=== PATIENT | male | born 1980 | race Caucasian/White ===

== ENCOUNTER 2017-01-24 11:25 | Emergency (ER) | payer SELFPAY ==
[2017-01-24] MEDS ORDERED: CYCLOBENZAPRINE 10MG STARTER 3 TAB BTL PO STA (12:28)
[2017-01-24] MEDS ORDERED: KETOROLAC 60 MG/2 ML VIAL IM STA (12:28)
--- NOTE | 2017-01-24 12:32 | ED ---
General Adult HPI - General Chief complaint: Back Pain/Injury Stated complaint: LOWER BACK PAIN Time Seen by Provider: 01/24/17 12:00 Source: patient, RN notes reviewed Mode of arrival: ambulatory Limitations: no limitations - History of Present Illness Initial comments: Patient 36-year-old male who presents emergency room today with a chief complaint of increased left lower back pain over the last few days. He denies any specific injury or trauma. He does not that he feels pain radiate down into the left buttocks along with at times pain shooting down to the left foot. Patient does admit that it's worse with certain movements. She suggested time sleeping at night due to pain. He spent using ibuprofen along with Tylenol for the pain with little relief the symptoms. He denies any bowel or bladder incontinence retention. Denies any saddle anesthesia. Patient denies any recent fever, chills, shortness of breath, chest pain, abdominal pain, nausea or vomiting, dysuria or hematuria, constipation or diarrhea, headaches or visual changes, or any other complaints. - Related Data Previous Rx's Medication Instructions Recorded Cyclobenzaprine [Flexeril] 10 mg PO TID #20 tab 01/24/17 Dexamethasone 0.75 mg PO DIRECTED #12 tablet 01/24/17 Lidocaine [Lidoderm 5% Patch] 1 patch TRANSDERM DAILY #7 patch 01/24/17 Allergies Allergy/AdvReac Type Severity Reaction Status Date / Time No Known Allergies Allergy Verified 01/24/17 11:46 Review of Systems ROS Statement: Those systems with pertinent positive or pertinent negative responses have been documented in the HPI. ROS Other: All systems not noted in ROS Statement are negative. Past Medical History Past Medical History: No Reported History History of Any Multi-Drug Resistant Organisms: None Reported Past Surgical History: Appendectomy Past Psychological History: No Psychological Hx Reported Smoking Status: Never smoker Past Alcohol Use History: None Reported Past Drug Use History: None Reported General Exam - General Exam Comments Initial Comments: General: The patient is awake and alert, in no distress, and does not appear acutely ill. Eye: Pupils are equal, round and reactive to light, extra-ocular movements are intact. No nystagmus. There is normal conjunctiva bilaterally. No signs of icterus. Ears, nose, mouth and throat: There are moist mucous membranes and no oral lesions. Neck: The neck is supple, there is no tenderness or JVD. Cardiovascular: There is a regular rate and rhythm. No murmur, rub or gallop is appreciated. Respiratory: Lungs are clear to auscultation, respirations are non-labored, breath sounds are equal. No wheezes, stridor, rales, or rhonchi. Gastrointestinal: Soft, non-distended, non-tender abdomen without masses or organomegaly noted. There is no rebound or guarding present. No CVA tenderness. Bowel sounds are unremarkable. Musculoskeletal: Patient does have a normal appearance of the thoracic or lumbar spine with no step-offs forms appreciated. No tenderness over the spinous processes. Patient does have some paravertebral tenderness locally to the left side of the lumbar spine at L3-L4. Does have some tenderness over the SI joint. Strength 5/5. Sensation intact. Pulses equal bilaterally 2+. Neurological: A&O x 3. CN II-XII intact, There are no obvious motor or sensory deficits. Coordination appears grossly intact. Speech is normal. Skin: Skin is warm and dry and no rashes or lesions are noted. Psychiatric: Cooperative, appropriate mood & affect, normal judgment. Limitations: no limitations Course Vital Signs 01/24/17 11:43 Temperature 98.9 F Pulse Rate 69 Respiratory 18 Rate Blood Pressure 181/103 O2 Sat by Pulse 98 Oximetry Medical Decision Making - Medical Decision Making Patient given dose of Toradol here in the emergency room along with muscular large. Advised to use anti-inflammatories along with muscle relaxer, phan steroid aniline patch for symptoms. Advised follow-up with family doctor or orthopedic for further evaluation. Sinus symptoms of concern and reason for return were discussed with the patient. He states understanding and is in agreement. Disposition Clinical Impression: Acute low back pain Disposition: HOME SELF-CARE Condition: Good Instructions: Acute Low Back Pain (ED) Additional Instructions: Please use medication as discussed. Please follow-up with family doctor in the next 2 days of symptoms have not improved. Please return to emergency room if the symptoms increase or worsen or for any other concerns. Prescriptions: Cyclobenzaprine [Flexeril] 10 mg PO TID #20 tab Dexamethasone 0.75 mg PO DIRECTED #12 tablet Lidocaine [Lidoderm 5% Patch] 1 patch TRANSDERM DAILY #7 patch Referrals: None,Stated [Primary Care Provider] - 1-2 days Elissa Rashid MD [STAFF PHYSICIAN] - 1-2 days Heithoff,Mark, DO [Doctor of Osteopathic Medicine] - 1-2 days Time of Disposition: 12:31
[2017-01-24 12:35] VITALS: BP 139/94; PULSE 108; RESP 20
[2017-01-24 12:39] VITALS: TEMP 97.9
== END 2017-01-24 12:45 | disposition home or self-care (01) ==
LOC: EC 11:25
DX: M54.5 Low back pain (principal)
CPT/HCPCS: 99283 ×2; 96372 ×2; J1885

== ENCOUNTER 2017-04-14 19:41 | Emergency (ER) | payer OTHER ==
--- NOTE | 2017-04-14 20:46 | ED ---
General Adult HPI - General Chief complaint: Urogenital Stated complaint: Unable to urinate Time Seen by Provider: 04/14/17 20:15 Source: patient, family, RN notes reviewed, old records reviewed Mode of arrival: ambulatory Limitations: no limitations - History of Present Illness Initial comments: chief complaint and history of present illness a 36-year-old male here with his . The patient reports he's had some difficulty emptying his bladder. Currently is over 250 ML's of urine remained after having urinated. He reports never able to get much more than several tablespoons out. He reports that this started several months ago. He did not follow-up with either her back surgeon because of low back pain or urologist. He denies taking any antihistamines lately. He reports for the last several months been having this problem on again off again. Denies fever denies chills - Related Data Home Medications Medication Instructions Recorded Confirmed Ibuprofen [Motrin] 600 mg PO Q6HR PRN 01/25/17 04/14/17 Previous Rx's Medication Instructions Recorded Levofloxacin [Levaquin] 500 mg PO DAILY #6 tab 04/14/17 Allergies Allergy/AdvReac Type Severity Reaction Status Date / Time No Known Allergies Allergy Verified 04/14/17 20:01 Review of Systems ROS Statement: Those systems with pertinent positive or pertinent negative responses have been documented in the HPI. review of systems no other complaints other than occasional urinary retention. Past medical problems chronic back pain. The patient's surgeries include appendectomy. Family history noncontributory. Nonsmoker nondrinker. No known ALLERGIES ROS Other: All systems not noted in ROS Statement are negative. Past Medical History Past Medical History: No Reported History Additional Past Medical History / Comment(s): chronic back pain History of Any Multi-Drug Resistant Organisms: None Reported Past Surgical History: Appendectomy Past Anesthesia/Blood Transfusion Reactions: No Reported Reaction Past Psychological History: No Psychological Hx Reported Smoking Status: Never smoker Past Alcohol Use History: None Reported Past Drug Use History: None Reported - Past Family History Mother Family Medical History: No Reported History Father Family Medical History: No Reported History General Exam - General Exam Comments Initial Comments: pertinent physical examination Patient is here because of recurrent difficulty emptying his bladder. Today he reports she was only able to urinate a couple tablespoons at a time. Complains of mild suprapubic discomfort and fullness. Denies any numbness tingling or neurological deficits.Vital signs show temperature 98.1 pulse 77 respiratory rate 20 pulse ox 96% room air blood pressure 140/81 Examination of the abdomen is minimally tender with deep palpation of the suprapubic region. No masses found. Patient will provide a urine, a Castillo catheter will be placed. We did discuss urethral, prostate and bladder situations that need to be investigated by urology. The patient be given a urologist follow-up name. Limitations: no limitations Course Vital Signs 04/14/17 19:54 Temperature 98.1 F Pulse Rate 77 Respiratory 20 Rate Blood Pressure 140/81 O2 Sat by Pulse 96 Oximetry Medical Decision Making - Medical Decision Making medical decision-making. The patient is here because of acute urinary retention. Urinalysis to be performed. Patient will have an indwelling catheter placed and he'll be advised to follow-up with on-call urology Urinalysis shows nitrate negative. Leuk esterase positive. Greater than 180 whites and greater than 180 reds. Culture pending. Patient will have a Castillo catheter placed advised to return that the Castillo cath removed in 3 days if he is not able to get in to see his family doctor or urologist for them to remove it. He'll be placed on Levaquin 500 daily for 7 days. - Lab Data Lab Results 04/14/17 Range/Units 20:50 Urine Color Yellow Urine Appearance Turbid (Clear) Urine pH 6.0 (5.0-8.0) Ur Specific [place] 1.019 (1.001-1.035) Urine Protein 2+ H (Negative) Urine Glucose (UA) Negative (Negative) Urine Ketones Negative (Negative) Urine Blood Moderate H (Negative) Urine Nitrite Negative (Negative) Urine Bilirubin Negative (Negative) Urine Urobilinogen <2.0 (<2.0) mg/dL Ur Leukocyte Esterase Large H (Negative) Urine RBC >182 H (0-5) /hpf Urine WBC >182 H (0-5) /hpf Urine WBC Clumps Many H (None) /hpf Disposition Clinical Impression: Urinary retention, Urinary tract infection Disposition: HOME SELF-CARE Condition: Fair Instructions: Urinary Tract Infection in Men (ED), Urinary Retention in Men (ED ) Additional Instructions: Take Levaquin daily until complete 7 days. Follow-up family physician to have the Castillo catheter removed in 3 days or with the urologist for further examination and management. Prescriptions: Levofloxacin [Levaquin] 500 mg PO DAILY #6 tab Referrals: Kenya Maynard III, MD [Primary Care Provider] - 1-2 days Time of Disposition: 21:20
[2017-04-14 21:10] LABS: Appearance,Urine Turbid (Clear); Bilirubin,Urine Negative (Negative); Blood,Urine Moderate (Negative); Color,Urine Yellow; Glucose,Urine (UA) Negative (Negative); Ketones,Urine Negative (Negative); Leukocyte Esterase,Urine Large (Negative); Nitrite,Urine Negative (Negative); Protein,Urine 2+ (Negative); RBC,Urine >182 /hpf (0-5); Specific Gravity,Urine 1.019 (1.001-1.035); Urobilinogen,Urine <2.0 mg/dL (<2.0); WBC,Urine >182 /hpf (0-5)
[2017-04-14] MEDS ORDERED: LEVOFLOXACIN 500 MG TAB PO STA (21:18)
[2017-04-14 23:36] VITALS: BP 133/75; PULSE 78; RESP 18; TEMP 98
== END 2017-04-14 21:43 | disposition home or self-care (01) ==
LOC: EC 19:41
DX: N39.0 Urinary tract infection, site not specified (principal); R33.9 Retention of urine, unspecified
CPT/HCPCS: 51702; 81001; 87086; 99284

== ENCOUNTER 2017-04-16 08:50 | Emergency (ER) | payer OTHER ==
[2017-04-16 08:54] VITALS: BP 117/64; PULSE 67; RESP 15; TEMP 97.3
--- NOTE | 2017-04-16 09:09 | ED ---
General Adult HPI - General Chief complaint: Urogenital Stated complaint: male gu - needs cath removed Time Seen by Provider: 04/16/17 08:55 Source: patient, RN notes reviewed Mode of arrival: ambulatory Limitations: no limitations - History of Present Illness Initial comments: 36-year-old male presents to the emergency department with a chief complaint of wanting his catheter out. Patient was given a catheterization days ago after having urinary retention. He was also suspicious for UTI. 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 Patient called urology and they're unable to see him due to his insurance. He states that he does not want have a catheter in anymore. He states all his discomfort and issues have resolved. He states he's had issues with this on and off for a long time now he has not followed up with his doctor regarding the issues. He denies any blood or odor to the urine at this time. He states the catheter is been draining without issues. He states he'll follow-up with his doctor for this but he does not want a catheter in anymore.Patient denies any recent fever, chills, shortness of breath, chest pain, back pain, abdominal pain, nausea vomiting, numbness or tingling, dysuria or hematuria, constipation or diarrhea, headaches or visual changes, or any other current symptoms. - Related Data Home Medications Medication Instructions Recorded Confirmed Ibuprofen [Motrin] 600 mg PO Q6HR PRN 01/25/17 04/16/17 Previous Rx's Medication Instructions Recorded Levofloxacin [Levaquin] 500 mg PO DAILY #6 tab 04/14/17 Allergies Allergy/AdvReac Type Severity Reaction Status Date / Time No Known Allergies Allergy Verified 04/16/17 09:01 Review of Systems ROS Statement: Those systems with pertinent positive or pertinent negative responses have been documented in the HPI. ROS Other: All systems not noted in ROS Statement are negative. Past Medical History Past Medical History: No Reported History Additional Past Medical History / Comment(s): chronic back pain History of Any Multi-Drug Resistant Organisms: None Reported Past Surgical History: Appendectomy Past Anesthesia/Blood Transfusion Reactions: No Reported Reaction Past Psychological History: No Psychological Hx Reported Smoking Status: Never smoker Past Alcohol Use History: None Reported Past Drug Use History: None Reported - Past Family History Mother Family Medical History: No Reported History Father Family Medical History: No Reported History General Exam - General Exam Comments Initial Comments: General: The patient is awake and alert, in no distress, and does not appear acutely ill. Eye: Pupils are equal, round. Ears, nose, mouth and throat: There are moist mucous membranes. Neck: The neck is supple, there is no tenderness. Cardiovascular: There is a regular rate and rhythm. No murmur, rub or gallop is appreciated. Respiratory: Lungs are clear to auscultation, respirations are non-labored, breath sounds are equal. No wheezes, stridor, rales, or rhonchi. Gastrointestinal: Soft, non-distended, non-tender abdomen without masses or organomegaly noted. There is no rebound or guarding present. No CVA tenderness. Bowel sounds are unremarkable. Back: There is no tenderness to palpation in the midline. There is no obvious deformity. No rashes noted. Musculoskeletal: Normal ROM, no tenderness, There is no pedal edema. There is no calf tenderness or swelling. Sensation intact. Pulses equal bilaterally 2+. Neurological: CN II-XII intact, There are no obvious motor or sensory deficits. Coordination appears grossly intact. Speech is normal. Skin: Skin is warm and dry and no rashes or lesions are noted. Psychiatric: Cooperative, appropriate mood & affect, normal judgment. Limitations: no limitations Course Vital Signs 04/16/17 08:51 Temperature 97.3 F L Pulse Rate 67 Respiratory 15 Rate Blood Pressure 117/64 O2 Sat by Pulse 100 Oximetry Medical Decision Making - Medical Decision Making 36-year-old male presents for wanting his catheter removed. This was placed 2 days ago. He states he followed up with urology however they will not see him because of insurance issues. He states that he wants the catheter out. He states is uncomfortable due to hard time doing his job with this. He states all his symptoms have resolved. He has been taking the antibiotics. We did discuss this time I do not know the cause of his urinary retention. We did discuss possible etiologies for her. We discussed his culture was negative. We discussed that by taking the catheter out now there is a good chance that he will return to the emergency room this evening and has had the catheter replaced. We discussed the importance of following up and the possible etiologies with causing his urinary retention. We did discuss the importance of follow-up we did discuss everything in detail and the patient states he still wants the catheter out. At this time we will respect his wishes we discussed that we would like to keep the catheter in until he has follow-up. He states that he does not want this. This time the catheter was removed. We discussed follow-up with his family care doctor and all questions. Him and his family stated they understood. Disposition Clinical Impression: Urinary retention Disposition: HOME SELF-CARE Condition: Stable Instructions: Urinary Retention in Men (ED) Additional Instructions: Please use medication as discussed. Please follow up with family doctor if symptoms have not improved over the next two days. Please return to the emergency room if your symptoms increase or worsen or for any other concerns. Referrals: Kenya Maynard III, MD [Primary Care Provider] - 1-2 days Time of Disposition: 09:09
== END 2017-04-16 09:21 | disposition home or self-care (01) ==
LOC: EC 08:50
DX: R33.9 Retention of urine, unspecified (principal)
CPT/HCPCS: 99283

== ENCOUNTER → 2018-04-04 | Outpatient (CLI) | payer OTHER ==
--- NOTE | 2018-04-05 05:50 | MR ---
EXAMINATION TYPE: MR shoulder LT wo con DATE OF EXAM: 04/04/2018 COMPARISON: None HISTORY: Pain in left shoulder TECHNIQUE: Multiplanar, multisequence imaging of the left shoulder is performed without contrast. FINDINGS: There is shoulder joint effusion. The glenoid ranulfo appear intact. The subscapularis tendon appears i ntact. The biceps tendon is intact. There is some spurring at the AC joint and mild subacromial impingement. There is abnormal increased signal in the supraspinatus tendon at the greater tuberosity of the humerus with partial retraction. I see no fracture. There is no focal bone destruction. IMPRESSION: Large full-thickness rotator cuff tear with partial retraction of the supraspinatus tendon. Shoulder joint effusion. No fracture seen. Subacromial impingement.
== END ==
LOC: RADMRIMAIN 12:36
PROVIDERS: ATTEND Chiropractor
DX: M75.102 Unspecified rotator cuff tear or rupture of left shoulder, not specified as traumatic (principal)

== ENCOUNTER 2023-02-14 13:50 | Inpatient (IN) | payer BC, OTHER ==
--- NOTE | 2023-02-14 15:07 | ED ---
Abdominal Pain HPI - General Chief Complaint: Abdominal Pain Stated Complaint: abd pain Time Seen by Provider: 02/14/23 14:34 Source: patient, RN notes reviewed Mode of arrival: ambulatory Limitations: no limitations - History of Present Illness Initial Comments: 42 -year-old male presents emergency Department with chief complaint of abdominal pain. Patient states that he has low abdominal pain worsening. States it does wax and wane, but nothing today for better he had some difficulty urinating. He states that change in bowel habits. He states just doesn't feel usual self that he's been losing some weight. Patient denies any back pain denies any flank pain he reports fevers and chills. - Related Data Home Medications Medication Instructions Recorded Confirmed Ibuprofen [Motrin] 600 mg PO Q6HR PRN 01/25/17 04/16/17 Previous Rx's Medication Instructions Recorded Levofloxacin [Levaquin] 500 mg PO DAILY #6 tab 04/14/17 Allergies Allergy/AdvReac Type Severity Reaction Status Date / Time No Known Allergies Allergy Verified 02/14/23 13:55 Review of Systems ROS Statement: Those systems with pertinent positive or pertinent negative responses have been documented in the HPI. ROS Other: All systems not noted in ROS Statement are negative. Past Medical History Past Medical History: No Reported History Additional Past Medical History / Comment(s): chronic back pain History of Any Multi-Drug Resistant Organisms: None Reported Past Surgical History: Appendectomy Additional Past Surgical History / Comment(s): Kidney stone Past Anesthesia/Blood Transfusion Reactions: No Reported Reaction Past Psychological History: No Psychological Hx Reported Smoking Status: Never smoker Past Alcohol Use History: None Reported Past Drug Use History: None Reported - Past Family History Mother Family Medical History: No Reported History Father Family Medical History: No Reported History General Exam Limitations: no limitations General appearance: alert, in no apparent distress Head exam: Present: atraumatic, normocephalic, normal inspection Neck exam: Present: normal inspection. Absent: tenderness, meningismus, lymphadenopathy Respiratory exam: Present: normal lung sounds bilaterally. Absent: respiratory distress, wheezes, rales, rhonchi, stridor Cardiovascular Exam: Present: regular rate, normal rhythm, normal heart sounds. Absent: systolic murmur, diastolic murmur, rubs, gallop, clicks GI/Abdominal exam: Present: soft, tenderness, normal bowel sounds. Absent: distended, guarding, rebound, rigid Back exam: Absent: CVA tenderness (R), CVA tenderness (L) Neurological exam: Present: alert, oriented X3 Course Vital Signs 02/14/23 13:53 Temperature 98.4 F Pulse Rate 85 Respiratory 20 Rate Blood Pressure 137/80 O2 Sat by Pulse 99 Oximetry Medical Decision Making - Medical Decision Making Was pt. sent in by a medical professional or institution (, PA, ASSISTANT PROPERTY MANAGER, urgent care, hospital, or long-term...) When possible be specific @ -No Did you speak to anyone other than the patient for history (EMS, parent, family, police, friend...)? What history was obtained from this source @ -No Did you review nursing and triage notes (agree or disagree)? Why? @ -I reviewed and agree with nursing and triage notes Were old charts reviewed (outside hosp., previous admission, EMS record, old EKG, old radiological studies, urgent care reports/EKG's, long-term records)? Report findings @ -Review prior charting, labs or studies Differential Diagnosis (chest pain, altered mental status, abdominal pain women, abdominal pain men, vaginal bleeding, weakness, fever, dyspnea, syncope, headache, dizziness, GI bleed, back pain, seizure, CVA, palpatations, mental health, musculoskeletal)? @ -Differential Abdominal Pain Men: Appendicitis, cholecystitis, diverticulosis, ischemic bowel, pancreatitis, hepatitis, UTI, gastroenteritis, AAA, incarcerated hernia, bowel obstruction, constipation, inflammatory bowel, hepatitis, peptic ulcer disease, splenic infarction, perforated viscus, testicular torsion, this is not meant to be an all-inclusive listble EKG interpreted by me (3pts min.). @ -None X-rays interpreted by me (1pt min.). @ -None done CT interpreted by me (1pt min.). @ -CT abdomen and pelvis showing mid small bowel obstruction, distended bladder U/S interpreted by me (1pt. min.). @ -None done What testing was considered but not performed or refused? (CT, X-rays, U/S, labs)? Why? @ -None What meds were considered but not given or refused? Why? @ -None Did you discuss the management of the patient with other professionals (professionals i.e. , LAURE, ASSISTANT PROPERTY MANAGER, lab, RT, psych nurse, social director, service station helper, teacher, flight deck officer, protective services case worker)? Give summary @ -[Dr. Isaac and [facility] for admission secondary to small bowel obstruction Was smoking cessation discussed for >3mins.? @ -No Was critical care preformed (if so, how long)? @ -No Were there social determinants of health that impacted care today? How? (Homelessness, low income, unemployed, alcoholism, drug addiction, transportation, low edu. Level, literacy, decrease access to med. care, fdc, rehab)? @ -No Was there de-escalation of care discussed even if they declined (Discuss DNR or withdrawal of care, Hospice)? DNR status @ -No What co-morbidities impacted this encounter? (DM, HTN, Smoking, COPD, CAD, Cancer, CVA, ARF, Chemo, Hep., AIDS, mental health diagnosis, sleep apnea, morbid obesity)? @ -Prior urinary retention, appendectomy Was patient admitted / discharged? Hospital course, mention meds given and route, prescriptions, significant lab abnormalities, going to OR and other pertinent info. @ -Admitted patient's found to have small bowel obstruction patient will have NG tube placed for decompression, patient does have urinary retention Csatillo catheter was placed there is no clear cause for this but is has been a reoccurring issue over the last several years for patient. Undiagnosed new problem with uncertain prognosis? @ -No Drug Therapy requiring intensive monitoring for toxicity (Heparin, Nitro, Insulin, Cardizem)? @ -No Were any procedures done? @ -No Diagnosis @ -Small bowel obstruction, urinary retention Acute, or Chronic, or Acute on Chronic? @ -Acute Uncomplicated (without systemic symptoms) or Complicated (systemic symptoms)? @ -complicated Side effects of treatment? @ -No Exacerbation, Progression, or Severe Exacerbation? @ -No Poses a threat to life or bodily function? How? (Chest pain, USA, VT, pneumonia, PE, COPD, DKA, ARF, appy, cholecystitis, CVA, Diverticulitis, Homicidal, Suicidal, threat to staff... and all critical care pts) @ -No - Lab Data Result diagrams: 02/14/23 15:04 02/14/23 15:04 Lab Results 02/14/23 02/14/23 02/14/23 Range/Units 15:04 15:04 15:04 WBC 11.4 H (3.8-10.6) k/uL RBC 5.40 (4.30-5.90) m/uL Hgb 14.4 (13.0-17.5) gm/dL Hct 44.2 (39.0-53.0) % MCV 81.9 (80.0-100.0) fL MCH 26.7 (25.0-35.0) pg MCHC 32.6 (31.0-37.0) g/dL RDW 12.8 (11.5-15.5) % Plt Count 313 (150-450) k/uL MPV 6.7 Neutrophils % 87 % Lymphocytes % 6 % Monocytes % 5 % Eosinophils % 1 % Basophils % 0 % Neutrophils # 9.9 H (1.3-7.7) k/uL Lymphocytes # 0.7 L (1.0-4.8) k/uL Monocytes # 0.6 (0-1.0) k/uL Eosinophils # 0.1 (0-0.7) k/uL Basophils # 0.0 (0-0.2) k/uL Sodium 136 L (137-145) mmol/L Potassium 4.6 (3.5-5.1) mmol/L Chloride 97 L (98-107) mmol/L Carbon Dioxide 26 (22-30) mmol/L Anion Gap 13 mmol/L BUN 23 H (9-20) mg/dL Creatinine 0.97 (0.66-1.25) mg/dL Est GFR (CKD-EPI)AfAm >90 (>60 ml/min/1.73 sqM) Est GFR (CKD-EPI)NonAf >90 (>60 ml/min/1.73 sqM) Glucose 109 H (74-99) mg/dL Plasma Lactic Acid Arnoldo (0.7-2.0) mmol/L Calcium 9.9 (8.4-10.2) mg/dL Total Bilirubin 0.8 (0.2-1.3) mg/dL AST 21 (17-59) U/L ALT 19 (4-49) U/L Alkaline Phosphatase 98 (38-126) U/L Total Protein 7.5 (6.3-8.2) g/dL Albumin 4.1 (3.5-5.0) g/dL Lipase 25 (23-300) U/L Urine Color Yellow Urine Appearance Clear (Clear) Urine pH 5.5 (5.0-8.0) Ur Specific Frakes 1.029 (1.001-1.035) Urine Protein Trace H (Negative) Urine Glucose (UA) Negative (Negative) Urine Ketones Negative (Negative) Urine Blood Negative (Negative) Urine Nitrite Negative (Negative) Urine Bilirubin Negative (Negative) Urine Urobilinogen <2.0 (<2.0) mg/dL Ur Leukocyte Esterase Negative (Negative) 02/14/23 Range/Units 15:04 WBC (3.8-10.6) k/uL RBC (4.30-5.90) m/uL Hgb (13.0-17.5) gm/dL Hct (39.0-53.0) % MCV (80.0-100.0) fL MCH (25.0-35.0) pg MCHC (31.0-37.0) g/dL RDW (11.5-15.5) % Plt Count (150-450) k/uL MPV Neutrophils % % Lymphocytes % % Monocytes % % Eosinophils % % Basophils % % Neutrophils # (1.3-7.7) k/uL Lymphocytes # (1.0-4.8) k/uL Monocytes # (0-1.0) k/uL Eosinophils # (0-0.7) k/uL Basophils # (0-0.2) k/uL Sodium (137-145) mmol/L Potassium (3.5-5.1) mmol/L Chloride (98-107) mmol/L Carbon Dioxide (22-30) mmol/L Anion Gap mmol/L BUN (9-20) mg/dL Creatinine (0.66-1.25) mg/dL Est GFR (CKD-EPI)AfAm (>60 ml/min/1.73 sqM) Est GFR (CKD-EPI)NonAf (>60 ml/min/1.73 sqM) Glucose (74-99) mg/dL Plasma Lactic Acid Arnoldo 1.2 (0.7-2.0) mmol/L Calcium (8.4-10.2) mg/dL Total Bilirubin (0.2-1.3) mg/dL AST (17-59) U/L ALT (4-49) U/L Alkaline Phosphatase (38-126) U/L Total Protein (6.3-8.2) g/dL Albumin (3.5-5.0) g/dL Lipase (23-300) U/L Urine Color Urine Appearance (Clear) Urine pH (5.0-8.0) Ur Specific Frakes (1.001-1.035) Urine Protein (Negative) Urine Glucose (UA) (Negative) Urine Ketones (Negative) Urine Blood (Negative) Urine Nitrite (Negative) Urine Bilirubin (Negative) Urine Urobilinogen (<2.0) mg/dL Ur Leukocyte Esterase (Negative) Disposition Clinical Impression: SBO (small bowel obstruction), Urinary retention Disposition: ADMITTED IP TO THIS [facility] Condition: Fair Referrals: None,Stated [Primary Care Provider] - 1-2 days Time of Disposition: 16:32
[2023-02-14] MEDS: KETOROLAC 15 MG/ML 1 ML VIAL IVP STA (15:11)
[2023-02-14] MEDS: SODIUM CHLORIDE 0.9% 1,000 ML IV STA (15:15)
[2023-02-14 15:32] LABS: Basophils % (A) 0 %; Eosinophils # (A) 0.1 k/uL (0-0.7); Eosinophils % (A) 1 %; HCT 44.2 % (39.0-53.0); HGB 14.4 gm/dL (13.0-17.5); Lymphocytes # (A) 0.7 k/uL (1.0-4.8); Lymphocytes % (A) 6 %; MCH 26.7 pg (25.0-35.0); MCHC 32.6 g/dL (31.0-37.0); MCV 81.9 fL (80.0-100.0); Mean Platelet Volume 6.7; Monocytes # (A) 0.6 k/uL (0-1.0); Monocytes % (A) 5 %; Neutrophils # (A) 9.9 k/uL (1.3-7.7); Neutrophils % (A) 87 %; Platelet Count 313 k/uL (150-450); RDW 12.8 % (11.5-15.5); WBC 11.4 k/uL (3.8-10.6)
[2023-02-14 15:36] LABS: Appearance,Urine Clear (Clear); Bilirubin,Urine Negative (Negative); Blood,Urine Negative (Negative); Color,Urine Yellow; Glucose,Urine (UA) Negative (Negative); Ketones,Urine Negative (Negative); Leukocyte Esterase,Urine Negative (Negative); Nitrite,Urine Negative (Negative); PH, Urine 5.5 (5.0-8.0); Protein,Urine Trace (Negative); Specific Gravity,Urine 1.029 (1.001-1.035); Urobilinogen,Urine <2.0 mg/dL (<2.0)
[2023-02-14 16:17] LABS: ALT 19 U/L (4-49); AST 21 U/L (17-59); African American GFR (CKD) >90 (>60 ml/min/1.73 sqM); Albumin 4.1 g/dL (3.5-5.0); Alkaline Phosphatase 98 U/L (38-126); Anion Gap 13 mmol/L; Blood Urea Nitrogen 23 mg/dL (9-20); Calcium 9.9 mg/dL (8.4-10.2); Carbon Dioxide 26 mmol/L (22-30); Chloride 97 mmol/L (98-107); Glucose 109 mg/dL (74-99); Lipase 25 U/L (23-300); Non-African American GFR(CKD) >90 (>60 ml/min/1.73 sqM); Potassium 4.6 mmol/L (3.5-5.1); Sodium 136 mmol/L (137-145); Total Bilirubin 0.8 mg/dL (0.2-1.3); Total Protein 7.5 g/dL (6.3-8.2)
--- NOTE | 2023-02-14 16:17 | CT ---
EXAMINATION TYPE: CT abdomen pelvis w con DATE OF EXAM: 02/14/2023 COMPARISON: None HISTORY: lower abdominal pain and urination issues. CT DLP: 1145.30 mGycm Automated exposure control for dose reduction was used. TECHNIQUE: Helical acquisition of images was performed from the lung bases through the pelvis. CONTRAST: Performed without Oral Contrast and with IV Contrast, patient injected with 100 mL of Isovue 300. FINDINGS: The visualized lung bases are clear Gallbladder is normal. There are a few well-circumscribed hypodensities within the liver most likely representing cysts. The re is no focal mass or organomegaly involving the pancreas, spleen or adrenal glands. There is no solid renal mass or hydronephrosis. The caliber the abdominal aorta is normal. There are multiple markedly dilated air and fluid-filled loops of small bowel consistent with a mid t o distal small bowel obstruction. There is no free intraperitoneal air or fluid. The urinary bladder is markedly distended. There is no pelvic mass, free fluid, abscess or adenopathy . The osseous structures are intact. IMPRESSION: Findings consistent with the mid to distal small bowel obstruction.
[2023-02-14] MEDS ORDERED: HYDROmorphone 0.5 MG/0.5 ML SYRINGE IVP PRN (16:48)
[2023-02-14] MEDS ORDERED: NALOXONE 0.4 MG/ML 1 ML VIAL IV PRN (16:48)
--- NOTE | 2023-02-14 17:47 | XR ---
KUB HISTORY: Tube placement COMPARISON: None TECHNIQUE: Single upright portable view the abdomen was obtained FINDINGS: There is an NG tube within the stomach. There are dilated air-filled loops of small bowel consistent with a small bowel obstruction. The lung bases are clear. IMPRESSION: 1. NG tube within the stomach. 2. Bowel gas pattern consistent with small bowel obstruction. 3. Lung bases are clear.
[2023-02-14] MEDS: SODIUM CHLORIDE 0.9% 1,000 ML IV SCH (18:29)
[2023-02-15] MEDS: ONDANSETRON 4 MG/2 ML VIAL IVP PRN (00:06)
[2023-02-15 11:23] LABS: Basophils % (A) 0 %; Eosinophils % (A) 0 %; HCT 41.3 % (39.0-53.0); HGB 13.1 gm/dL (13.0-17.5); Lymphocytes # (A) 0.4 k/uL (1.0-4.8); Lymphocytes % (A) 5 %; MCH 26.3 pg (25.0-35.0); MCHC 31.9 g/dL (31.0-37.0); MCV 82.6 fL (80.0-100.0); Mean Platelet Volume 7.3; Monocytes # (A) 0.5 k/uL (0-1.0); Monocytes % (A) 5 %; Neutrophils # (A) 8.7 k/uL (1.3-7.7); Neutrophils % (A) 88 %; Platelet Count 282 k/uL (150-450); RBC 4.99 m/uL (4.30-5.90); RDW 12.7 % (11.5-15.5); WBC 9.8 k/uL (3.8-10.6)
[2023-02-15 11:31] LABS: African American GFR (CKD) >90 (>60 ml/min/1.73 sqM); Anion Gap 11 mmol/L; Blood Urea Nitrogen 26 mg/dL (9-20); Calcium 9.3 mg/dL (8.4-10.2); Carbon Dioxide 24 mmol/L (22-30); Chloride 101 mmol/L (98-107); Glucose 109 mg/dL (74-99); Non-African American GFR(CKD) >90 (>60 ml/min/1.73 sqM); Potassium 4.3 mmol/L (3.5-5.1); Sodium 136 mmol/L (137-145)
--- NOTE | 2023-02-15 11:44 | P.GSCN ---
History of Present Illness Consult date: 02/15/23 History of present illness: CHIEF COMPLAINT: Abdominal pain HISTORY OF PRESENT ILLNESS: This is a 42-year-old male who presented to the hospital with complaints of lower abdominal pain that started 4 days ago. Pain is mostly in the left lower abdomen. He reports feeling bloated. He did have episode of vomiting on Wednesday. He reports having bowel movements. Denies any flatus. Complains of abdominal cramping and feeling weak. No prior history of bowel obstruction. He initially rated his pain about 8 or 9 out of 10 and now pain is about a 7 out of 10 after NG tube has been placed patient had 700 mL bilious output through NG tube. Computed tomography scan had shown evidence of small bowel obstruction. Patient has past surgical history of appendectomy. Denies any cardiac history. PAST MEDICAL HISTORY: See below PAST SURGICAL HISTORY: See below MEDICATIONS: See below ALLERGIES: See below SOCIAL HISTORY: No illicit drug use. REVIEW OF SYSTEMS: CONSTITUTIONAL: Denies fever or chills. HEENT: Denies blurred vision, vision changes, or eye pain. Denies hemoptysis CARDIOVASCULAR: Denies chest pain or pressure. RESPIRATORY: No shortness of breath. GASTROINTESTINAL: See HPI for pertinent findings HEMATOLOGIC: Denies bleeding disorders. GENITOURINARY: Denies any blood in urine or increased urinary frequency. SKIN: Denies pruitis. Denies rash. PHYSICAL EXAM: VITAL SIGNS: Reviewed GENERAL: Well-developed in no acute distress. ABDOMEN: Soft. Mildly distended. Tenderness to palpation in the left lower abdomen NEUROLOGIC: Alert and oriented. Cranial nerves II through XII grossly intact. LABORATORY DATA: WBC 11.4 down to 9.8 Hgb 13.1 platelets 282 Sodium 136 potassium 4.3 creatinine 0.94 IMAGING: Computed tomography scan abdomen and pelvis reports findings consistent with mid to distal small bowel obstruction ASSESSMENT: 1. Small bowel obstruction 2. Abdominal pain 3. History of appendectomy 4. Leukocytosis resolved PLAN: -Continue NG tube for decompression -Patient nothing by mouth -CT enterography ordered -Continue IV fluids -Continue pain management and antiemetics Thank you for this consultation Physician Roll Weigher note has been reviewed by physician. Signing provider agrees with the documented findings, assessment, and plan of care. I have personally seen and examined the patient, reviewed the BONDACTOR MACHINE OPERATOR /PAs history, exam and MDM and agree with the assessment and plan as written. Based on total visit time, I have performed more than 50% of the visit. As above: Patient presents with crampy abdominal pain. Decreased bowel function prior to admission. 1 episode of vomiting at home and again here. CAT scan from yesterday and CT enterography reviewed in detail with radiology on more than one occasion today. At this time patient has evidence of enteritis involving what appears to represent a loop of the jejunum with an adjacent loop of sigmoid colon was also somewhat inflamed. Etiology unclear but inflammatory bowel disease remains high in the differential. Patient describes a 2 year history of intermittent abdominal pain and cramps. History of previous appendectomy. Patient is tender on exam in the left midabdomen. No peritoneal signs at present. No evidence of free air. Clinical scenario reviewed with patient in detail. Most likely etiology at this time is inflammatory bowel disease. GI not available this week for consults. Discussed to cases with GI earlier today including his. Will begin Solu-Medrol 20 mg IV every 8. Broad- spectrum antibiotics. Continue to monitor closely. Option of tertiary care referral for GI consultation and possible colorectal surgery evaluation also discussed as an option. We'll monitor the patient overnight and reassess tomorrow. Past Medical History Past Medical History: No Reported History Additional Past Medical History / Comment(s): chronic back pain History of Any Multi-Drug Resistant Organisms: None Reported Past Surgical History: Appendectomy Additional Past Surgical History / Comment(s): Kidney stone Past Anesthesia/Blood Transfusion Reactions: No Reported Reaction Past Psychological History: No Psychological Hx Reported Smoking Status: Never smoker Past Alcohol Use History: None Reported Past Drug Use History: None Reported - Past Family History Mother Family Medical History: No Reported History Father Family Medical History: No Reported History Medications and Allergies Home Medications Medication Instructions Recorded Confirmed Type No Known Home Medications 02/14/23 02/14/23 History Allergies Allergy/AdvReac Type Severity Reaction Status Date / Time No Known Allergies Allergy Verified 02/14/23 17:24 Surgical - Exam Vital Signs Temp Pulse Resp BP Pulse Ox 98.4 F 85 20 137/80 99 02/14/23 13:53 02/14/23 13:53 02/14/23 13:53 02/14/23 13:53 02/14/23 13:53 Results - Labs 02/15/23 10:42 02/15/23 10:42 Abnormal Lab Results - Last 24 Hours (Table) 02/14/23 02/14/23 02/14/23 Range/Units 15:04 15:04 15:04 WBC 11.4 H (3.8-10.6) k/uL Neutrophils # 9.9 H (1.3-7.7) k/uL Lymphocytes # 0.7 L (1.0-4.8) k/uL Sodium 136 L (137-145) mmol/L Chloride 97 L (98-107) mmol/L BUN 23 H (9-20) mg/dL Glucose 109 H (74-99) mg/dL Urine Protein Trace H (Negative) Diabetes panel 02/14/23 Range/Units 15:04 Sodium 136 L (137-145) mmol/L Potassium 4.6 (3.5-5.1) mmol/L Chloride 97 L (98-107) mmol/L Carbon Dioxide 26 (22-30) mmol/L BUN 23 H (9-20) mg/dL Creatinine 0.97 (0.66-1.25) mg/dL Glucose 109 H (74-99) mg/dL Calcium 9.9 (8.4-10.2) mg/dL AST 21 (17-59) U/L ALT 19 (4-49) U/L Alkaline Phosphatase 98 (38-126) U/L Total Protein 7.5 (6.3-8.2) g/dL Albumin 4.1 (3.5-5.0) g/dL Calcium panel 02/14/23 Range/Units 15:04 Calcium 9.9 (8.4-10.2) mg/dL Albumin 4.1 (3.5-5.0) g/dL Pituitary panel 02/14/23 Range/Units 15:04 Sodium 136 L (137-145) mmol/L Potassium 4.6 (3.5-5.1) mmol/L Chloride 97 L (98-107) mmol/L Carbon Dioxide 26 (22-30) mmol/L BUN 23 H (9-20) mg/dL Creatinine 0.97 (0.66-1.25) mg/dL Glucose 109 H (74-99) mg/dL Calcium 9.9 (8.4-10.2) mg/dL Adrenal panel 02/14/23 Range/Units 15:04 Sodium 136 L (137-145) mmol/L Potassium 4.6 (3.5-5.1) mmol/L Chloride 97 L (98-107) mmol/L Carbon Dioxide 26 (22-30) mmol/L BUN 23 H (9-20) mg/dL Creatinine 0.97 (0.66-1.25) mg/dL Glucose 109 H (74-99) mg/dL Calcium 9.9 (8.4-10.2) mg/dL Total Bilirubin 0.8 (0.2-1.3) mg/dL AST 21 (17-59) U/L ALT 19 (4-49) U/L Alkaline Phosphatase 98 (38-126) U/L Total Protein 7.5 (6.3-8.2) g/dL Albumin 4.1 (3.5-5.0) g/dL
[2023-02-15] MEDS: FAMOTIDINE 20 MG/2 ML VIAL IV SCH (11:56)
[2023-02-15] MEDS: KETOROLAC 15 MG/ML 1 ML VIAL IVP PRN (11:57)
[2023-02-15] MEDS: BARIUM SULFATE 0.1% PO PRN (12:09)
--- NOTE | 2023-02-15 12:28 | P.HPIM ---
History of Present Illness H&P Date: 02/15/23 This is a 42 year old male with no significant medical history. He reports not having a bowel movement for over a week. On Wednesday he began having abdominal pain, lower quadrant coming and going and reported difficulty urinating. He feels bloated. He does report losing some weight also. Vomited once on Wednesday. He has history of appendectomy, no prior bowel obstruction. He denies fever, denies chills. No shortness of breath, no nausea vomiting or diarrhea. He has not had any change in his eating habits, no bloody stools or dark stools. He initially rated his pain about 8 or 9 out of 10 and now pain is about a 7 out of 10 after NG tube has been placed patient had 700 mL bilious output through NG tube. Computed tomography scan had shown evidence of small bowel obstruction. He does have positive bowel sounds and did have small bowel movement. White count 11.4 on admission, Sodium 136. Urinalsis negative. Indwelling catheter was placed for the retention with 1L of urine removed. Patient is admitted to the hospital with general surgery consultation for the small bowel obstruction. REVIEW OF SYSTEMS: CONSTITUTIONAL: No fever, no malaise, no fatigue. HEENT: No recent visual problems or hearing problems. Denied any sore throat. CARDIOVASCULAR: No chest pain, orthopnea, PND, no palpitations, no syncope. PULMONARY: No shortness of breath, no cough, no hemoptysis. GASTROINTESTINAL: No diarrhea, no nausea, no vomiting, has abdominal pain crampy lower quadrant. NEUROLOGICAL: No headaches, no weakness, no numbness. HEMATOLOGICAL: Denies any bleeding or petechiae. GENITOURINARY: Denies any burning micturition, frequency, or urgency. MUSCULOSKELETAL/RHEUMATOLOGICAL: Denies any joint pain, swelling, or any muscle pain. ENDOCRINE: Denies any polyuria or polydipsia. The rest of the 14-point review of systems is negative. PHYSICAL EXAMINATION: GENERAL: The patient is alert and oriented x3, not in any acute distress. Well developed, well nourished. HEENT: Pupils are round and equally reacting to light. EOMI. No scleral icterus. No conjunctival pallor. Normocephalic, atraumatic. No pharyngeal erythema. No thyromegaly. NG tube in place. CARDIOVASCULAR: S1 and S2 present. No murmurs, rubs, or gallops. PULMONARY: Chest is clear to auscultation, no wheezing or crackles. ABDOMEN: Soft, nontender, nondistended, normoactive bowel sounds. No palpable organomegaly. MUSCULOSKELETAL: No joint swelling or deformity. EXTREMITIES: No cyanosis, clubbing, or pedal edema. NEUROLOGICAL: Gross neurological examination did not reveal any focal deficits. SKIN: No rashes. Assessment Small bowel obstruction Urinary retention secondary to above History of appendectomy Leukocytosis reactive GI prophylaxis Full Code Plan PT scheduled to undergo CT enterography Continue NG tube and bowel rest General surgery consultation Continue indwelling catheter for 1 more day and trial removal tomorrow The impression and plan of care has been dictated by Shannan Jones Nurse Practitioner as directed. Dr. Rosalino MD I have performed a history and physical examination and medical decision making of this patient, discussed the same with the dictator, and agree with the dictators assessment and plan as written, documented as a scribe. Based on total visit time, I have performed more than 50% of this visit. Past Medical History Past Medical History: No Reported History Additional Past Medical History / Comment(s): chronic back pain History of Any Multi-Drug Resistant Organisms: None Reported Past Surgical History: Appendectomy Additional Past Surgical History / Comment(s): Kidney stone Past Anesthesia/Blood Transfusion Reactions: No Reported Reaction Past Psychological History: No Psychological Hx Reported Smoking Status: Never smoker Past Alcohol Use History: None Reported Past Drug Use History: None Reported - Past Family History Mother Family Medical History: No Reported History Father Family Medical History: No Reported History Medications and Allergies Home Medications Medication Instructions Recorded Confirmed Type No Known Home Medications 02/14/23 02/14/23 History Allergies Allergy/AdvReac Type Severity Reaction Status Date / Time No Known Allergies Allergy Verified 02/14/23 17:24 Physical Exam Vitals: Vital Signs Temp Pulse Pulse Resp BP BP Pulse Ox 02/15/23 07:01 98.9 F 71 19 152/80 95 02/15/23 02:00 99.1 F 74 16 123/74 94 L 02/14/23 20:41 77 16 02/14/23 20:00 99.4 F 77 16 134/84 98 02/14/23 17:55 74 18 131/79 99 02/14/23 13:53 98.4 F 85 20 137/80 99 Intake and Output 02/14/23 02/15/23 02/15/23 22:59 06:59 14:59 Intake Total 0 Output Total 1000 Balance -1000 Intake: Oral 0 Output: Gastric Drainage 700 Urine 300 Other: Voiding Method Indwelling Catheter # Bowel Movements 1 Weight 108.862 kg Results CBC & Chem 7: 02/15/23 10:42 02/15/23 10:42 Labs: Abnormal Lab Results - Last 24 Hours (Table) 02/14/23 02/14/23 02/14/23 Range/Units 15:04 15:04 15:04 WBC 11.4 H (3.8-10.6) k/uL Neutrophils # 9.9 H (1.3-7.7) k/uL Lymphocytes # 0.7 L (1.0-4.8) k/uL Sodium 136 L (137-145) mmol/L Chloride 97 L (98-107) mmol/L BUN 23 H (9-20) mg/dL Glucose 109 H (74-99) mg/dL Urine Protein Trace H (Negative) Thrombosis Risk Factor Assmnt - Choose All That Apply Any of the Below Risk Factors Present?: Yes Each Factor Represents 1 point: Age 41-60 years Other Risk Factors: No Thrombosis Risk Factor Assessment Total Risk Factor Score: 1 Thrombosis Risk Factor Assessment Level: Low Risk Assessment and Plan Time with Patient: Less than 30
--- NOTE | 2023-02-15 14:26 | CT ---
EXAMINATION TYPE: CT Enterography CT DLP: 1926.8 mGycm, Automated exposure control for dose reduction was used. DATE OF EXAM: 02/15/2023 2:02 PM CLINICAL INDICATION:Male, 42 years old with history of Bowel obstruction; small bowel obstruction COMPARISON: CT abdomen 02/14/2023 TECHNIQUE: ENTEROGRAPHY PROTOCOL; Multiple thin slice millimeter images were obtained through the abd omen and pelvis following the administration of IV contrast material and Volumen oral contrast. Amee nal reformats were also reconstructed. Contrast used:100 mL of Isovue 370 with IV Contrast, Oral contrast used: with Oral Contrast FINDINGS: LOWER CHEST: No significant findings. ABDOMEN LIVER: Unremarkable GALLBLADDER AND BILE DUCTS: Unremarkable. PANCREAS: Unremarkable. SPLEEN: Unremarkable. ADRENAL GLANDS: Unremarkable. KIDNEYS AND URETERS: No evidence of hydronephrosis or renal calculus. The ureters are unremarkable. PELVIS BLADDER: Nondistended with Castillo catheter in place. REPRODUCTIVE: Unremarkable. ABDOMEN & PELVIS STOMACH AND BOWEL: Nasogastric tube in place. There is wall thickening of the sigmoid colon in the le ft lower quadrant as seen on 02/14/2023 with some submucosal hyperenhancement. A short segment of bowel wall thickening present within the jejunum in the lower mid abdomen slightly left of midline series 7 image 115 with wall thickening present up to 9 mm. There is upstream dilati on of this loop of bowel. Findings appreciated on coronal series 12 image 32. There is multiple dilated loops of proximal jejunum. Transition point not definitively visualized. The terminal ileum is relatively nondistended. There is fluid within the colon. Previously the right lower quadrant small bowel head 02/14/2023 had fluid within multiple dilated loops. Findings suggest p assage of contents into the colon. PERITONEUM/RETROPERITONEUM: No evidence of pneumoperitoneum or free fluid. VASCULATURE: No evidence of aortic aneurysm. MUSCULOSKELETAL: No acute osseous abnormalities LYMPH NODES: No gross evidence for lymphadenopathy. SOFT TISSUE/ABDOMINAL WALL: Unremarkable IMPRESSION Findings suggestive of active inflammation in the sigmoid colon and a loop of jejunum in the mid abdo men wall thickening and upstream dilation suggestive of partial obstruction given there is some fluid transition to the colon from prior exam on one day prior. Correlate for Crohn's.
[2023-02-15] MEDS: methylPREDNISolone SOD SUCCI 40 MG/ML 1 ML VIAL IV SCH (18:54)
[2023-02-15] MEDS: LEVOFLOXACIN 500MG-D5W PMX 500 MG in DEXTROSE/WATER 1 100ML.BAG IVPB SCH (19:31)
[2023-02-16] MEDS: metroNIDAZOLE-NS PMX 500 MG in SALINE 1 100ML.BAG IVPB SCH (00:14)
[2023-02-16 10:58] LABS: Basophils % (A) 0 %; Eosinophils % (A) 0 %; HCT 41.7 % (39.0-53.0); HGB 13.4 gm/dL (13.0-17.5); Lymphocytes # (A) 0.6 k/uL (1.0-4.8); Lymphocytes % (A) 8 %; MCH 26.4 pg (25.0-35.0); MCV 82.5 fL (80.0-100.0); Mean Platelet Volume 6.7; Monocytes # (A) 0.5 k/uL (0-1.0); Monocytes % (A) 6 %; Neutrophils # (A) 6.3 k/uL (1.3-7.7); Neutrophils % (A) 84 %; Platelet Count 313 k/uL (150-450); RBC 5.05 m/uL (4.30-5.90); RDW 12.7 % (11.5-15.5); WBC 7.6 k/uL (3.8-10.6)
--- NOTE | 2023-02-16 11:01 | P.PN ---
Subjective Progress Note Date: 02/16/23 CHIEF COMPLAINT: Abdominal pain HISTORY OF PRESENT ILLNESS: Patient reports that abdominal pain is improving after the initiation of the IV steroids. He did have bowel movements yesterday. He denies any blood in his stools. The abdominal cramping has resolved. Denies any nausea. NG tube with 750 mL bilious output. Afebrile. Labs today pending. CT enterography reports findings suggestive of active inflammation in the sigmoid colon and a loop of jejunum in the mid abdomen wall thickening and upstream dilation suggestive partial obstruction given there is some fluid transition to the colon from prior exam. Correlate for Crohn's. PHYSICAL EXAM: VITAL SIGNS: Reviewed. GENERAL: Well-developed in no acute distress. HEENT: No sclera icterus. Extraocular movements grossly intact. Moist buccal mucosa. Head is atraumatic, normocephalic. ABDOMEN: Soft. Nondistended. Nontender. NEUROLOGIC: Alert and oriented. Cranial nerves II through XII grossly intact. ASSESSMENT: 1. Enteritis involving the loop of the jejunum and sigmoid colon. Etiology unclear but inflammatory bowel disease remains high in the differential. 2. Partial small bowel obstruction PLAN: -Continue IV Solu-Medrol -Continue antibiotics -Continue to monitor -Continue NG tube -Keep patient nothing by mouth -Further recommendations forthcoming per surgeon Physician Transactional Paralegal note has been reviewed by physician. Signing provider agrees with the documented findings, assessment, and plan of care. I have personally seen and examined the patient, reviewed the BARN OPERATOR /PAs history, exam and MDM and agree with the assessment and plan as written. Based on total visit time, I have performed more than 50% of the visit. As above: Patient says he feels much better today. Only mild left-sided pain. No tenderness. Less bloating. He is having bowel function. Nasogastric tube output seems to be decreasing somewhat. Keep nasogastric tube for now. Repeat x-rays tomorrow. Objective - Vital Signs Vital signs: Vital Signs Temp 97.9 F 02/16/23 07:44 Pulse 59 L 02/16/23 07:44 Resp 16 02/16/23 07:44 BP 128/81 02/16/23 07:44 Pulse Ox 97 02/16/23 07:44 FiO2 Intake & Output 02/15/23 02/16/23 02/16/23 18:59 06:59 18:59 Intake Total 1140 Output Total 1000 1300 500 Balance -1000 -160 -500 Intake: Intake, IV Titration 900 Amount Sodium Chloride 0.9% 1, 900 000 ml @ 75 mls/hr IV . [id number] [facility] Rx#:[id number] Oral 240 Output: Gastric Drainage 400 900 Urine 600 400 500 Uretheral (Castillo) 500 Other: Voiding Method Indwelling Catheter Indwelling Catheter Indwelling Catheter # Voids 1 # Bowel Movements 1 - Labs CBC & Chem 7: 02/16/23 10:29 02/15/23 10:42 Labs: Abnormal Lab Results - Last 24 Hours (Table) 02/15/23 02/15/23 Range/Units 10:42 10:42 Neutrophils # 8.7 H (1.3-7.7) k/uL Lymphocytes # 0.4 L (1.0-4.8) k/uL Sodium 136 L (137-145) mmol/L BUN 26 H (9-20) mg/dL Glucose 109 H (74-99) mg/dL
--- NOTE | 2023-02-16 22:53 | P.PN ---
Subjective Progress Note Date: 02/16/23 This is a 42 year old male with no significant medical history. He reports not having a bowel movement for over a week. On Wednesday he began having abdominal pain, lower quadrant coming and going and reported difficulty urinating. He feels bloated. He does report losing some weight also. Vomited once on Wednesday. He has history of appendectomy, no prior bowel obstruction. He denies fever, denies chills. No shortness of breath, no nausea vomiting or diarrhea. He has not had any change in his eating habits, no bloody stools or dark stools. He initially rated his pain about 8 or 9 out of 10 and now pain is about a 7 out of 10 after NG tube has been placed patient had 700 mL bilious output through NG t ube. Computed tomography scan had shown evidence of small bowel obstruction. He does have positive bowel sounds and did have small bowel movement. White count 11.4 on admission, Sodium 136. Urinalsis negative. Indwelling catheter was placed for the retention with 1L of urine removed. Patient is admitted to the hospital with general surgery consultation for the small bowel obstruction. 02/16/2023 Patient evaluated today sitting up in bed. NG tube remains in place with bilious outpatient 350 mls in the last 24 hours. Patient did report having a small bowel movement today and abdominal pain has improved nontender now. CT enterography done showing wall thickening of the sigmoid colon in the left lower quadrant as seen in prior imaging there is submucosal hyperenhancement. Findings suggestive of active inflammation in the sigmoid colon and a loop of jejunumin in the mid abdomen wall and upstream dilation suggestive of partial obstruction given there is some fluid transition of the colon from prior exam on one day earlier. Correlate for Chron's. Patient on IV solumedrol and IV antibiotics. Surgery recommending to keep patient NPO. White blood cell count remains normal. Review of Systems Constitutional: Denied any fatigue denied any fever. Cardio vascular: denied any chest pain, palpitations Gastrointestinal: denied any nausea, vomiting, diarrhea, had small BM mild left sided abdominal pain. Pulmonary: Denied any shortness of breath cough Neurologic denied any new focal deficits All inpatient medications were reviewed and appropriate changes in these medications as dictated in the interval history and assessment and plan. PHYSICAL EXAMINATION: GENERAL: The patient is alert and oriented x3, not in any acute distress. Well developed, well nourished. HEENT: Pupils are round and equally reacting to light. EOMI. No scleral icterus. No conjunctival pallor. Normocephalic, atraumatic. No pharyngeal erythema. No thyromegaly. CARDIOVASCULAR: S1 and S2 present. No murmurs, rubs, or gallops. PULMONARY: Chest is clear to auscultation, no wheezing or crackles. ABDOMEN: Soft, nontender, nondistended, normoactive bowel sounds. No palpable organomegaly. NG tube in place right nare with bilious output. MUSCULOSKELETAL: No joint swelling or deformity. EXTREMITIES: No cyanosis, clubbing, or pedal edema. NEUROLOGICAL: Gross neurological examination did not reveal any focal deficits. SKIN: No rashes. Assessment Partial small bowel obstruction Enteritis rule out Chron's Urinary retention secondary to above History of appendectomy Leukocytosis reactive GI prophylaxis Full Code Plan Continue NG tube and bowel rest Patient NPO except ice chips General surgery consultation recommending following abdominal imaging in the AM. Continue indwelling catheter can complete voiding trial once bowel obstruction resolves. The impression and plan of care has been dictated by Shannan Jones, Nurse Practitioner as directed. Dr. Rosalino MD I have performed a history and physical examination and medical decision making of this patient, discussed the same with the dictator, and agree with the d ictators assessment and plan as written, documented as a scribe. Based on total visit time, I have performed more than 50% of this visit. Objective - Vital Signs Vital signs: Vital Signs Temp 97.4 F L 02/16/23 13:50 Pulse 55 L 02/16/23 13:50 Resp 14 02/16/23 13:50 BP 133/82 02/16/23 13:50 Pulse Ox 95 02/16/23 13:50 FiO2 Intake & Output 02/15/23 02/16/23 02/16/23 18:59 06:59 18:59 Intake Total 1140 Output Total 1000 1300 810 Balance -1000 -160 -810 Intake: Intake, IV Titration 900 Amount Sodium Chloride 0.9% 1, 900 000 ml @ 75 mls/hr IV . [id number] [facility] Rx#:[id number] Oral 240 Output: Gastric Drainage 400 900 Urine 600 400 810 Uretheral (Castillo) 500 Other: Voiding Method Indwelling Catheter Indwelling Catheter Indwelling Catheter # Voids 1 1 # Bowel Movements 1 - Labs CBC & Chem 7: 02/16/23 10:29 02/15/23 10:42 Labs: Abnormal Lab Results - Last 24 Hours (Table) 02/16/23 Range/Units 10:29 Lymphocytes # 0.6 L (1.0-4.8) k/uL Assessment and Plan Time with Patient: Less than 30
--- NOTE | 2023-02-17 09:20 | XR ---
EXAMINATION TYPE: XR abdomen 2V DATE OF EXAM: 02/17/2023 CLINICAL DATA: 42-year-old male abdominal pain, follow-up small bowel obstruction, [facility] COMPARISON: 02/14/2023 FINDINGS: NG tube in place. Lung bases are clear. Small bowel loops dilated up to 7.3 cm. Some air is present within the colon. These loops measure up to 6.1 cm on the patient's 02/15/2023 CT. Suspect small amount of air within the gastric lumen project ing below the left hemidiaphragm. IMPRESSION: Ongoing markedly dilated small bowel loops currently measuring up to 7.3 cm versus 6.1 cm on patient' s recent 02/15/2023 CT.
--- NOTE | 2023-02-17 13:06 | P.PN ---
Subjective Progress Note Date: 02/17/23 CHIEF COMPLAINT: Abdominal pain HISTORY OF PRESENT ILLNESS: Patient continues to feel better. He he rates his pain at a 1 out of 10. He reports having 2 bowel movements. No blood. He describes them as having some mucus and tissue present. He denies any nausea. NG tube with 450 ML output. Abdominal x-ray shows ongoing markedly dilated small bowel loops currently measuring up to 7.3 cm versus 6.1 cm on patient's recent CT. Afebrile PHYSICAL EXAM: VITAL SIGNS: Reviewed. GENERAL: Well-developed in no acute distress. ABDOMEN: Soft. mildly distended. Nontender. NEUROLOGIC: Alert and oriented. Cranial nerves II through XII grossly intact. ASSESSMENT: 1. Enteritis involving the loop of the jejunum and sigmoid colon. Etiology unclear but inflammatory bowel disease remains high in the differential. 2. Partial small bowel obstruction PLAN: -Continue IV Solu-Medrol -Continue antibiotics -Continue to monitor -Continue NG tube for decompression -Keep patient nothing by mouth except ice chips and popsicles -Further recommendations forthcoming per surgeon -Medicine service planning to remove Castillo catheter today. Physician Dry Press Operator Helper note has been reviewed by physician. Signing provider agrees with the documented findings, assessment, and plan of care. I have personally seen and examined the patient, reviewed the PLASMA TABLE OPERATOR /PAs history, exam and MDM and agree with the assessment and plan as written. Based on total visit time, I have performed more than 50% of the visit. As above: Patient feels about the same as yesterday. May be slightly better. 2 bowel movements today. No nausea. Only mild bloating but was worse earlier today. Abdominal x-rays reviewed and reviewed with the patient. Small bowel loops more dilated. Obstruction persists on flat plate. Options reviewed. We'll tentatively proceed with exploratory laparotomy, possible bowel resection, possible ostomy tomorrow. We'll order repeat abdominal x-rays in the morning. Objective - Vital Signs Vital signs: Vital Signs Temp 97.7 F 02/17/23 07:55 Pulse 56 L 02/17/23 07:55 Resp 17 02/17/23 07:55 BP 127/82 02/17/23 07:55 Pulse Ox 94 L 02/17/23 07:55 FiO2 Intake & Output 02/16/23 02/17/23 02/17/23 18:59 06:59 18:59 Intake Total 1035 930 Output Total 1540 1250 Balance -505 -320 Intake: Intake, IV Titration 975 900 Amount Levofloxacin 500Mg-D5w 100 Pmx 500 mg In Dextrose/ Water 1 100ml.bag @ 100 mls/hr IVPB Q24H [facility] Rx#: [id number] Sodium Chloride 0.9% 1, 675 800 000 ml @ 75 mls/hr IV . [id number] [facility] Rx#:[id number] metroNIDAZOLE-NS PMX 500 200 100 mg In Saline 1 100ml.bag @ 100 mls/hr IVPB Q8HR [facility] Rx#:[id number] Oral 60 30 Output: Gastric Drainage 350 450 Urine 1190 800 Uretheral (Castillo) 500 Other: Voiding Method Indwelling Catheter Indwelling Catheter # Voids 1 # Bowel Movements 1 - Labs CBC & Chem 7: 02/16/23 10:29 02/15/23 10:42 Labs: Abnormal Lab Results - Last 24 Hours (Table) 02/16/23 Range/Units 10:29 Lymphocytes # 0.6 L (1.0-4.8) k/uL
[2023-02-17] MEDS: TAMSULOSIN 0.4 MG CAP.ER.24H PO SCH (16:01)
--- NOTE | 2023-02-17 16:05 | P.PN ---
Subjective Progress Note Date: 02/17/23 This is a 42 year old male with no significant medical history. He reports not having a bowel movement for over a week. On Wednesday he began having abdominal pain, lower quadrant coming and going and reported difficulty urinating. He feels bloated. He does report losing some weight also. Vomited once on Wednesday. He has history of appendectomy, no prior bowel obstruction. He denies fever, denies chills. No shortness of breath, no nausea vomiting or diarrhea. He has not had any change in his eating habits, no bloody stools or dark stools. He initially rated his pain about 8 or 9 out of 10 and now pain is about a 7 out of 10 after NG tube has been placed patient had 700 mL bilious output through NG t ube. Computed tomography scan had shown evidence of small bowel obstruction. He does have positive bowel sounds and did have small bowel movement. White count 11.4 on admission, Sodium 136. Urinalsis negative. Indwelling catheter was placed for the retention with 1L of urine removed. Patient is admitted to the hospital with general surgery consultation for the small bowel obstruction. 02/16/2023 Patient evaluated today sitting up in bed. NG tube remains in place with bilious outpatient 350 mls in the last 24 hours. Patient did report having a small bowel movement today and abdominal pain has improved nontender now. CT enterography done showing wall thickening of the sigmoid colon in the left lower quadrant as seen in prior imaging there is submucosal hyperenhancement. Findings suggestive of active inflammation in the sigmoid colon and a loop of jejunumin in the mid abdomen wall and upstream dilation suggestive of partial obstruction given there is some fluid transition of the colon from prior exam on one day earlier. Correlate for Chron's. Patient on IV solumedrol and IV antibiotics. Surgery recommending to keep patient NPO. White blood cell count remains normal. 02/17/2023 Patient evaluated today resting in bed. Had a small BM today, non bloody. Abdominal pain continues to improve. Abdominal xray shows increased dilated small bowel loops. Clinically he is improving. Remains on IV steriods, IV antibiotics. Review of Systems Constitutional: Denied any fatigue denied any fever. Cardio vascular: denied any chest pain, palpitations Gastrointestinal: denied any nausea, vomiting, diarrhea, had small BM mild left sided abdominal pain. Pulmonary: Denied any shortness of breath cough Neurologic denied any new focal deficits All inpatient medications were reviewed and appropriate changes in these medications as dictated in the interval history and assessment and plan. PHYSICAL EXAMINATION: GENERAL: The patient is alert and oriented x3, not in any acute distress. Well developed, well nourished. HEENT: Pupils are round and equally reacting to light. EOMI. No scleral icterus. No conjunctival pallor. Normocephalic, atraumatic. No pharyngeal erythema. No thyromegaly. CARDIOVASCULAR: S1 and S2 present. No murmurs, rubs, or gallops. PULMONARY: Chest is clear to auscultation, no wheezing or crackles. ABDOMEN: Soft, nontender, nondistended, normoactive bowel sounds. No palpable organomegaly. NG tube in place right nare with bilious output. MUSCULOSKELETAL: No joint swelling or deformity. EXTREMITIES: No cyanosis, clubbing, or pedal edema. NEUROLOGICAL: Gross neurological examination did not reveal any focal deficits. SKIN: No rashes. Assessment Partial small bowel obstruction Enteritis rule out Chron's Urinary retention secondary to above History of appendectomy Leukocytosis reactive GI prophylaxis Full Code Plan Continue NG tube and bowel rest Patient NPO except ice chips and popsicles Continue IV fluids Continue IV antibiotics and IV steroids. General surgery consultation Add flomax, remove IDC and check bladder scan Q6h. Increase activity level. The impression and plan of care has been dictated by Shannan Jones, Nurse Practitioner as directed. Dr. Rosalino MD I have performed a history and physical examination and medical decision making of this patient, discussed the same with the dictator, and agree with the dictators assessment and plan as written, documented as a scribe. Based on total visit time, I have performed more than 50% of this visit. Objective - Vital Signs Vital signs: Vital Signs Temp 98.3 F 02/17/23 13:14 Pulse 56 L 02/17/23 13:14 Resp 16 02/17/23 13:14 BP 127/72 02/17/23 13:14 Pulse Ox 98 02/17/23 13:14 FiO2 Intake & Output 02/16/23 02/17/23 02/17/23 18:59 06:59 18:59 Intake Total 1035 930 Output Total 1540 1250 320 Balance -505 -320 -320 Intake: Intake, IV Titration 975 900 Amount Levofloxacin 500Mg-D5w 100 Pmx 500 mg In Dextrose/ Water 1 100ml.bag @ 100 mls/hr IVPB Q24H [facility] Rx#: [id number] Sodium Chloride 0.9% 1, 675 800 000 ml @ 75 mls/hr IV . [id number] [facility] Rx#:[id number] metroNIDAZOLE-NS PMX 500 200 100 mg In Saline 1 100ml.bag @ 100 mls/hr IVPB Q8HR [facility] Rx#:[id number] Oral 60 30 Output: Gastric Drainage 350 450 Urine 1190 800 320 Uretheral (Castillo) 500 300 Other: Voiding Method Indwelling Catheter Indwelling Catheter Indwelling Catheter # Voids 1 # Bowel Movements 1 1 - Labs CBC & Chem 7: 02/16/23 10:29 02/15/23 10:42 Assessment and Plan Time with Patient: Less than 30
--- NOTE | 2023-02-17 18:59 | US ---
EXAMINATION TYPE: US kidneys/renal and bladder DATE OF EXAM: 02/17/2023 COMPARISON: Correlation CT 02/15/2023 CLINICAL INDICATION: Male, 42 years old with history of retention; urinary retention EXAM MEASUREMENTS: Right Kidney: 11.9 x 6.1 x 6.0 cm Left Kidney: 10.9 x 5.8 x 7.1 cm Right Kidney: No hydronephrosis or masses seen Left Kidney: No hydronephrosis or masses seen Bladder: There did appear to be some floating particles in bladder. There is a Castillo catheter. Bladde r incompletely collapsed. Bilateral Jets seen: No IMPRESSION: 1. No hydronephrosis on either side. 2. Castillo catheter is present. Bladder remains distended. Query if the Castillo catheter is clamped off. 3. Some floating debris in the bladder. Correlate with urinalysis to assess for bland versus infectio us debris or blood.
--- NOTE | 2023-02-18 07:36 | XR ---
EXAMINATION TYPE: XR abdomen 2V DATE OF EXAM: 02/18/2023 6:31 AM CLINICAL INDICATION:Male, 42 years old with history of Follow-up SBO; [facility] COMPARISON: CT enterography 02/15/2023. Abdominal radiograph 02/17/2023 TECHNIQUE: Two views of the abdomen were obtained. FINDINGS: Small bowel loops measuring up to 8.1 cm in diameter. There is gaseous dilation of multiple loops of bowel throughout the abdomen. IMPRESSION: Similar, Gaseous dilation of bowel throughout the abdomen with nasogastric tube in place.
[2023-02-18 09:00] LABS: BUN/Creat Ratio 25.56 Ratio (12.00-20.00); Calcium 9.7 mg/dL (8.7-10.3); Carbon Dioxide 25.2 mmol/L (21.6-31.8); Chloride 106 mmol/L (96-109); Glucose 110 mg/dL (70-110); Potassium 4.8 mmol/L (3.5-5.5); Sodium 143 mmol/L (135-145)
[2023-02-18 10:55] LABS: Basophils % (A) 0 %; Eosinophils % (A) 0 %; HCT 39.7 % (39.0-53.0); HGB 12.3 gm/dL (13.0-17.5); Hypochromasia Slight; Lymphocytes # (A) 0.8 k/uL (1.0-4.8); Lymphocytes % (A) 11 %; MCHC 31.1 g/dL (31.0-37.0); MCV 83.8 fL (80.0-100.0); Mean Platelet Volume 6.9; Monocytes # (A) 0.5 k/uL (0-1.0); Monocytes % (A) 6 %; Neutrophils # (A) 5.6 k/uL (1.3-7.7); Neutrophils % (A) 80 %; Platelet Count 334 k/uL (150-450); RBC 4.74 m/uL (4.30-5.90); RDW 12.6 % (11.5-15.5)
[2023-02-18 11:34] LABS: Amorphous Sediment,Urine Rare /hpf; Appearance,Urine Cloudy (Clear); Bacteria,Urine Rare /hpf; Bilirubin,Urine Negative (Negative); Blood,Urine Moderate (Negative); Color,Urine Yellow; Glucose,Urine (UA) Negative (Negative); Ketones,Urine Negative (Negative); Leukocyte Esterase,Urine Trace (Negative); Mucus,Urine Many /hpf; Nitrite,Urine Negative (Negative); Protein,Urine 1+ (Negative); RBC,Urine 75 /hpf (0-5); Specific Gravity,Urine 1.028 (1.001-1.035); Squamous Epithelial Cell,Urine <1 /hpf (0-4); Urobilinogen,Urine <2.0 mg/dL (<2.0); WBC,Urine 9 /hpf (0-5)
--- NOTE | 2023-02-18 15:00 | P.PN ---
Subjective Progress Note Date: 02/18/23 This is a 42 year old male with no significant medical history. He reports not having a bowel movement for over a week. On Wednesday he began having abdominal pain, lower quadrant coming and going and reported difficulty urinating. He feels bloated. He does report losing some weight also. Vomited once on Wednesday. He has history of appendectomy, no prior bowel obstruction. He denies fever, denies chills. No shortness of breath, no nausea vomiting or diarrhea. He has not had any change in his eating habits, no bloody stools or dark stools. He initially rated his pain about 8 or 9 out of 10 and now pain is about a 7 out of 10 after NG tube has been placed patient had 700 mL bilious output through NG t ube. Computed tomography scan had shown evidence of small bowel obstruction. He does have positive bowel sounds and did have small bowel movement. White count 11.4 on admission, Sodium 136. Urinalsis negative. Indwelling catheter was placed for the retention with 1L of urine removed. Patient is admitted to the hospital with general surgery consultation for the small bowel obstruction. 02/16/2023 Patient evaluated today sitting up in bed. NG tube remains in place with bilious outpatient 350 mls in the last 24 hours. Patient did report having a small bowel movement today and abdominal pain has improved nontender now. CT enterography done showing wall thickening of the sigmoid colon in the left lower quadrant as seen in prior imaging there is submucosal hyperenhancement. Findings suggestive of active inflammation in the sigmoid colon and a loop of jejunumin in the mid abdomen wall and upstream dilation suggestive of partial obstruction given there is some fluid transition of the colon from prior exam on one day earlier. Correlate for Chron's. Patient on IV solumedrol and IV antibiotics. Surgery recommending to keep patient NPO. White blood cell count remains normal. 02/17/2023 Patient evaluated today resting in bed. Had a small BM today, non bloody. Abdominal pain continues to improve. Abdominal xray shows increased dilated small bowel loops. Clinically he is improving. Remains on IV steriods, IV antibiotics. 02/18/2023 Patient is evaluated today, he is sitting up. Had a small BM this AM but felt he was not passing stool, he described it as "scar tissue." Did not pass voiding trial, states he had an episode of urinary retention in the past due to an enlarged prostate. IDC was reinserted and pt has been started on flomax. He continues on IV steroids, IV flagyl and IV metronidazole. Abdominal xray today shows similar gasseous distention of bowel throughout the abdomen with nasogastric tube in place. Review of Systems Constitutional: Denied any fatigue denied any fever Cardio vascular: denied any chest pain, palpitations Gastrointestinal: denied any nausea, vomiting, diarrhea, had small BM Pulmonary: Denied any shortness of breath cough Neurologic denied any new focal deficits All inpatient medications were reviewed and appropriate changes in these medic ations as dictated in the interval history and assessment and plan. PHYSICAL EXAMINATION: GENERAL: The patient is alert and oriented x3, not in any acute distress. Well developed, well nourished. HEENT: Pupils are round and equally reacting to light. EOMI. No scleral icterus. No conjunctival pallor. Normocephalic, atraumatic. No pharyngeal erythema. No thyromegaly. CARDIOVASCULAR: S1 and S2 present. No murmurs, rubs, or gallops. PULMONARY: Chest is clear to auscultation, no wheezing or crackles. ABDOMEN: Soft, nontender, nondistended, normoactive bowel sounds. No palpable organomegaly. NG tube in place right nare with bilious output. MUSCULOSKELETAL: No joint swelling or deformity. EXTREMITIES: No cyanosis, clubbing, or pedal edema. NEUROLOGICAL: Gross neurological examination did not reveal any focal deficits. SKIN: No rashes. Assessment Partial small bowel obstruction Enteritis rule out inflammatory bowel disease like Chron's. Urinary retention secondary to above History of appendectomy Leukocytosis reactive GI prophylaxis Full Code Plan Continue NG tube and bowel rest Patient NPO except ice chips and popsicles Continue IV fluids Continue IV antibiotics and IV steroids. General surgery consultation IDC reinserted, continue flomax. The impression and plan of care has been dictated by Shannan Jones, Nurse Practitioner as directed. Dr. Rosalino MD I have performed a history and physical examination and medical decision making of this patient, discussed the same with the dictator, and agree with the dictators assessment and plan as written, documented as a scribe. Based on total visit time, I have performed more than 50% of this visit. Objective - Vital Signs Vital signs: Vital Signs Temp 98.3 F 02/18/23 14:00 Pulse 55 L 02/18/23 14:00 Resp 13 02/18/23 14:00 BP 139/73 02/18/23 14:00 Pulse Ox 98 02/18/23 14:00 FiO2 Intake & Output 02/17/23 02/18/23 02/18/23 18:59 06:59 18:59 Output Total 340 1650 700 Balance -340 -1650 -700 Output: Gastric Drainage 1000 Urine 340 650 700 Uretheral (Castillo) 300 Other: Voiding Method Indwelling Catheter Indwelling Catheter Indwelling Catheter # Voids 1 # Bowel Movements 1 - Labs CBC & Chem 7: 02/18/23 10:31 02/18/23 05:49 Labs: Abnormal Lab Results - Last 24 Hours (Table) 02/18/23 02/18/23 02/18/23 Range/Units 05:49 09:05 10:31 Hgb 12.3 L (13.0-17.5) gm/dL Lymphocytes # 0.8 L (1.0-4.8) k/uL BUN/Creatinine Ratio 25.56 H (12.00-20.00) Ratio Urine Protein 1+ H (Negative) Urine Blood Moderate H (Negative) Ur Leukocyte Esterase Trace H (Negative) Urine RBC 75 H (0-5) /hpf Urine WBC 9 H (0-5) /hpf Urine WBC Clumps Rare H (None) /hpf Amorphous Sediment Rare H (None) /hpf Urine Bacteria Rare H (None) /hpf Urine Mucus Many H (None) /hpf Assessment and Plan Time with Patient: Less than 30
--- NOTE | 2023-02-18 16:09 | P.PN ---
Progress Note - Text Progress Note Date: 02/18/23 Today's x-rays reviewed and demonstrates significant small bowel dilation at 8 cm. Spoke to the patient's by phone earlier this morning. Initially patient's was favoring a continued nonoperative approach. She was hoping that we could try him on a liquid diet to see how he did. I told her that we would wait for today's x-rays and I explained to her that the small bowel dilation had actually increased in the last few days. She was mostly concerned about the possible need for a colostomy since her mother just recently had this and is struggling with this. I told the patient's that I'm concerned that small bowel obstruction is persisting and possibly worsening. I was not in favor of nasogastric tube removal or liquid diet challenge. We discussed that colostomy is felt to be less likely however not completely excluded and would be based on the intraoperative findings. After I explained the small bowel dilation the patient's was in favor of surgery today if small bowel dilation persisted. My nurse practitioner contacted the patient's by phone after the small bowel was measured at 8.1 cm today. We'll proceed with exploratory laparotomy today. Risks of bleeding, infection, scarring, adhesions, persistent obstruction, prolonged ileus, possible need for bowel resection and/or ostomy, hernia, wound formation. The patient and his understand and wish to proceed.
[2023-02-18] MEDS: DEXAMETHASONE SOD PHOSPHATE 4 MG/ML 1 ML VIAL IVP ONE (16:24)
[2023-02-18] MEDS: MIDAZOLAM 2 MG/2 ML VIAL IVP ONE (16:24)
[2023-02-18] MEDS: LACTATED RINGERS 1,000 ML IV ONE ×3 (16:36→18:50)
[2023-02-18] MEDS: IV FLUID CONTINUATION 400 ML IV ONE (16:36)
[2023-02-18] MEDS ORDERED: NALOXONE 0.4 MG/ML 1 ML VIAL IV PRN (16:40)
--- NOTE | 2023-02-18 16:44 | P.ANPRN ---
Procedure Note - Anesthesia - Epidural/Spinal Epidural Continuous Time Out Performed: Yes Date of Procedure: 02/18/23 Procedure Start Time: 16:24 Procedure Stop Time: 16:30 Location of Patient: PreOp Indication: Acute Post-Operative Pain, Requested by Surgeon Sedation Type: Sedate with meaningful contact maintained Preparation: Sterile Dressing Position: Sitting Catheter: Indwelling Needle Guage: 18 Blood Aspirated: No Pain Paresthesia on Injection Noted: No Events: Uneventful and Well Tolerated (xylo 1.5% plus epi 3cc given as a test dose via the epidural , no adverse effects noted)
[2023-02-18] MEDS ORDERED: HEPARIN SODIUM,PORCINE/PF 5,000 UNIT/0.5 ML SYRINGE SQ ONE (16:57)
[2023-02-18] MEDS ORDERED: KETAMINE HCL IN 0.9 % NACL 50 MG/5 ML SYRINGE ONE (17:40)
[2023-02-18] MEDS ORDERED: LIDOCAINE 1% INJ 10MG/ML (20 ML MDV) ONE (17:40)
[2023-02-18] MEDS ORDERED: HEPARIN SODIUM,PORCINE 5,000 UNIT/ML 1 ML VIAL ONE (17:40)
[2023-02-18] MEDS ORDERED: PROPOFOL 10 MG/ML 20 ML VIAL IV ONE (17:40)
[2023-02-18] MEDS ORDERED: GLYCOPYRROLATE 0.2 MG/ML 2 ML VIAL ONE (17:40)
[2023-02-18] MEDS ORDERED: NEOSTIGMINE 1 MG/ML 10 ML VIAL ONE (17:40)
[2023-02-18] MEDS ORDERED: MIDAZOLAM 2 MG/2 ML VIAL ONE (17:40)
[2023-02-18] MEDS ORDERED: ROCURONIUM 10 MG/ML (5 ML VIAL) IV ONE (17:40)
[2023-02-18] MEDS ORDERED: fentaNYL (PF) 50 MCG/ML 2 ML AMP ONE (17:40)
[2023-02-18] MEDS ORDERED: HYDROmorphone (PF) 1 MG/ML ONE (17:40)
[2023-02-18] MEDS ORDERED: SUCCINYLCHOLINE CHLORIDE 200 MG/10 ML VIAL IV ONE (17:40)
--- NOTE | 2023-02-18 20:24 | P.ANPRN ---
Procedure Note - Anesthesia - Invasive Line Right Central Line Time Out Performed: Yes Date of Procedure: 02/18/23 Time of Procedure: 17:39 Location of Patient: PreOp Preparation: Sterile Prep, Sterile Dressing Central Line Location: Internal Jugular Ultrasound Used: No Purpose - Visualization and Identification of Vasculature: No Image Stored and Saved: No Narrative: Central line placement per sterile protocol utilized.
[2023-02-18] MEDS: ROPIVACAINE 250 MG, HYDROMORPHONE (PF) 5 MG in SODIUM CHLORIDE 0.9% 200 ML EPIDURAL PRN (20:27)
--- NOTE | 2023-02-18 20:40 | P.OP ---
Date of Procedure: 02/18/23 Procedure(s) Performed: PREOPERATIVE DIAGNOSIS: Small bowel obstruction POSTOPERATIVE DIAGNOSIS: Small bowel obstruction secondary to abdominal adhesion, sigmoid colon mass with suspected perforation PROCEDURE: Exporter laparotomy, sigmoid colectomy, small bowel resection SURGEON: Poncho EBL: 50 mL ANESTHESIA: General COMPLICATIONS: None OPERATIVE PROCEDURE: Preoperatively a central line was placed by anesthesia. GERD had a Castillo catheter from the floor. Patient was placed on the operative table in the supine position. The patient was then placed under general anesthesia. The abdomen was prepped and draped in usual sterile fashion. A vertical incision was made extending from the supraumbilical location to the lower abdomen. The fascia was divided as well. The Bookwalter retractor was utilized. Inspection of the abdominal contents revealed markedly dilated small bowel loops proximally. The bowel was viable. As we followed the bowel distally to the site of obstruction this was present as a loop of the distal jejunum was adherent to the sigmoid colon. There was an odor and some cloudy fluid in the abdominal cavity. Cultures were taken. Inspection of the sigmoid colon revealed a mobile mass like area possibly representing neoplasm or diverticulitis. There appeared to be a depression in the mesenteric side of the palpable lesion that was likely the source of perforation. The patient was consented for colostomy however both he and his were very against colostomy if he could be at all avoided. I broke scrub at that time and went out to discuss the case with the patient's . The patient's colon proximal and distal to the palpable area appeared free of inflammatory change or stool. We decided to proceed with sigmoid resection. Descending colon was mobilized up to the region of the splenic flexure. The patient had a redundant sigmoid and no formal mobilization of the actual splenic actual was required. A small colotomy was made distal to the palpable lesion. A 29 EEA anvil was advanced into the sigmoid colon and milked to the distal sigmoid colon. The bowel was then divided at the distal sigmoid colon using a linear 75 stapler. The anvil was brought out adjacent to the staple line and a 3-0 GI silk pursestring was placed. Following that a colotomy was made proximal to the masslike area. I then placed the 29 EEA stapler into the lumen of the colon and a end to side anastomosis took place between the proximal sigmoid/distal descending colon and the distal sigmoid colon. The obturator of the stapler was brought out on the antimesenteric border and this was connected to the anvil. The stapler was then subsequently tightened and fired. No twisting of the bowel was noted. 3-0 GI silk stay sutures were placed on either side of our new anastomosis. Both colotomies had been closed using running locking 0 Vicryl sutures. The mesentery was then dissected down to the level of the YOLANDA and divided using a combination of both LigaSure and 0 silk ties. The specimen was then passed off. I decided to remove the portion of the jejunum that had been adherent to this area or there was some induration here and I was concerned that if this did t rail turner to be malignant there could be some cancerous tissue present here. The bowel was divided proximal and distal using a linear 75 stapler. Green load was utilized proximally given the thickening of the bowel wall. The mesentery was divided using LigaSure. A [id number]-[id number] anastomosis took place after removing the antimesenteric portion of the staple line. A linear 75 stapler was fired along the antimesenteric border and this was then closed using a TX 60 device. The TX 60 stapler line was imbricated using interrupted 3-0 GI silk sutures. The abdomen was then thoroughly irrigated with 3-4 L of saline. Inspection of the remainder of the cavity only revealed what appeared represent a probable hemangioma involving the left lobe liver just medial to the falciform ligament. The midline fascia was then reapproximated using 2 separate double-stranded #1 PDS sutures. The subcutaneous tissues were closed using 3-0 Vicryl sutures. The skin was then closed using maria isabel. Sterile dressings were then applied. DISPOSITION: Stable to recovery room
[2023-02-18] MEDS: SODIUM CHLORIDE 0.9% 1,000 ML IV ONE (21:06)
--- NOTE | 2023-02-18 21:13 | XR ---
EXAMINATION: XR chest 1V confirm line [facility] DATE AND TIME: 02/18/2023 8:57 PM CLINICAL INDICATION: PHH; Check line TECHNIQUE: Departmental protocol COMPARISON: None FINDINGS: Right IJ catheter tip superimposed over the expected position of the distal SVC. NG tube courses over the expected course of the esophagus and the NG tube port lies over the expected position of the gastric cardia and the NG tube tip projects inferior to the inferior edge of this ra diograph, likely within the body of the stomach. Because a port is at the gastric cardia, the NG tube may be better placed if advanced 5 cm distally. EKG leads. There is mild silhouetting of the pulmonary vasculature bilaterally and symmetrically bilateral diffu se fine reticular interstitial pattern, which can correlate with a clinical diagnosis of mild interst itial phase pulmonary edema. There is no pneumothorax or evidence of pleural effusion. Cardiomediastinal silhouette unremarkable. No acute skeletal or soft tissue findings. IMPRESSION: Line placement CXR.
[2023-02-18] MEDS: fentaNYL (PF) 50 MCG/ML 2 ML AMP IVP ONE (21:15)
[2023-02-18] MEDS: ACETAMINOPHEN IV (For NPO) 1,000 MG/100 ML VIAL IVPB ONE (21:30)
[2023-02-19] MEDS: PIPERACILLIN-TAZOBACTAM 3.375 GM in SODIUM CHLORIDE 0.9% 100 ML IVPB SCH (01:48)
[2023-02-19] MEDS: HYDROmorphone 1 MG/ML 1 ML SYRINGE IVP PRN (05:40)
[2023-02-19] MEDS: ACETAMINOPHEN IV (For NPO) 1,000 MG in EMPTY BAG 1 BAG IVPB SCH (06:16)
--- NOTE | 2023-02-19 08:20 | P.GSCN ---
History of Present Illness Consult date: 02/19/23 Reason for Consult: Urinary retention Requesting physician: Jaugar Isaac History of present illness: The patient is a 42-year-old male admitted with abdominal pain, constipation, and difficulty voiding. At the time of admission, he underwent Castillo catheter insertion with return of 1 L of urine. He was found to have a small bowel obstruction and failed conservative therapy. He underwent exploratory laparotomy yesterday evening and was found to have a sigmoid mass. He underwent sigmoid colon resection as well as small bowel resection. The patient's urologic history is significant for a kidney stone, which he passed and approximately 2009. He states that he had a UTI and urinary retention several years ago. Review of Systems - Gastrointestinal Reports abdominal pain, Reports constipation - Genitourinary Reports urinary retention Past Medical History Past Medical History: No Reported History Additional Past Medical History / Comment(s): chronic back pain History of Any Multi-Drug Resistant Organisms: None Reported Past Surgical History: Appendectomy Additional Past Surgical History / Comment(s): Kidney stone Past Anesthesia/Blood Transfusion Reactions: No Reported Reaction Past Psychological History: No Psychological Hx Reported Smoking Status: Never smoker Past Alcohol Use History: None Reported Past Drug Use History: None Reported - Past Family History Mother Family Medical History: No Reported History Father Family Medical History: No Reported History Medications and Allergies Home Medications Medication Instructions Recorded Confirmed Type No Known Home Medications 02/14/23 02/14/23 History Allergies Allergy/AdvReac Type Severity Reaction Status Date / Time No Known Allergies Allergy Verified 02/14/23 17:24 Surgical - Exam Vital Signs Temp Pulse Resp BP Pulse Ox 98.4 F 85 20 137/80 99 02/14/23 13:53 02/14/23 13:53 02/14/23 13:53 02/14/23 13:53 02/14/23 13:53 - General well developed, well nourished, no distress - Respiratory normal respiratory effort - Abdomen Soft, non-distended. Midline dressing intact. - Genitourinary normal penis with no external lesions, testicles non-tender - Psychiatric oriented to time, oriented to person, oriented to place, speech is normal, memory intact Results - Labs 02/18/23 10:31 02/18/23 05:49 Abnormal Lab Results - Last 24 Hours (Table) 02/18/23 02/18/23 02/18/23 Range/Units 05:49 09:05 10:31 Hgb 12.3 L (13.0-17.5) gm/dL Lymphocytes # 0.8 L (1.0-4.8) k/uL BUN/Creatinine Ratio 25.56 H (12.00-20.00) Ratio Urine Protein 1+ H (Negative) Urine Blood Moderate H (Negative) Ur Leukocyte Esterase Trace H (Negative) Urine RBC 75 H (0-5) /hpf Urine WBC 9 H (0-5) /hpf Urine WBC Clumps Rare H (None) /hpf Amorphous Sediment Rare H (None) /hpf Urine Bacteria Rare H (None) /hpf Urine Mucus Many H (None) /hpf Diabetes panel 02/18/23 Range/Units 05:49 Sodium 143 (135-145) mmol/L Potassium 4.8 (3.5-5.5) mmol/L Chloride 106 (96-109) mmol/L Carbon Dioxide 25.2 (21.6-31.8) mmol/L BUN 23.0 (9.0-27.0) mg/dL Creatinine 0.9 (0.6-1.5) mg/dL Glucose 110 (70-110) mg/dL Calcium 9.7 (8.7-10.3) mg/dL Calcium panel 02/18/23 Range/Units 05:49 Calcium 9.7 (8.7-10.3) mg/dL Pituitary panel 02/18/23 Range/Units 05:49 Sodium 143 (135-145) mmol/L Potassium 4.8 (3.5-5.5) mmol/L Chloride 106 (96-109) mmol/L Carbon Dioxide 25.2 (21.6-31.8) mmol/L BUN 23.0 (9.0-27.0) mg/dL Creatinine 0.9 (0.6-1.5) mg/dL Glucose 110 (70-110) mg/dL Calcium 9.7 (8.7-10.3) mg/dL Adrenal panel 02/18/23 Range/Units 05:49 Sodium 143 (135-145) mmol/L Potassium 4.8 (3.5-5.5) mmol/L Chloride 106 (96-109) mmol/L Carbon Dioxide 25.2 (21.6-31.8) mmol/L BUN 23.0 (9.0-27.0) mg/dL Creatinine 0.9 (0.6-1.5) mg/dL Glucose 110 (70-110) mg/dL Calcium 9.7 (8.7-10.3) mg/dL - Imaging CT scan - abdomen: report reviewed, image reviewed Assessment and Plan (1) Urinary retention Current Visit: Yes Status: Acute Code(s): R33.9 - RETENTION OF URINE, UNSPECIFIED SNOMED Code(s): 608080277 Plan: The Castillo catheter is currently draining clear yellow urine. The patient has been started on tamsulosin. In several days, as patient's condition improves and he is ambulatory, I would suggested the Castillo catheter be removed for a voiding trial. Bladder scan should be checked to ensure adequate bladder emptying. Time with Patient: Greater than 30
[2023-02-19] MEDS: methylPREDNISolone SOD SUCCI 40 MG/ML 1 ML VIAL IV SCH (08:35)
[2023-02-19 09:05] LABS: BUN/Creat Ratio 23.33 Ratio (12.00-20.00); Calcium 9.3 mg/dL (8.7-10.3); Chloride 104 mmol/L (96-109); Glucose 103 mg/dL (70-110); Potassium 4.6 mmol/L (3.5-5.5); Sodium 140 mmol/L (135-145)
[2023-02-19] MEDS: HEPARIN SODIUM,PORCINE 5,000 UNIT/ML 1 ML VIAL SQ SCH (09:40)
[2023-02-19 09:49] LABS: Basophils # (A) 0.02 X 10*3/uL (0.00-0.10); Basophils % (A) 0.2 %; Eosinophils # (A) 0.01 X 10*3/uL (0.04-0.35); Eosinophils % (A) 0.1 %; HGB 13.6 g/dL (13.0-17.0); Lymphocytes # (A) 0.86 X 10*3/uL (0.90-5.00); Lymphocytes % (A) 6.7 %; MCH 25.4 pg (27.0-32.0); MCHC 30.2 g/dL (32.0-37.0); Mean Platelet Volume 9.6 FL (9.5-12.2); Monocytes # (A) 0.81 X 10*3/uL (0.20-1.00); Monocytes % (A) 6.3 %; NRBC Per 100 WBC 0 X 10*3/uL (0.00-0.01); Neutrophils # (A) 11.01 X 10*3/uL (1.80-7.70); Neutrophils % (A) 86.3 %; Platelet Count 419 X 10*3/uL (140-440); RBC 5.36 X 10*6/uL (4.40-5.60); RDW 13.3 % (11.5-14.5); WBC 12.76 X 10*3/uL (4.50-10.00)
--- NOTE | 2023-02-19 11:54 | P.PN ---
Progress Note - Text 02/19/23 622am 42-year-old male status post exploratory lap by Dr. Isaac. Patient seen and evaluated for postop pain control, patient has an epidural running at 10 mL an hour with a VAS of 2 with no motor or sensory deficit noted. Plan to continue epidural infusion
--- NOTE | 2023-02-19 12:32 | P.PN ---
Subjective Progress Note Date: 02/19/23 CHIEF COMPLAINT: Abdominal pain HISTORY OF PRESENT ILLNESS: Patient is postop day #1 status post exploratory laparotomy, sigmoid colectomy and small bowel resection for small bowel obstruction secondary to abdominal adhesion sigmoid colon mass with suspected perforation. Patient has epidural in place. He reports his pain is controlled. He denies any nausea. Has NG tube in place with 100 mL output. Afebrile. WBC 12.76 Hgb 13.6 platelets 419 sodium 140 potassium 4.6 creatinine 0.9. Patient seen by urology for urinary retention. PHYSICAL EXAM: VITAL SIGNS: Reviewed. GENERAL: Well-developed in no acute distress. ABDOMEN: Soft. distended. Incisional dressing clean, dry and intact NEUROLOGIC: Alert and oriented. Cranial nerves II through XII grossly intact. ASSESSMENT: 1. Small bowel obstruction secondary to abdominal adhesion, sigmoid colon mass with suspected perforation status post exploratory laparotomy, sigmoid colectomy and small bowel resection PLAN: -Continue NG tube -Keep patient nothing by mouth except as chips and popsicles -Continue epidural for pain management -Continue Castillo catheter -Continue IV Solu-Medrol -Continue antibiotics -Continue to monitor -Continue NG tube for decompression -Encourage patient to use incentive spirometer -DVT prophylaxis subcu heparin and GI prophylaxis Pepcid Physician Press Clipper note has been reviewed by physician. Signing provider agrees with the documented findings, assessment, and plan of care. I have personally seen and examined the patient, reviewed the BUSINESS TEST ANALYST /PAs history, exam and MDM and agree with the assessment and plan as written. Based on total visit time, I have performed more than 50% of the visit. As above: Patient doing well today. Pain is well-controlled. No bowel function yet. Mild tenderness on exam. Incision clean and dry. Continue gastric decompression. Increase activity. Plan removal of Castillo catheter and epidural on Wednesday or Wednesday. Objective - Vital Signs Vital signs: Vital Signs Temp 98.5 F 02/19/23 07:20 Pulse 60 02/19/23 07:20 Resp 17 02/19/23 07:20 BP 127/82 02/19/23 07:20 Pulse Ox 97 02/19/23 07:20 FiO2 Intake & Output 02/18/23 02/19/23 02/19/23 18:59 06:59 18:59 Intake Total 1950 175.067 Output Total 1100 900 Balance 850 -724.933 Intake: IV 1950 150 Intake, IV Titration 25.067 Amount Ropivacaine 250 mg 25.067 Hydromorphone (Pf) 5 mg In Sodium Chloride 0.9% 200 ml @ Per Protocol EPIDURAL .Q0M PRN Rx#: [id number] Oral 0 Output: Gastric Drainage 200 100 Urine 900 750 Coude 550 Estimated Blood Loss 50 Other: Voiding Method Indwelling Catheter Indwelling Catheter - Labs CBC & Chem 7: 02/19/23 05:17 02/19/23 05:17 Labs: Abnormal Lab Results - Last 24 Hours (Table) 02/18/23 02/18/23 02/19/23 Range/Units 09:05 10:31 05:17 WBC 12.76 H (4.50-10.00) X 10*3/uL Hgb 12.3 L (13.0-17.5) gm/dL MCH 25.4 L (27.0-32.0) pg MCHC 30.2 L (32.0-37.0) g/dL Neutrophils # 11.01 H (1.80-7.70) X 10*3/uL Lymphocytes # 0.8 L 0.86 L (1.0-4.8) k/uL Eosinophils # 0.01 L (0.04-0.35) X 10*3/uL BUN/Creatinine Ratio (12.00-20.00) Ratio Urine Protein 1+ H (Negative) Urine Blood Moderate H (Negative) Ur Leukocyte Esterase Trace H (Negative) Urine RBC 75 H (0-5) /hpf Urine WBC 9 H (0-5) /hpf Urine WBC Clumps Rare H (None) /hpf Amorphous Sediment Rare H (None) /hpf Urine Bacteria Rare H (None) /hpf Urine Mucus Many H (None) /hpf 02/19/23 Range/Units 05:17 WBC (4.50-10.00) X 10*3/uL Hgb (13.0-17.5) gm/dL MCH (27.0-32.0) pg MCHC (32.0-37.0) g/dL Neutrophils # (1.80-7.70) X 10*3/uL Lymphocytes # (1.0-4.8) k/uL Eosinophils # (0.04-0.35) X 10*3/uL BUN/Creatinine Ratio 23.33 H (12.00-20.00) Ratio Urine Protein (Negative) Urine Blood (Negative) Ur Leukocyte Esterase (Negative) Urine RBC (0-5) /hpf Urine WBC (0-5) /hpf Urine WBC Clumps (None) /hpf Amorphous Sediment (None) /hpf Urine Bacteria (None) /hpf Urine Mucus (None) /hpf
--- NOTE | 2023-02-19 13:09 | P.PN ---
Subjective This is a 42 year old male with no significant medical history. He reports not having a bowel movement for over a week. On Wednesday he began having abdominal pain, lower quadrant coming and going and reported difficulty urinating. He feels bloated. He does report losing some weight also. Vomited once on Wednesday. He has history of appendectomy, no prior bowel obstruction. He denies fever, denies chills. No shortness of breath, no nausea vomiting or diarrhea. He has not had any change in his eating habits, no bloody stools or dark stools. He i nitially rated his pain about 8 or 9 out of 10 and now pain is about a 7 out of 10 after NG tube has been placed patient had 700 mL bilious output through NG tube. Computed tomography scan had shown evidence of small bowel obstruction. He does have positive bowel sounds and did have small bowel movement. White count 11.4 on admission, Sodium 136. Urinalsis negative. Indwelling catheter was placed for the retention with 1L of urine removed. Patient is admitted to the hospital with general surgery consultation for the small bowel obstruction. 02/16/2023 Patient evaluated today sitting up in bed. NG tube remains in place with bilious outpatient 350 mls in the last 24 hours. Patient did report having a small bowel movement today and abdominal pain has improved nontender now. CT enterography done showing wall thickening of the sigmoid colon in the left lower quadrant as seen in prior imaging there is submucosal hyperenhancement. Findings suggestive of active inflammation in the sigmoid colon and a loop of jejunumin in the mid abdomen wall and upstream dilation suggestive of partial obstruction given there is some fluid transition of the colon from prior exam on one day earlier. Corre late for Chron's. Patient on IV solumedrol and IV antibiotics. Surgery recommending to keep patient NPO. White blood cell count remains normal. 02/17/2023 Patient evaluated today resting in bed. Had a small BM today, non bloody. Abdominal pain continues to improve. Abdominal xray shows increased dilated small bowel loops. Clinically he is improving. Remains on IV steriods, IV antibiotics. 02/18/2023 Patient is evaluated today, he is sitting up. Had a small BM this AM but felt he was not passing stool, he described it as "scar tissue." Did not pass voiding trial, states he had an episode of urinary retention in the past due to an enlarged prostate. IDC was reinserted and pt has been started on flomax. He continues on IV steroids, IV flagyl and IV metronidazole. Abdominal xray today shows similar gasseous distention of bowel throughout the abdomen with nasogastric tube in place. 02/19/2023 This is a pleasant 42 years old male who presents with small bowel obstruction secondary to abdominal adhesions with sigmoid mass with possible perforation, status post exploratory laparotomy, sigmoid colectomy and small bowel resection. Today is postoperative day #1. Comfortable fully awake and oriented, abdominal pain this morning is 04/21. NG tube in place. No other new complaints no chest pain or dyspnea. His vitals stable. Has mild leukocytosis of 12.7 K. Currently covered with Zosyn normal saline 125 mL per hour Objective - Vital Signs Vital signs: Vital Signs Temp 98.1 F 02/19/23 11:40 Pulse 71 02/19/23 11:40 Resp 16 02/19/23 11:40 BP 112/71 02/19/23 11:40 Pulse Ox 97 02/19/23 11:40 FiO2 Intake & Output 02/18/23 02/19/23 02/19/23 18:59 06:59 18:59 Intake Total 1950 175.067 Output Total 1100 900 Balance 850 -724.933 Intake: IV 1950 150 Intake, IV Titration 25.067 Amount Ropivacaine 250 mg 25.067 Hydromorphone (Pf) 5 mg In Sodium Chloride 0.9% 200 ml @ Per Protocol EPIDURAL .Q0M PRN Rx#: [id number] Oral 0 Output: Gastric Drainage 200 100 Urine 900 750 Coude 550 Estimated Blood Loss 50 Other: Voiding Method Indwelling Catheter Indwelling Catheter - Exam GENERAL: The patient is alert and oriented x3, not in any acute distress. Well developed, well nourished. HEENT: Pupils are round and equally reacting to light. EOMI. No scleral icterus. No conjunctival pallor. Normocephalic, atraumatic. No pharyngeal erythema. No thyromegaly. CARDIOVASCULAR: S1 and S2 present. No murmurs, rubs, or gallops. PULMONARY: Chest is clear to auscultation, no wheezing , no crackles. -ABDOMEN: Soft, nontender, nondistended, normoactive bowel sounds. No palpable organomegaly. Surgical wound with dressing in place rest of exam was deferred to surgery team MUSCULOSKELETAL: No joint swelling or deformity. EXTREMITIES: No cyanosis, clubbing, or pedal edema. NEUROLOGICAL: Gross neurological examination did not reveal any focal deficits. SKIN: No rashes. no petechiae. - Labs CBC & Chem 7: 02/19/23 05:17 02/19/23 05:17 Labs: Abnormal Lab Results - Last 24 Hours (Table) 02/19/23 02/19/23 Range/Units 05:17 05:17 WBC 12.76 H (4.50-10.00) X 10*3/uL MCH 25.4 L (27.0-32.0) pg MCHC 30.2 L (32.0-37.0) g/dL Neutrophils # 11.01 H (1.80-7.70) X 10*3/uL Lymphocytes # 0.86 L (0.90-5.00) X 10*3/uL Eosinophils # 0.01 L (0.04-0.35) X 10*3/uL BUN/Creatinine Ratio 23.33 H (12.00-20.00) Ratio Assessment and Plan Assessment: Partial small bowel obstruction secondary to adhesions with sigmoid mass with possible perforation status post sigmoid colectomy and small bowel resection on 02/18 Possible intra-abdominal infection Urinary retention secondary to above History of appendectomy Plan: Continue with Zosyn Continue with normal saline Pain management Surgical team consult Urologist on the case. ID team consult. Labs and medication were reviewed.. Continue same treatment. Continue with symptomatic treatment. Resume home medication. Monitor labs and vitals. DVT and GI prophylaxis. Further recommendations as per clinical course of the patient DVT prophylaxis: Subcutaneous heparin GI Prophylaxis: Pepcid Prognosis is guarded
[2023-02-19 13:41] VITALS: BMI 29.2
[2023-02-19 13:44] LABS: Magnesium 2.1 mg/dL (1.6-2.3); Phosphorus 4.5 mg/dL (2.5-4.5)
[2023-02-19] MEDS: FAT EMULSION 20% 250 ML in EMPTY BAG 1 BAG IV SCH (15:04)
[2023-02-19] MEDS: MVI, ADULT NO.4 WITH VIT K 10 ML, TRACE (CONC-1ML/DOSE) 1 ML in AMINO ACID 5%-D20W+LYTE... IV SCH (15:04)
--- NOTE | 2023-02-20 06:40 | P.CONS ---
History of Present Illness - Reason for Consult Consult date: 02/19/23 Suspected colon perforation Requesting physician: Jaguar Isaac - Chief Complaint Abdominal pain x few days - History of Present Illness patient is a 42-year-old male with a past medical history significant for chronic back pain history of appendectomy presenting to the hospital 5 days ago for evaluation of abdominal pain symptom has been going on for few days before presentation to the hospital patient describes the pain to be more of a colicky sharp pain intensity moderate to severe with some persistent nausea but no vomiting did have some constipation patient was evaluated by internal medicine and general surgery services initially treated him medically patient did not have any improvement in his symptomatology the patient was taken to the OR last night patient is status post exploratory laparotomy sigmoid colectomy as there was suspected sigmoid colon mass with suspected perforation, infectious disease was consulted for management of antibiotic therapy, I was able to adjust his antibiotic to Zosyn last evening pending evaluation this morning. At the time my evaluation this morning the patient is afebrile patient is breathing comfortably on room air patient denies having any headache or URI symptoms no chest pain shortness of breath or cough patient abdominal pain has decreased in intensity mostly dull aching to sharp moderate intensity without any radiation denies any nausea vomiting denies any bowel movement. Patient did have vital of 12.76 with a left shift creatinine 0.9 cultures are currently pending Review of Systems Positive point and negatives has been mentioned in the HPI, complete review of systems was performed and all other systems are negative Past Medical History Past Medical History: No Reported History Additional Past Medical History / Comment(s): chronic back pain History of Any Multi-Drug Resistant Organisms: None Reported Past Surgical History: Appendectomy Additional Past Surgical History / Comment(s): Kidney stone Past Anesthesia/Blood Transfusion Reactions: No Reported Reaction Past Psychological History: No Psychological Hx Reported Smoking Status: Never smoker Past Alcohol Use History: None Reported Past Drug Use History: None Reported - Past Family History Mother Family Medical History: No Reported History Father Family Medical History: No Reported History Medications and Allergies Home Medications Medication Instructions Recorded Confirmed Type Acetaminophen Tab [Tylenol Tab] 650 mg PO Q4H PRN #30 tablet 03/03/23 Rx Amoxic-Pot Clav 875-125Mg 1 tab PO Q12HR 7 Days #14 tab 03/03/23 Rx [Augmentin 875-125] Pantoprazole Sodium [Protonix] 40 mg PO DAILY 30 Days #30 tab 03/03/23 Rx Tamsulosin [Flomax] 0.4 mg PO BID 30 Days #60 cap 03/03/23 Rx traMADol HCl [Ultram] 50 mg PO Q6HR PRN 3 Days #12 tab 03/03/23 Rx Allergies Allergy/AdvReac Type Severity Reaction Status Date / Time No Known Allergies Allergy Verified 02/14/23 17:24 Physical Exam Vitals: Vital Signs Temp Pulse Pulse Resp BP Pulse Ox 02/19/23 07:20 98.5 F 60 17 127/82 97 02/19/23 02:23 97.9 F 50 L 16 147/88 99 02/19/23 01:47 61 156/107 100 02/19/23 00:47 53 L 134/82 98 02/19/23 00:17 51 L 135/81 97 02/18/23 23:47 58 L 145/81 96 02/18/23 23:32 63 157/89 96 02/18/23 23:17 53 L 137/76 98 02/18/23 23:02 55 L 142/80 97 02/18/23 22:50 98.6 F 59 L 17 145/78 96 02/18/23 22:10 75 18 141/65 93 L 02/18/23 21:53 76 17 146/70 92 L 02/18/23 21:37 57 L 20 149/72 93 L 02/18/23 21:29 65 24 150/71 96 02/18/23 21:15 62 15 152/80 96 02/18/23 20:59 61 14 148/80 98 02/18/23 20:55 57 L 57 L 15 148/80 98 02/18/23 20:42 61 14 155/76 99 02/18/23 20:27 99.0 F 71 14 144/73 98 02/18/23 17:40 67 16 136/69 96 02/18/23 16:40 67 16 126/62 99 02/18/23 16:26 98.6 F 62 16 142/67 99 02/18/23 14:00 98.3 F 55 L 13 139/73 98 02/18/23 12:11 97.6 F 47 L 16 134/77 99 Intake and Output 02/18/23 02/19/23 02/19/23 22:59 06:59 14:59 Intake Total 2100 25.067 Output Total 650 650 Balance 1450 -624.933 Intake: IV 2100 Intake, IV Titration 25.067 Amount Ropivacaine 250 mg 25.067 Hydromorphone (Pf) 5 mg In Sodium Chloride 0.9% 200 ml @ Per Protocol EPIDURAL .Q0M PRN Rx#: [id number] Oral 0 Output: Gastric Drainage 200 100 Urine 400 550 Coude 550 Estimated Blood Loss 50 Other: Voiding Method Indwelling Catheter GENERAL DESCRIPTION: Middle-aged male lying in bed, no distress. No tachypnea or accessory muscle of respiration use. HEENT: Shows Pallor , no scleral icterus. Oral mucous membrane is dry. No pharyngeal erythema or thrush NECK: Trachea central, no thyromegaly. LUNGS: Unlabored breathing. Clear to auscultation anteriorly. No wheeze or crackle. HEART: S1, S2, regular rate and rhythm. No loud murmur ABDOMEN: Soft, mild tenderness EXTREMITIES: No edema of feet. SKIN: No rash, no masses palpable. NEUROLOGICAL: The patient is awake, alert, oriented x3, mood and affect normal. Results CBC & Chem 7: 03/03/23 05:43 03/03/23 05:43 Labs: Abnormal Lab Results - Last 24 Hours (Table) 02/18/23 02/18/23 02/19/23 Range/Units 09:05 10:31 05:17 WBC 12.76 H (4.50-10.00) X 10*3/uL Hgb 12.3 L (13.0-17.5) gm/dL MCH 25.4 L (27.0-32.0) pg MCHC 30.2 L (32.0-37.0) g/dL Neutrophils # 11.01 H (1.80-7.70) X 10*3/uL Lymphocytes # 0.8 L 0.86 L (1.0-4.8) k/uL Eosinophils # 0.01 L (0.04-0.35) X 10*3/uL BUN/Creatinine Ratio (12.00-20.00) Ratio Urine Protein 1+ H (Negative) Urine Blood Moderate H (Negative) Ur Leukocyte Esterase Trace H (Negative) Urine RBC 75 H (0-5) /hpf Urine WBC 9 H (0-5) /hpf Urine WBC Clumps Rare H (None) /hpf Amorphous Sediment Rare H (None) /hpf Urine Bacteria Rare H (None) /hpf Urine Mucus Many H (None) /hpf 02/19/23 Range/Units 05:17 WBC (4.50-10.00) X 10*3/uL Hgb (13.0-17.5) gm/dL MCH (27.0-32.0) pg MCHC (32.0-37.0) g/dL Neutrophils # (1.80-7.70) X 10*3/uL Lymphocytes # (1.0-4.8) k/uL Eosinophils # (0.04-0.35) X 10*3/uL BUN/Creatinine Ratio 23.33 H (12.00-20.00) Ratio Urine Protein (Negative) Urine Blood (Negative) Ur Leukocyte Esterase (Negative) Urine RBC (0-5) /hpf Urine WBC (0-5) /hpf Urine WBC Clumps (None) /hpf Amorphous Sediment (None) /hpf Urine Bacteria (None) /hpf Urine Mucus (None) /hpf Assessment and Plan (1) Leukocytosis Status: Acute Code(s): D72.829 - ELEVATED WHITE BLOOD CELL COUNT, UNSPECIFIED SNOMED Code(s): 343842914 (2) Perforated sigmoid colon Status: Acute Code(s): K63.1 - PERFORATION OF INTESTINE (NONTRAUMATIC) SNOMED Code(s): 599740592 (3) Peritonitis Status: Acute Code(s): K65.9 - PERITONITIS, UNSPECIFIED SNOMED Code(s): 00818629 Plan: 1patient presented to hospital with abdominal pain diagnosed with a small bowel obstruction in this patient who is status post laparotomy with suspected sigmoid colon tumor with perforation s/p sigmoid colectomy concerning for peritonitis will need to cover for the enteric gram-negative both aerobes and anaerobes 2-cultures has been obtained results will be followed 3-patient to continue Zosyn 3.375 g every 8 hours started last night while waiting for the culture to be finalized We will follow on clinical condition and cultures to further adjust medication if needed Thank you for this consultation we will follow the patient along with you Dictation was produced using [employer] dictation software. please excuse any grammatical, word or spelling errors. Time with Patient: Greater than 30
[2023-02-20 08:04] LABS: ALT 14 U/L (4-49); AST 25 U/L (17-59); African American GFR (CKD) >90 (>60 ml/min/1.73 sqM); Albumin 2.9 g/dL (3.5-5.0); Albumin/Globulin Ratio 1.1; Alkaline Phosphatase 70 U/L (38-126); Anion Gap 7 mmol/L; Blood Urea Nitrogen 18 mg/dL (9-20); Calcium 8.8 mg/dL (8.4-10.2); Carbon Dioxide 26 mmol/L (22-30); Chloride 105 mmol/L (98-107); Globulin 2.7 g/dL; Glucose 115 mg/dL (74-99); Non-African American GFR(CKD) >90 (>60 ml/min/1.73 sqM); Phosphorus 2.8 mg/dL (2.5-4.5); Potassium 4.1 mmol/L (3.5-5.1); Sodium 138 mmol/L (137-145); Total Bilirubin 0.6 mg/dL (0.2-1.3); Total Protein 5.6 g/dL (6.3-8.2)
[2023-02-20 11:04] LABS: Basophils # (A) 0.03 X 10*3/uL (0.00-0.10); Basophils % (A) 0.3 %; HCT 41.5 % (39.6-50.0); HGB 12.8 g/dL (13.0-17.0); MCH 25.7 pg (27.0-32.0); MCHC 30.8 g/dL (32.0-37.0); MCV 83.2 FL (80.0-97.0); Mean Platelet Volume 9.4 FL (9.5-12.2); Monocytes # (A) 0.95 X 10*3/uL (0.20-1.00); Monocytes % (A) 9.5 %; NRBC Per 100 WBC 0 X 10*3/uL (0.00-0.01); Neutrophils # (A) 7.88 X 10*3/uL (1.80-7.70); Neutrophils % (A) 78.6 %; Platelet Count 413 X 10*3/uL (140-440); RBC 4.99 X 10*6/uL (4.40-5.60); RDW 13.3 % (11.5-14.5); WBC 10.02 X 10*3/uL (4.50-10.00)
--- NOTE | 2023-02-20 11:44 | P.PN ---
Progress Note - Text Progress Note Date: 02/20/23 Patient sitting up bedside feeling better. Decreased abdominal pain. Incision is clean dry and intact. Pain is controlled. NG tube in place. Overall doing much better according to patient. Continue to increase activity and incentive spirometer.
--- NOTE | 2023-02-20 11:50 | P.PN ---
Subjective Progress Note Date: 02/20/23 Principal diagnosis: Perforated colon and peritonitis patient is a 42-year-old male with a past medical history significant for chronic back pain history of appendectomy presenting to the hospital for abdominal pain initial concern for small bowel obstruction fail medical therapy patient is status post laparotomy with evidence of possible perforated sigmoid tumor status post sigmoid colectomy. On today's evaluation that is 02/20/2023, the patient denies any fever or any chills, the patient is breathing comfortably on room air without any need for supplemental oxygen, the patient denies any chest pain or any cough , patient denies nausea vomiting abdominal pain has decreased in intensity. Patient white count is down to 10.02, creatinine 0.82 cultures are pending Objective - Vital Signs Vital signs: Vital Signs Temp 97.9 F 02/20/23 07:30 Pulse 63 02/20/23 07:30 Resp 17 02/20/23 07:30 BP 134/64 02/20/23 07:30 Pulse Ox 96 02/20/23 07:30 FiO2 Intake & Output 02/19/23 02/20/23 02/20/23 18:59 06:59 18:59 Intake Total 159.667 Output Total 475 2200 Balance -315.333 -2200 Weight 108.862 kg Intake: Intake, IV Titration 159.667 Amount Ropivacaine 250 mg 159.667 Hydromorphone (Pf) 5 mg In Sodium Chloride 0.9% 200 ml @ Per Protocol EPIDURAL .Q0M PRN Rx#: [id number] Output: Gastric Drainage 0 800 Urine 475 1400 Other: Voiding Method Indwelling Catheter Indwelling Catheter - Exam GENERAL DESCRIPTION: A middle-age male up in the chair in no distress RESPIRATORY SYSTEM: Unlabored breathing , clear to auscultation anteriorly HEART: S1 S2 regular rate and rhythm , ABDOMEN: Soft , mild tenderness EXTREMITIES: No edema feet - Labs CBC & Chem 7: 02/20/23 06:00 02/20/23 06:00 Labs: Abnormal Lab Results - Last 24 Hours (Table) 02/20/23 Range/Units 06:00 Glucose 115 H (74-99) mg/dL Total Protein 5.6 L (6.3-8.2) g/dL Albumin 2.9 L (3.5-5.0) g/dL Microbiology - Last 24 Hours (Table) 02/18/23 18:30 Gram Stain - Preliminary Other - Other Wound Culture - Preliminary Assessment and Plan (1) Perforated sigmoid colon Current Visit: Yes Status: Acute Code(s): K63.1 - PERFORATION OF INTESTINE (NONTRAUMATIC) SNOMED Code(s): 144758666 (2) Peritonitis Current Visit: Yes Status: Acute Code(s): K65.9 - PERITONITIS, UNSPECIFIED SNOMED Code(s): 96591504 (3) Leukocytosis Current Visit: Yes Status: Acute Code(s): D72.829 - ELEVATED WHITE BLOOD CELL COUNT, UNSPECIFIED SNOMED Code(s): 782744981 Plan: 1patient presented to hospital with abdominal pain diagnosed with a small bowel obstruction in this patient who is status post laparotomy with suspected sigmoid colon tumor with perforation s/p sigmoid colectomy concerning for peritonitis will need to cover for the enteric gram-negative both aerobes and anaerobes 2-cultures has been obtained results are currently pending 3-patient white count has normalized, patient to continue Zosyn 3.375 g every 8 hours while waiting for the culture to be finalized Dictation was produced using [employer] dictation software. please excuse any grammatical, word or spelling errors. Time with Patient: Less than 30
--- NOTE | 2023-02-20 16:31 | P.PN ---
Progress Note - Text Progress Note Date: 02/20/23 Postoperative day # 2 status post explaretory laparotomy, sigmoid colectomy ,epidural catheter placed for postoperative analgesia, patient doing well epidural site okay, patient currently on combination of epidural infusion solution of Ropivacaine 0.0625% and Dilaudid 20 g per mL the infusion rate at 10 ml per hour , patient had no motor deficit epidural site okay , vital signs stable ,VAS 2 /10 , Assessment and plan= post operative day #2 patient doing well ,pain well controlled , there is no anesthesia related complications, we'll continue current management
[2023-02-20] MEDS: 1: MVI, ADULT NO.4 WITH VIT K 10 ML, TRACE (CONC-1ML/DOSE) 1 ML in AMINO ACID 5%-D20W+LY IV SCH (17:37)
--- NOTE | 2023-02-20 21:16 | P.PN ---
Subjective This is a 42 year old male with no significant medical history. He reports not having a bowel movement for over a week. On Wednesday he began having abdominal pain, lower quadrant coming and going and reported difficulty urinating. He feels bloated. He does report losing some weight also. Vomited once on Wednesday. He has history of appendectomy, no prior bowel obstruction. He denies fever, denies chills. No shortness of breath, no nausea vomiting or diarrhea. He has not had any change in his eating habits, no bloody stools or dark stools. He i nitially rated his pain about 8 or 9 out of 10 and now pain is about a 7 out of 10 after NG tube has been placed patient had 700 mL bilious output through NG tube. Computed tomography scan had shown evidence of small bowel obstruction. He does have positive bowel sounds and did have small bowel movement. White count 11.4 on admission, Sodium 136. Urinalsis negative. Indwelling catheter was placed for the retention with 1L of urine removed. Patient is admitted to the hospital with general surgery consultation for the small bowel obstruction. 02/16/2023 Patient evaluated today sitting up in bed. NG tube remains in place with bilious outpatient 350 mls in the last 24 hours. Patient did report having a small bowel movement today and abdominal pain has improved nontender now. CT enterography done showing wall thickening of the sigmoid colon in the left lower quadrant as seen in prior imaging there is submucosal hyperenhancement. Findings suggestive of active inflammation in the sigmoid colon and a loop of jejunumin in the mid abdomen wall and upstream dilation suggestive of partial obstruction given there is some fluid transition of the colon from prior exam on one day earlier. Corre late for Chron's. Patient on IV solumedrol and IV antibiotics. Surgery recommending to keep patient NPO. White blood cell count remains normal. 02/17/2023 Patient evaluated today resting in bed. Had a small BM today, non bloody. Abdominal pain continues to improve. Abdominal xray shows increased dilated small bowel loops. Clinically he is improving. Remains on IV steriods, IV antibiotics. 02/18/2023 Patient is evaluated today, he is sitting up. Had a small BM this AM but felt he was not passing stool, he described it as "scar tissue." Did not pass voiding trial, states he had an episode of urinary retention in the past due to an enlarged prostate. IDC was reinserted and pt has been started on flomax. He continues on IV steroids, IV flagyl and IV metronidazole. Abdominal xray today shows similar gasseous distention of bowel throughout the abdomen with nasogastric tube in place. 02/19/2023 This is a pleasant 42 years old male who presents with small bowel obstruction secondary to abdominal adhesions with sigmoid mass with possible perforation, status post exploratory laparotomy, sigmoid colectomy and small bowel resection. Today is postoperative day #1. Comfortable fully awake and oriented, abdominal pain this morning is 04/21. NG tube in place. No other new complaints no chest pain or dyspnea. His vitals stable. Has mild leukocytosis of 12.7 K. Currently covered with Zosyn normal saline 125 mL per hour 02/20/2023 Patient sitting up feels better, NG tube in place, abdominal pain is controlled Sigmoid biopsy still pending Patient is afebrile and vitals stable He remains on Zosyn, normal saline with 25 mm/h and TPN was started today Objective - Vital Signs Vital signs: Vital Signs Temp 97.9 F 02/20/23 07:30 Pulse 63 02/20/23 07:30 Resp 17 02/20/23 07:30 BP 134/64 02/20/23 07:30 Pulse Ox 96 02/20/23 07:30 FiO2 Intake & Output 02/19/23 02/20/23 02/20/23 18:59 06:59 18:59 Intake Total 159.667 Output Total 475 2200 Balance -315.333 -2200 Weight 108.862 kg Intake: Intake, IV Titration 159.667 Amount Ropivacaine 250 mg 159.667 Hydromorphone (Pf) 5 mg In Sodium Chloride 0.9% 200 ml @ Per Protocol EPIDURAL .Q0M PRN Rx#: [id number] Output: Gastric Drainage 0 800 Urine 475 1400 Other: Voiding Method Indwelling Catheter Indwelling Catheter - Exam GENERAL: The patient is alert and oriented x3, not in any acute distress. Well developed, well nourished. HEENT: Pupils are round and equally reacting to light. EOMI. No scleral icterus. No conjunctival pallor. Normocephalic, atraumatic. No pharyngeal erythema. No thyromegaly. CARDIOVASCULAR: S1 and S2 present. No murmurs, rubs, or gallops. PULMONARY: Chest is clear to auscultation, no wheezing , no crackles. -ABDOMEN: Soft, nontender, nondistended, normoactive bowel sounds. No palpable organomegaly. Surgical wound with dressing in place rest of exam was deferred to surgery team MUSCULOSKELETAL: No joint swelling or deformity. EXTREMITIES: No cyanosis, clubbing, or pedal edema. NEUROLOGICAL: Gross neurological examination did not reveal any focal deficits. SKIN: No rashes. no petechiae. - Labs CBC & Chem 7: 02/20/23 06:00 02/20/23 06:00 Labs: Abnormal Lab Results - Last 24 Hours (Table) 02/20/23 Range/Units 06:00 Glucose 115 H (74-99) mg/dL Total Protein 5.6 L (6.3-8.2) g/dL Albumin 2.9 L (3.5-5.0) g/dL Microbiology - Last 24 Hours (Table) 02/18/23 18:30 Gram Stain - Preliminary Other - Other Wound Culture - Preliminary Assessment and Plan Assessment: Partial small bowel obstruction secondary to adhesions with sigmoid mass with possible perforation status post sigmoid colectomy and small bowel resection on 02/18 Possible intra-abdominal infection Urinary retention secondary to above History of appendectomy Plan: Continue with Zosyn Continue with normal saline Patient is started on TPN Pain management, currently pain controlled Surgical team consult infectious disease team on the case. Labs and medication were reviewed.. Continue same treatment. Continue with symptomatic treatment. Resume home medication. Monitor labs and vitals. DVT and GI prophylaxis. Further recommendations as per clinical course of the patient DVT prophylaxis: Subcutaneous heparin GI Prophylaxis: Pepcid Prognosis is guarded
[2023-02-21 00:16] LABS: Glucose,Whole Blood 119 mg/dL (70-110)
[2023-02-21 05:51] LABS: African American GFR (CKD) >90 (>60 ml/min/1.73 sqM); Anion Gap 8 mmol/L; Blood Urea Nitrogen 20 mg/dL (9-20); Calcium 8.5 mg/dL (8.4-10.2); Carbon Dioxide 26 mmol/L (22-30); Chloride 105 mmol/L (98-107); Glucose 142 mg/dL (74-99); Magnesium 2.1 mg/dL (1.6-2.3); Non-African American GFR(CKD) >90 (>60 ml/min/1.73 sqM); Phosphorus 2.4 mg/dL (2.5-4.5); Sodium 139 mmol/L (137-145)
[2023-02-21 06:12] LABS: Glucose,Whole Blood 111 mg/dL (70-110)
--- NOTE | 2023-02-21 10:41 | P.PN ---
Subjective This is a 42 year old male with no significant medical history. He reports not having a bowel movement for over a week. On Wednesday he began having abdominal pain, lower quadrant coming and going and reported difficulty urinating. He feels bloated. He does report losing some weight also. Vomited once on Wednesday. He has history of appendectomy, no prior bowel obstruction. He denies fever, denies chills. No shortness of breath, no nausea vomiting or diarrhea. He has not had any change in his eating habits, no bloody stools or dark stools. He i nitially rated his pain about 8 or 9 out of 10 and now pain is about a 7 out of 10 after NG tube has been placed patient had 700 mL bilious output through NG tube. Computed tomography scan had shown evidence of small bowel obstruction. He does have positive bowel sounds and did have small bowel movement. White count 11.4 on admission, Sodium 136. Urinalsis negative. Indwelling catheter was placed for the retention with 1L of urine removed. Patient is admitted to the hospital with general surgery consultation for the small bowel obstruction. 02/16/2023 Patient evaluated today sitting up in bed. NG tube remains in place with bilious outpatient 350 mls in the last 24 hours. Patient did report having a small bowel movement today and abdominal pain has improved nontender now. CT enterography done showing wall thickening of the sigmoid colon in the left lower quadrant as seen in prior imaging there is submucosal hyperenhancement. Findings suggestive of active inflammation in the sigmoid colon and a loop of jejunumin in the mid abdomen wall and upstream dilation suggestive of partial obstruction given there is some fluid transition of the colon from prior exam on one day earlier. Corre late for Chron's. Patient on IV solumedrol and IV antibiotics. Surgery recommending to keep patient NPO. White blood cell count remains normal. 02/17/2023 Patient evaluated today resting in bed. Had a small BM today, non bloody. Abdominal pain continues to improve. Abdominal xray shows increased dilated small bowel loops. Clinically he is improving. Remains on IV steriods, IV antibiotics. 02/18/2023 Patient is evaluated today, he is sitting up. Had a small BM this AM but felt he was not passing stool, he described it as "scar tissue." Did not pass voiding trial, states he had an episode of urinary retention in the past due to an enlarged prostate. IDC was reinserted and pt has been started on flomax. He continues on IV steroids, IV flagyl and IV metronidazole. Abdominal xray today shows similar gasseous distention of bowel throughout the abdomen with nasogastric tube in place. 02/19/2023 This is a pleasant 42 years old male who presents with small bowel obstruction secondary to abdominal adhesions with sigmoid mass with possible perforation, status post exploratory laparotomy, sigmoid colectomy and small bowel resection. Today is postoperative day #1. Comfortable fully awake and oriented, abdominal pain this morning is 04/21. NG tube in place. No other new complaints no chest pain or dyspnea. His vitals stable. Has mild leukocytosis of 12.7 K. Currently covered with Zosyn normal saline 125 mL per hour 02/20/2023 Patient sitting up feels better, NG tube in place, abdominal pain is controlled Sigmoid biopsy still pending Patient is afebrile and vitals stable He remains on Zosyn, normal saline with 25 mm/h and TPN was started today 02/21/2023 pt is still wit NG Tube , he is npo he was started on TPN and he tolerates that well no or minimal abd pain and tenderness no bowel movement or passing gas yet Objective - Vital Signs Vital signs: Vital Signs Temp 98.2 F 02/21/23 07:31 Pulse 68 02/21/23 07:31 Resp 18 02/21/23 07:31 BP 120/76 02/21/23 07:31 Pulse Ox 98 02/21/23 07:31 FiO2 Intake & Output 02/20/23 02/21/23 02/21/23 18:59 06:59 18:59 Intake Total 2603 Output Total 2050 700 Balance 553 -700 Intake: Intake, IV Titration 2603 Amount Amino Acid 5%-D20w+Lytes* 465 E* 1,000 ml @ 75 mls/hr IV .BY DURATION [facility] Rx#: [id number] Piperacillin-Tazobactam 3 200 .375 gm In Sodium Chloride 0.9% 100 ml @ 25 mls/hr IVPB Q8HR [facility] Rx# :[id number] Ropivacaine 250 mg 238 Hydromorphone (Pf) 5 mg In Sodium Chloride 0.9% 200 ml @ Per Protocol EPIDURAL .Q0M PRN Rx#: [id number] Sodium Chloride 0.9% 1, 1500 000 ml @ 125 mls/hr IV . Q8H [facility] Rx#:[id number] metroNIDAZOLE-NS PMX 500 200 mg In Saline 1 100ml.bag @ 100 mls/hr IVPB Q8HR [facility] Rx#:[id number] Output: Gastric Drainage 1350 700 Urine 700 Other: Voiding Method Indwelling Catheter Indwelling Catheter - Exam GENERAL: The patient is alert and oriented x3, not in any acute distress. Well developed, well nourished. HEENT: Pupils are round and equally reacting to light. EOMI. No scleral icterus. No conjunctival pallor. Normocephalic, atraumatic. No pharyngeal erythema. No thyromegaly. CARDIOVASCULAR: S1 and S2 present. No murmurs, rubs, or gallops. PULMONARY: Chest is clear to auscultation, no wheezing , no crackles. -ABDOMEN: Soft, nontender, nondistended, normoactive bowel sounds. No palpable organomegaly. Surgical wound with dressing in place rest of exam was deferred to surgery team MUSCULOSKELETAL: No joint swelling or deformity. EXTREMITIES: No cyanosis, clubbing, or pedal edema. NEUROLOGICAL: Gross neurological examination did not reveal any focal deficits. SKIN: No rashes. no petechiae. - Labs CBC & Chem 7: 02/20/23 06:00 02/21/23 04:52 Labs: Abnormal Lab Results - Last 24 Hours (Table) 02/20/23 02/20/23 02/21/23 Range/Units 06:00 23:59 04:52 WBC 10.02 H (4.50-10.00) X 10*3/uL Hgb 12.8 L (13.0-17.0) g/dL MCH 25.7 L (27.0-32.0) pg MCHC 30.8 L (32.0-37.0) g/dL MPV 9.4 L (9.5-12.2) FL Neutrophils # 7.88 H (1.80-7.70) X 10*3/uL Glucose 142 H (74-99) mg/dL POC Glucose (mg/dL) 119 H (70-110) mg/dL Phosphorus 2.4 L (2.5-4.5) mg/dL 02/21/23 Range/Units 06:11 WBC (4.50-10.00) X 10*3/uL Hgb (13.0-17.0) g/dL MCH (27.0-32.0) pg MCHC (32.0-37.0) g/dL MPV (9.5-12.2) FL Neutrophils # (1.80-7.70) X 10*3/uL Glucose (74-99) mg/dL POC Glucose (mg/dL) 111 H (70-110) mg/dL Phosphorus (2.5-4.5) mg/dL Microbiology - Last 24 Hours (Table) 02/18/23 18:30 Gram Stain - Final Other - Other Wound Culture - Final 02/19/23 05:17 Blood Culture - Preliminary Blood Assessment and Plan Assessment: Partial small bowel obstruction secondary to adhesions with sigmoid mass with possible perforation status post sigmoid colectomy and small bowel resection on 02/18 Possible intra-abdominal infection Urinary retention secondary to above History of appendectomy Plan: Continue with Zosyn Continue with normal saline Patient is started on TPN Pain management, currently pain controlled Surgical team consult infectious disease team on the case. Labs and medication were reviewed.. Continue same treatment. Continue with symptomatic treatment. Resume home medication. Monitor labs and vitals. DVT and GI prophylaxis. Further recommendations as per clinical course of the patient DVT prophylaxis: Subcutaneous heparin GI Prophylaxis: Pepcid Prognosis is guarded
[2023-02-21 11:46] LABS: Glucose,Whole Blood 100 mg/dL (70-110)
--- NOTE | 2023-02-21 13:17 | P.PN ---
Subjective Progress Note Date: 02/21/23 He reports pain is well controlled. He is sitting up in chair. NO nausea. Urine dark. He still has his epidural. He is post op day 3. Plan for removal of epidural tomorrow morning. Fluid bolus for dark urine. Objective - Vital Signs Vital signs: Vital Signs Temp 98.3 F 02/21/23 13:06 Pulse 72 02/21/23 13:06 Resp 16 02/21/23 13:06 BP 121/78 02/21/23 13:06 Pulse Ox 98 02/21/23 13:06 FiO2 Intake & Output 02/20/23 02/21/23 02/21/23 18:59 06:59 18:59 Intake Total 2603 Output Total 2050 700 Balance 553 -700 Intake: Intake, IV Titration 2603 Amount Amino Acid 5%-D20w+Lytes* 465 E* 1,000 ml @ 75 mls/hr IV .BY DURATION [facility] Rx#: [id number] Piperacillin-Tazobactam 3 200 .375 gm In Sodium Chloride 0.9% 100 ml @ 25 mls/hr IVPB Q8HR [facility] Rx# :[id number] Ropivacaine 250 mg 238 Hydromorphone (Pf) 5 mg In Sodium Chloride 0.9% 200 ml @ Per Protocol EPIDURAL .Q0M PRN Rx#: [id number] Sodium Chloride 0.9% 1, 1500 000 ml @ 125 mls/hr IV . Q8H [facility] Rx#:[id number] metroNIDAZOLE-NS PMX 500 200 mg In Saline 1 100ml.bag @ 100 mls/hr IVPB Q8HR [facility] Rx#:[id number] Output: Gastric Drainage 1350 700 Urine 700 Other: Voiding Method Indwelling Catheter Indwelling Catheter Indwelling Catheter - Labs CBC & Chem 7: 02/20/23 06:00 02/21/23 04:52 Labs: Abnormal Lab Results - Last 24 Hours (Table) 02/20/23 02/21/23 02/21/23 Range/Units 23:59 04:52 06:11 Glucose 142 H (74-99) mg/dL POC Glucose (mg/dL) 119 H 111 H (70-110) mg/dL Phosphorus 2.4 L (2.5-4.5) mg/dL Microbiology - Last 24 Hours (Table) 02/19/23 05:17 Blood Culture - Preliminary Blood 02/18/23 18:30 Gram Stain - Final Other - Other Wound Culture - Final
[2023-02-21] MEDS: SODIUM CHLORIDE 0.9% 2,000 ML IV ONE (13:40)
--- NOTE | 2023-02-21 15:50 | P.PN ---
Subjective Progress Note Date: 02/21/23 Principal diagnosis: Perforated colon and peritonitis patient is a 42-year-old male with a past medical history significant for chronic back pain history of appendectomy presenting to the hospital for abdominal pain initial concern for small bowel obstruction fail medical therapy patient is status post laparotomy with evidence of possible perforated sigmoid tumor status post sigmoid colectomy. On today's evaluation that is 02/21/2023, the patient remains to be afebrile , the patient is breathing comfortably on room air and denies any shortness of breath, the patient denies any chest pain cough or sputum production, patient denies nausea vomiting abdominal pain has decreased in intensity. Patient white count is down to 10.02 as of 02/20/2023, creatinine is 0.80 cultures are so far negative Objective - Vital Signs Vital signs: Vital Signs Temp 98.3 F 02/21/23 13:06 Pulse 72 02/21/23 13:06 Resp 16 02/21/23 13:06 BP 121/78 02/21/23 13:06 Pulse Ox 98 02/21/23 13:06 FiO2 Intake & Output 02/20/23 02/21/23 02/21/23 18:59 06:59 18:59 Intake Total 2603 Output Total 2050 700 Balance 553 -700 Intake: Intake, IV Titration 2603 Amount Amino Acid 5%-D20w+Lytes* 465 E* 1,000 ml @ 75 mls/hr IV .BY DURATION [facility] Rx#: [id number] Piperacillin-Tazobactam 3 200 .375 gm In Sodium Chloride 0.9% 100 ml @ 25 mls/hr IVPB Q8HR [facility] Rx# :[id number] Ropivacaine 250 mg 238 Hydromorphone (Pf) 5 mg In Sodium Chloride 0.9% 200 ml @ Per Protocol EPIDURAL .Q0M [facility] Rx#: [id number] Sodium Chloride 0.9% 1, 1500 000 ml @ 125 mls/hr IV . Q8H [facility] Rx#:[id number] metroNIDAZOLE-NS PMX 500 200 mg In Saline 1 100ml.bag @ 100 mls/hr IVPB Q8HR [facility] Rx#:[id number] Output: Gastric Drainage 1350 700 Urine 700 Other: Voiding Method Indwelling Catheter Indwelling Catheter Indwelling Catheter - Exam GENERAL DESCRIPTION: A middle-age male up in the chair in no distress RESPIRATORY SYSTEM: Unlabored breathing , clear to auscultation anteriorly HEART: S1 S2 regular rate and rhythm , ABDOMEN: Soft , mild tenderness EXTREMITIES: No edema feet - Labs CBC & Chem 7: 02/20/23 06:00 02/21/23 04:52 Labs: Abnormal Lab Results - Last 24 Hours (Table) 02/20/23 02/21/23 02/21/23 Range/Units 23:59 04:52 06:11 Glucose 142 H (74-99) mg/dL POC Glucose (mg/dL) 119 H 111 H (70-110) mg/dL Phosphorus 2.4 L (2.5-4.5) mg/dL Microbiology - Last 24 Hours (Table) 02/19/23 05:17 Blood Culture - Preliminary Blood 02/18/23 18:30 Gram Stain - Final Other - Other Wound Culture - Final Assessment and Plan (1) Perforated sigmoid colon Current Visit: Yes Status: Acute Code(s): K63.1 - PERFORATION OF INTESTINE (NONTRAUMATIC) SNOMED Code(s): 717224267 (2) Peritonitis Current Visit: Yes Status: Acute Code(s): K65.9 - PERITONITIS, UNSPECIFIED SNOMED Code(s): 06172276 (3) Leukocytosis Current Visit: Yes Status: Acute Code(s): D72.829 - ELEVATED WHITE BLOOD CELL COUNT, UNSPECIFIED SNOMED Code(s): 928947480 Plan: 1patient presented to hospital with abdominal pain diagnosed with a small bowel obstruction in this patient who is status post laparotomy with suspected sigmoid colon tumor with perforation s/p sigmoid colectomy concerning for peritonitis will need to cover for the enteric gram-negative both aerobes and anaerobes 2-cultures has been obtained results are currently pending 3-patient seemed to have shown clinical improvement and white count has normalized, patient to continue Zosyn 3.375 g every 8 hours and monitor clinical course closely Dictation was produced using [employer] dictation software. please excuse any grammatical, word or spelling errors. Time with Patient: Less than 30
--- NOTE | 2023-02-21 17:28 | P.PN ---
Progress Note - Text Progress Note Date: 02/21/23 Postoperative day # 3 status post explaretory laparotomy, sigmoid colectomy ,epidural catheter placed for postoperative analgesia, patient doing well epidural site okay, patient currently on combination of epidural infusion solution of Ropivacaine 0.0625% and Dilaudid 20 g per mL the infusion rate at 10 ml per hour , patient had no motor deficit epidural site okay , vital signs stable ,VAS 2 /10 , Assessment and plan= post operative day #3 patient doing well ,pain well controlled , there is no anesthesia related complications, we'll continue current management Epidural catheter will be discontinued tomorrow morning
[2023-02-21 17:33] LABS: Glucose,Whole Blood 78 mg/dL (70-110)
[2023-02-21] MEDS: [UNRECOGNIZED DRUG - REMARK] IV SCH (20:25)
[2023-02-21 23:51] LABS: Glucose,Whole Blood 93 mg/dL (70-110)
[2023-02-22 06:02] LABS: Glucose,Whole Blood 110 mg/dL (70-110)
[2023-02-22 07:11] LABS: African American GFR (CKD) >90 (>60 ml/min/1.73 sqM); Anion Gap 8 mmol/L; Blood Urea Nitrogen 18 mg/dL (9-20); Calcium 8.9 mg/dL (8.4-10.2); Carbon Dioxide 26 mmol/L (22-30); Chloride 105 mmol/L (98-107); Glucose 99 mg/dL (74-99); Magnesium 1.8 mg/dL (1.6-2.3); Non-African American GFR(CKD) >90 (>60 ml/min/1.73 sqM); Phosphorus 3.5 mg/dL (2.5-4.5); Potassium 3.9 mmol/L (3.5-5.1); Sodium 139 mmol/L (137-145)
--- NOTE | 2023-02-22 12:08 | P.PN ---
Subjective Progress Note Date: 02/22/23 CHIEF COMPLAINT: Abdominal pain HISTORY OF PRESENT ILLNESS: Patient is postop day #4 status post exploratory laparotomy, sigmoid colectomy and small bowel resection for small bowel obstruction secondary to abdominal adhesion sigmoid colon mass with suspected perforation. Patient's epidural discontinued this morning. He's had no bowel activity. Reports his pain is controlled. NG tube 600ml output through the night. Patient complaining of shoulder pain from gas. Afebrile. Dr. Pedro covering for Dr. Isaac PHYSICAL EXAM: VITAL SIGNS: Reviewed. GENERAL: Well-developed in no acute distress. ABDOMEN: Soft. mildly distended. Incisional dressing clean, dry and intact. tenderness to the right of the incision NEUROLOGIC: Alert and oriented. Cranial nerves II through XII grossly intact. ASSESSMENT: 1. Small bowel obstruction secondary to abdominal adhesion, sigmoid colon mass with suspected perforation status post exploratory laparotomy, sigmoid colectomy and small bowel resection PLAN: -Epidural and Castillo catheter to be discontinued today -NG tube discontinued -Keep patient nothing by mouth except ice chips and popsicles -Continue TPN for nutrition support -Continue antibiotics -Pathology still pending -Encourage patient to ambulate -Continue pain management -Output through NG tube was dark possible gastritis IV Protonix added twice a day -Add Reglan 10 mg IV every 6 hours to help stimulate bowel activity -Encourage patient to use incentive spirometer -DVT prophylaxis subcu heparin and GI prophylaxis Pepcid Physician Chemist note has been reviewed by physician. Signing provider agrees with the documented findings, assessment, and plan of care. Objective - Vital Signs Vital signs: Vital Signs Temp 97.8 F 02/22/23 07:43 Pulse 61 02/22/23 07:43 Resp 18 02/22/23 07:43 BP 136/82 02/22/23 07:43 Pulse Ox 99 02/22/23 07:43 FiO2 Intake & Output 02/21/23 02/22/23 02/22/23 18:59 06:59 18:59 Intake Total 4791.667 2824.833 Output Total 2100 1500 Balance 2691.667 1324.833 Intake: Intake, IV Titration 4791.667 2824.833 Amount Amino Acid 5%-D20w+Lytes* 1000 E* 1,000 ml @ 75 mls/hr IV .BY DURATION [facility] Rx#: [id number] Mvi, Adult No.4 with Vit 900 K 10 ml Trace (Conc-1Ml/ Dose) 1 ml Sodium Phosphate 10 mmol In Amino Acid 5%-D20w+Lytes* E* 1,000 ml @ 75 mls/hr IV .BY DURATION [facility] Rx#: [id number] Piperacillin-Tazobactam 3 200 100 .375 gm In Sodium Chloride 0.9% 100 ml @ 25 mls/hr IVPB Q8HR [facility] Rx# :[id number] Ropivacaine 250 mg 241.667 124.833 Hydromorphone (Pf) 5 mg In Sodium Chloride 0.9% 200 ml @ Per Protocol EPIDURAL .Q0M [facility] Rx#: [id number] Sodium Chloride 0.9% 1, 1250 1500 000 ml @ 125 mls/hr IV . Q8H [facility] Rx#:[id number] Sodium Chloride 0.9% 2, 2000 000 ml @ 999 mls/hr IV . Q2H[facility] Rx#:[id number] metroNIDAZOLE-NS PMX 500 200 100 mg In Saline 1 100ml.bag @ 100 mls/hr IVPB Q8HR [facility] Rx#:[id number] Output: Gastric Drainage 400 600 Urine 1700 900 Coude 1700 Other: Voiding Method Indwelling Catheter Indwelling Catheter - Labs CBC & Chem 7: 02/20/23 06:00 02/22/23 06:21 Labs: Microbiology - Last 24 Hours (Table) 02/19/23 05:17 Blood Culture - Preliminary Blood 02/18/23 18:30 Gram Stain - Final Other - Other Wound Culture - Final
[2023-02-22 12:20] LABS: Glucose,Whole Blood 107 mg/dL (70-110)
[2023-02-22] MEDS: METOCLOPRAMIDE 5 MG/ML 2 ML VIAL IVP SCH (12:21)
[2023-02-22] MEDS: PANTOPRAZOLE 40 MG/10 ML VIAL IVP SCH (12:21)
--- NOTE | 2023-02-22 12:37 | P.PN ---
Subjective Progress Note Date: 02/22/23 Principal diagnosis: Perforated colon and peritonitis patient is a 42-year-old male with a past medical history significant for chronic back pain history of appendectomy presenting to the hospital for abdominal pain initial concern for small bowel obstruction fail medical therapy patient is status post laparotomy with evidence of possible perforated sigmoid tumor status post sigmoid colectomy. On today's evaluation that is 02/22/2023, the patient continues to be afebrile , the patient is not requiring any supplemental oxygen and is breathing comfortably on room air , the patient denies any chest pain no cough or sputum production, patient denies Abdominal pain and denies any nausea/vomiting, patient mentioned not passing any gas and no bowel movement Patient white count is down to 10.02 as of 02/20/2023, creatinine 0.73 cultures are so far negative Objective - Vital Signs Vital signs: Vital Signs Temp 97.8 F 02/22/23 07:43 Pulse 61 02/22/23 07:43 Resp 18 02/22/23 07:43 BP 136/82 02/22/23 07:43 Pulse Ox 99 02/22/23 07:43 FiO2 Intake & Output 02/21/23 02/22/23 02/22/23 18:59 06:59 18:59 Intake Total 4791.667 2824.833 Output Total 2100 1500 Balance 2691.667 1324.833 Intake: Intake, IV Titration 4791.667 2824.833 Amount Amino Acid 5%-D20w+Lytes* 1000 E* 1,000 ml @ 75 mls/hr IV .BY DURATION [facility] Rx#: [id number] Mvi, Adult No.4 with Vit 900 K 10 ml Trace (Conc-1Ml/ Dose) 1 ml Sodium Phosphate 10 mmol In Amino Acid 5%-D20w+Lytes* E* 1,000 ml @ 75 mls/hr IV .BY DURATION [facility] Rx#: [id number] Piperacillin-Tazobactam 3 200 100 .375 gm In Sodium Chloride 0.9% 100 ml @ 25 mls/hr IVPB Q8HR [facility] Rx# :[id number] Ropivacaine 250 mg 241.667 124.833 Hydromorphone (Pf) 5 mg In Sodium Chloride 0.9% 200 ml @ Per Protocol EPIDURAL .Q0M [facility] Rx#: [id number] Sodium Chloride 0.9% 1, 1250 1500 000 ml @ 125 mls/hr IV . Q8H [facility] Rx#:[id number] Sodium Chloride 0.9% 2, 2000 000 ml @ 999 mls/hr IV . Q2H1[facility] Rx#:[id number] metroNIDAZOLE-NS PMX 500 200 100 mg In Saline 1 100ml.bag @ 100 mls/hr IVPB Q8HR [facility] Rx#:[id number] Output: Gastric Drainage 400 600 Urine 1700 900 Coude 1700 Other: Voiding Method Indwelling Catheter Indwelling Catheter Indwelling Catheter - Exam GENERAL DESCRIPTION: A middle-age male up in the chair in no distress RESPIRATORY SYSTEM: Unlabored breathing , clear to auscultation anteriorly HEART: S1 S2 regular rate and rhythm , ABDOMEN: Soft , mild tenderness EXTREMITIES: No edema feet - Labs CBC & Chem 7: 02/20/23 06:00 02/22/23 06:21 Labs: Microbiology - Last 24 Hours (Table) 02/19/23 05:17 Blood Culture - Preliminary Blood Assessment and Plan (1) Perforated sigmoid colon Current Visit: Yes Status: Acute Code(s): K63.1 - PERFORATION OF INTESTINE (NONTRAUMATIC) SNOMED Code(s): 247187110 (2) Peritonitis Current Visit: Yes Status: Acute Code(s): K65.9 - PERITONITIS, UNSPECIFIED SNOMED Code(s): 66632755 (3) Leukocytosis Current Visit: Yes Status: Acute Code(s): D72.829 - ELEVATED WHITE BLOOD CELL COUNT, UNSPECIFIED SNOMED Code(s): 919503237 Plan: 1patient presented to hospital with abdominal pain diagnosed with a small bowel obstruction in this patient who is status post laparotomy with suspected sigmoid colon tumor with perforation s/p sigmoid colectomy concerning for peritonitis will need to cover for the enteric gram-negative both aerobes and anaerobes 2-cultures has been obtained results are currently pending 3-patient a slowly clinical improvement the patient remains to be afebrile and white count is normal, patient to continue Zosyn 3.375 g every 8 hours and monitor clinical course closely Dictation was produced using [employer] dictation software. please excuse any gra mmatical, word or spelling errors. Time with Patient: Less than 30
[2023-02-22 14:04] LABS: Basophils % (A) 0 %; Eosinophils # (A) 0.5 k/uL (0-0.7); Eosinophils % (A) 7 %; HCT 40.6 % (39.0-53.0); HGB 12.1 gm/dL (13.0-17.5); Hypochromasia Marked; Lymphocytes # (A) 0.9 k/uL (1.0-4.8); Lymphocytes % (A) 13 %; MCH 25.9 pg (25.0-35.0); MCHC 29.8 g/dL (31.0-37.0); MCV 86.9 fL (80.0-100.0); Mean Platelet Volume 9.1; Monocytes # (A) 0.4 k/uL (0-1.0); Monocytes % (A) 6 %; Neutrophils # (A) 5.2 k/uL (1.3-7.7); Neutrophils % (A) 72 %; Platelet Count 409 k/uL (150-450); RBC 4.67 m/uL (4.30-5.90); WBC 7.2 k/uL (3.8-10.6)
[2023-02-22 17:28] LABS: Glucose,Whole Blood 89 mg/dL (70-110)
--- NOTE | 2023-02-22 18:49 | P.PN ---
Subjective This is a 42 year old male with no significant medical history. He reports not having a bowel movement for over a week. On Wednesday he began having abdominal pain, lower quadrant coming and going and reported difficulty urinating. He feels bloated. He does report losing some weight also. Vomited once on Wednesday. He has history of appendectomy, no prior bowel obstruction. He denies fever, denies chills. No shortness of breath, no nausea vomiting or diarrhea. He has not had any change in his eating habits, no bloody stools or dark stools. He i nitially rated his pain about 8 or 9 out of 10 and now pain is about a 7 out of 10 after NG tube has been placed patient had 700 mL bilious output through NG tube. Computed tomography scan had shown evidence of small bowel obstruction. He does have positive bowel sounds and did have small bowel movement. White count 11.4 on admission, Sodium 136. Urinalsis negative. Indwelling catheter was placed for the retention with 1L of urine removed. Patient is admitted to the hospital with general surgery consultation for the small bowel obstruction. 02/16/2023 Patient evaluated today sitting up in bed. NG tube remains in place with bilious outpatient 350 mls in the last 24 hours. Patient did report having a small bowel movement today and abdominal pain has improved nontender now. CT enterography done showing wall thickening of the sigmoid colon in the left lower quadrant as seen in prior imaging there is submucosal hyperenhancement. Findings suggestive of active inflammation in the sigmoid colon and a loop of jejunumin in the mid abdomen wall and upstream dilation suggestive of partial obstruction given there is some fluid transition of the colon from prior exam on one day earlier. Corre late for Chron's. Patient on IV solumedrol and IV antibiotics. Surgery recommending to keep patient NPO. White blood cell count remains normal. 02/17/2023 Patient evaluated today resting in bed. Had a small BM today, non bloody. Abdominal pain continues to improve. Abdominal xray shows increased dilated small bowel loops. Clinically he is improving. Remains on IV steriods, IV antibiotics. 02/18/2023 Patient is evaluated today, he is sitting up. Had a small BM this AM but felt he was not passing stool, he described it as "scar tissue." Did not pass voiding trial, states he had an episode of urinary retention in the past due to an enlarged prostate. IDC was reinserted and pt has been started on flomax. He continues on IV steroids, IV flagyl and IV metronidazole. Abdominal xray today shows similar gasseous distention of bowel throughout the abdomen with nasogastric tube in place. 02/19/2023 This is a pleasant 42 years old male who presents with small bowel obstruction secondary to abdominal adhesions with sigmoid mass with possible perforation, status post exploratory laparotomy, sigmoid colectomy and small bowel resection. Today is postoperative day #1. Comfortable fully awake and oriented, abdominal pain this morning is 04/21. NG tube in place. No other new complaints no chest pain or dyspnea. His vitals stable. Has mild leukocytosis of 12.7 K. Currently covered with Zosyn normal saline 125 mL per hour 02/20/2023 Patient sitting up feels better, NG tube in place, abdominal pain is controlled Sigmoid biopsy still pending Patient is afebrile and vitals stable He remains on Zosyn, normal saline with 25 mm/h and TPN was started today 02/21/2023 pt is still wit NG Tube , he is npo he was started on TPN and he tolerates that well no or minimal abd pain and tenderness no bowel movement or passing gas yet 02/22/2023 Patient lying in bed comfortable, abdominal pain controlled Vitals stable RBC 10.0. Patient remains on normal saline 1 25 mL/h, TPN and Zosyn Reglan and Protonix were added today Surgery team are planning to discontinue Castillo catheter and epidural catheter Objective - Vital Signs Vital signs: Vital Signs Temp 97.8 F 02/22/23 07:43 Pulse 61 02/22/23 07:43 Resp 18 02/22/23 07:43 BP 136/82 02/22/23 07:43 Pulse Ox 99 02/22/23 07:43 FiO2 Intake & Output 02/21/23 02/22/23 02/22/23 18:59 06:59 18:59 Intake Total 4791.667 2824.833 Output Total 2100 1500 Balance 2691.667 1324.833 Intake: Intake, IV Titration 4791.667 2824.833 Amount Amino Acid 5%-D20w+Lytes* 1000 E* 1,000 ml @ 75 mls/hr IV .BY DURATION [facility] Rx#: [id number] Mvi, Adult No.4 with Vit 900 K 10 ml Trace (Conc-1Ml/ Dose) 1 ml Sodium Phosphate 10 mmol In Amino Acid 5%-D20w+Lytes* E* 1,000 ml @ 75 mls/hr IV .BY DURATION [facility] Rx#: [id number] Piperacillin-Tazobactam 3 200 100 .375 gm In Sodium Chloride 0.9% 100 ml @ 25 mls/hr IVPB Q8HR [facility] Rx# :[id number] Ropivacaine 250 mg 241.667 124.833 Hydromorphone (Pf) 5 mg In Sodium Chloride 0.9% 200 ml @ Per Protocol EPIDURAL .Q0M PRN Rx#: [id number] Sodium Chloride 0.9% 1, 1250 1500 000 ml @ 125 mls/hr IV . Q8H [facility] Rx#:[id number] Sodium Chloride 0.9% 2, 2000 000 ml @ 999 mls/hr IV . Q2H1M ONE Rx#:[id number] metroNIDAZOLE-NS PMX 500 200 100 mg In Saline 1 100ml.bag @ 100 mls/hr IVPB Q8HR [facility] Rx#:[id number] Output: Gastric Drainage 400 600 Urine 1700 900 Coude 1700 Other: Voiding Method Indwelling Catheter Indwelling Catheter Indwelling Catheter - Exam GENERAL: The patient is alert and oriented x3, not in any acute distress. Well developed, well nourished. HEENT: Pupils are round and equally reacting to light. EOMI. No scleral icterus. No conjunctival pallor. Normocephalic, atraumatic. No pharyngeal erythema. No thyromegaly. CARDIOVASCULAR: S1 and S2 present. No murmurs, rubs, or gallops. PULMONARY: Chest is clear to auscultation, no wheezing , no crackles. -ABDOMEN: Soft, nontender, nondistended, normoactive bowel sounds. No palpable organomegaly. Surgical wound with dressing in place rest of exam was deferred to surgery team MUSCULOSKELETAL: No joint swelling or deformity. EXTREMITIES: No cyanosis, clubbing, or pedal edema. NEUROLOGICAL: Gross neurological examination did not reveal any focal deficits. SKIN: No rashes. no petechiae. - Labs CBC & Chem 7: 02/22/23 06:21 02/22/23 06:21 Labs: Microbiology - Last 24 Hours (Table) 02/19/23 05:17 Blood Culture - Preliminary Blood Assessment and Plan Assessment: Partial small bowel obstruction secondary to adhesions with sigmoid mass with possible perforation status post sigmoid colectomy and small bowel resection on 02/18 Possible intra-abdominal infection Urinary retention secondary to above History of appendectomy Plan: Continue with Zosyn Continue with normal saline Patient is started on TPN Pain management, currently pain controlled Surgical team consult infectious disease team on the case. Labs and medication were reviewed.. Continue same treatment. Continue with symptomatic treatment. Resume home medication. Monitor labs and vitals. DVT and GI prophylaxis. Further recommendations as per clinical course of the pat ient DVT prophylaxis: Subcutaneous heparin GI Prophylaxis: Pepcid Prognosis is guarded
[2023-02-22] MEDS: TAMSULOSIN 0.4 MG CAP.ER.24H PO SCH (20:17)
[2023-02-23 00:28] LABS: Glucose,Whole Blood 100 mg/dL (70-110)
[2023-02-23 06:17] LABS: Glucose,Whole Blood 98 mg/dL (70-110)
[2023-02-23 07:32] LABS: African American GFR (CKD) >90 (>60 ml/min/1.73 sqM); Anion Gap 7 mmol/L; Blood Urea Nitrogen 14 mg/dL (9-20); Calcium 8.7 mg/dL (8.4-10.2); Carbon Dioxide 26 mmol/L (22-30); Chloride 102 mmol/L (98-107); Glucose 107 mg/dL (74-99); Magnesium 1.8 mg/dL (1.6-2.3); Non-African American GFR(CKD) >90 (>60 ml/min/1.73 sqM); Phosphorus 3.9 mg/dL (2.5-4.5); Potassium 4.2 mmol/L (3.5-5.1); Sodium 135 mmol/L (137-145)
[2023-02-23 12:19] LABS: Glucose,Whole Blood 91 mg/dL (70-110)
--- NOTE | 2023-02-23 13:05 | P.PN ---
Subjective Progress Note Date: 02/23/23 CHIEF COMPLAINT: Abdominal pain HISTORY OF PRESENT ILLNESS: Patient is postop day #5 status post exploratory laparotomy, sigmoid colectomy and small bowel resection for small bowel obstruction secondary to abdominal adhesion sigmoid colon mass with suspected perforation. Patient's pain is controlled. He has been up and ambulating. Still no bowel activity. Afebrile. His TPN for nutrition support. Sodium 135 potassium [address] Pedro covering for Dr. Isaac PHYSICAL EXAM: VITAL SIGNS: Reviewed. GENERAL: Well-developed in no acute distress. ABDOMEN: Soft. mildly distended. Incisional dressing clean, dry and intact. tenderness to the right of the incision NEUROLOGIC: Alert and oriented. Cranial nerves II through XII grossly intact. ASSESSMENT: 1. Small bowel obstruction secondary to abdominal adhesion, sigmoid colon mass with suspected perforation status post exploratory laparotomy, sigmoid colectomy and small bowel resection PLAN: -Continue pain management -Keep patient nothing by mouth except ice chips and popsicles -Patient to chew gum -Continue TPN for nutrition support -Continue antibiotics per ID service -Pathology still pending -Encourage patient to ambulate -Continue Reglan 10 mg IV every 6 hours -Encourage patient to use incentive spirometer -DVT prophylaxis subcu heparin and GI prophylaxis Protonix Phys[facility] Communication [facility] Coordinator note has been reviewed by physician. Signing provider agrees with the documented findings, assessment, and plan of care. Objective - Vital Signs Vital signs: Vital Signs Temp 97.8 F 02/23/23 07:45 Pulse 70 02/23/23 07:45 Resp 18 02/23/23 07:45 BP 128/85 02/23/23 07:45 Pulse Ox 99 02/23/23 07:45 FiO2 Intake & Output 02/22/23 02/23/23 02/23/23 18:59 06:59 18:59 Intake Total 1014.3333 Output Total 125 1600 Balance 889.3333 -1600 Weight 108.862 kg Intake: Intake, IV Titration 1014.3333 Amount Mvi, Adult No.4 with Vit 1014.3333 K 10 ml Trace (Conc-1Ml/ Dose) 1 ml Sodium Phosphate 10 mmol In Amino Acid 5%-D20w+Lytes* E* 1,000 ml @ 75 mls/hr IV .BY DURATION COUNTS INCLUDE 234 BEDS AT THE [facility] Rx#: [id number] Output: Urine 125 1600 Other: Voiding Method Indwelling Catheter Toilet Urinal - Labs CBC & Chem 7: 02/22/23 06:21 02/23/23 06:24 Labs: Abnormal Lab Results - Last 24 Hours (Table) 02/22/23 02/23/23 Range/Units 06:21 06:24 Hgb 12.1 L (13.0-17.5) gm/dL MCHC 29.8 L (31.0-37.0) g/dL Lymphocytes # 0.9 L (1.0-4.8) k/uL Sodium 135 L (137-145) mmol/L Glucose 107 H (74-99) mg/dL Microbiology - Last 24 Hours (Table) 02/18/23 18:30 Anaerobic Culture - Final Other - Other Anaerobic Gm Negative Bacilli Anaerobic Gram Negative Cocci Anaerobic Gram Positive Cocci 02/19/23 05:17 Blood Culture - Preliminary Blood
[2023-02-23] MEDS: [UNRECOGNIZED DRUG - REMARK] IV SCH (13:27)
--- NOTE | 2023-02-23 14:17 | P.PN ---
Subjective Progress Note Date: 02/23/23 Principal diagnosis: Perforated colon and peritonitis patient is a 42-year-old male with a past medical history significant for chronic back pain history of appendectomy presenting to the hospital for abdominal pain initial concern for small bowel obstruction fail medical therapy patient is status post laparotomy with evidence of possible perforated sigmoid tumor status post sigmoid colectomy. On today's evaluation that is 02/23/2023, the patient remains to be afebrile , the patient is breathing comfortably on room air , the patient denies chest pain shortness of breath or cough , patient denies nausea/vomiting, and NG has been discontinued mention he did have some burps but not passing any gas Patient white count is down to 10.02 as of 02/20/2023, creatinine 0.67 cultures are currently growing anaerobes Objective - Vital Signs Vital signs: Vital Signs Temp 97.8 F 02/23/23 07:45 Pulse 70 02/23/23 07:45 Resp 18 02/23/23 07:45 BP 128/85 02/23/23 07:45 Pulse Ox 99 02/23/23 07:45 FiO2 Intake & Output 02/22/23 02/23/23 02/23/23 18:59 06:59 18:59 Intake Total 1014.3333 Output Total 125 1600 Balance 889.3333 -1600 Weight 108.862 kg Intake: Intake, IV Titration 1014.3333 Amount Mvi, Adult No.4 with Vit 1014.3333 K 10 ml Trace (Conc-1Ml/ Dose) 1 ml Sodium Phosphate 10 mmol In Amino Acid 5%-D20w+Lytes* E* 1,000 ml @ 75 mls/hr IV .BY DURATION [facility] Rx#: [id number] Output: Urine 125 1600 Other: Voiding Method Indwelling Catheter Toilet Toilet Urinal Urinal - Exam GENERAL DESCRIPTION: A middle-age male up in the chair in no distress RESPIRATORY SYSTEM: Unlabored breathing , clear to auscultation anteriorly HEART: S1 S2 regular rate and rhythm , ABDOMEN: Soft , mild tenderness EXTREMITIES: No edema feet - Labs CBC & Chem 7: 02/22/23 06:21 02/23/23 06:24 Labs: Abnormal Lab Results - Last 24 Hours (Table) 02/22/23 02/23/23 Range/Units 06:21 06:24 Hgb 12.1 L (13.0-17.5) gm/dL MCHC 29.8 L (31.0-37.0) g/dL Lymphocytes # 0.9 L (1.0-4.8) k/uL Sodium 135 L (137-145) mmol/L Glucose 107 H (74-99) mg/dL Microbiology - Last 24 Hours (Table) 02/18/23 18:30 Anaerobic Culture - Final Other - Other Anaerobic Gm Negative Bacilli Anaerobic Gram Negative Cocci Anaerobic Gram Positive Cocci 02/19/23 05:17 Blood Culture - Preliminary Blood Assessment and Plan (1) Perforated sigmoid colon Current Visit: Yes Status: Acute Code(s): K63.1 - PERFORATION OF INTESTINE (NONTRAUMATIC) SNOMED Code(s): 646815278 (2) Peritonitis Current Visit: Yes Status: Acute Code(s): K65.9 - PERITONITIS, UNSPECIFIED SNOMED Code(s): 74603422 (3) Leukocytosis Current Visit: Yes Status: Acute Code(s): D72.829 - ELEVATED WHITE BLOOD CELL COUNT, UNSPECIFIED SNOMED Code(s): 790612097 Plan: 1patient presented to hospital with abdominal pain diagnosed with a small bowel obstruction in this patient who is status post laparotomy with suspected sigmoid colon tumor with perforation s/p sigmoid colectomy concerning for peritonitis will need to cover for the enteric gram-negative both aerobes and anaerobes 2-cultures has been obtained results are currently growing anaerobes 3-patient has shown clinical improvement the patient remains to be afebrile and white count is normal, patient to continue Zosyn 3.375 g every 8 hours and will transition to oral antibiotics on discharge Dictation was produced using [employer] dictation software. please excuse any grammatical, word or spelling errors. Time with Patient: Less than 30
--- NOTE | 2023-02-23 15:35 | P.PN ---
Subjective This is a 42 year old male with no significant medical history. He reports not having a bowel movement for over a week. On Wednesday he began having abdominal pain, lower quadrant coming and going and reported difficulty urinating. He feels bloated. He does report losing some weight also. Vomited once on Wednesday. He has history of appendectomy, no prior bowel obstruction. He denies fever, denies chills. No shortness of breath, no nausea vomiting or diarrhea. He has not had any change in his eating habits, no bloody stools or dark stools. He i nitially rated his pain about 8 or 9 out of 10 and now pain is about a 7 out of 10 after NG tube has been placed patient had 700 mL bilious output through NG tube. Computed tomography scan had shown evidence of small bowel obstruction. He does have positive bowel sounds and did have small bowel movement. White count 11.4 on admission, Sodium 136. Urinalsis negative. Indwelling catheter was placed for the retention with 1L of urine removed. Patient is admitted to the hospital with general surgery consultation for the small bowel obstruction. 02/16/2023 Patient evaluated today sitting up in bed. NG tube remains in place with bilious outpatient 350 mls in the last 24 hours. Patient did report having a small bowel movement today and abdominal pain has improved nontender now. CT enterography done showing wall thickening of the sigmoid colon in the left lower quadrant as seen in prior imaging there is submucosal hyperenhancement. Findings suggestive of active inflammation in the sigmoid colon and a loop of jejunumin in the mid abdomen wall and upstream dilation suggestive of partial obstruction given there is some fluid transition of the colon from prior exam on one day earlier. Corre late for Chron's. Patient on IV solumedrol and IV antibiotics. Surgery recommending to keep patient NPO. White blood cell count remains normal. 02/17/2023 Patient evaluated today resting in bed. Had a small BM today, non bloody. Abdominal pain continues to improve. Abdominal xray shows increased dilated small bowel loops. Clinically he is improving. Remains on IV steriods, IV antibiotics. 02/18/2023 Patient is evaluated today, he is sitting up. Had a small BM this AM but felt he was not passing stool, he described it as "scar tissue." Did not pass voiding trial, states he had an episode of urinary retention in the past due to an enlarged prostate. IDC was reinserted and pt has been started on flomax. He continues on IV steroids, IV flagyl and IV metronidazole. Abdominal xray today shows similar gasseous distention of bowel throughout the abdomen with nasogastric tube in place. 02/19/2023 This is a pleasant 42 years old male who presents with small bowel obstruction secondary to abdominal adhesions with sigmoid mass with possible perforation, status post exploratory laparotomy, sigmoid colectomy and small bowel resection. Today is postoperative day #1. Comfortable fully awake and oriented, abdominal pain this morning is 04/21. NG tube in place. No other new complaints no chest pain or dyspnea. His vitals stable. Has mild leukocytosis of 12.7 K. Currently covered with Zosyn normal saline 125 mL per hour 02/20/2023 Patient sitting up feels better, NG tube in place, abdominal pain is controlled Sigmoid biopsy still pending Patient is afebrile and vitals stable He remains on Zosyn, normal saline with 25 mm/h and TPN was started today 02/21/2023 pt is still wit NG Tube , he is npo he was started on TPN and he tolerates that well no or minimal abd pain and tenderness no bowel movement or passing gas yet 02/22/2023 Patient lying in bed comfortable, abdominal pain controlled Vitals stable RBC 10.0. Patient remains on normal saline 1 25 mL/h, TPN and Zosyn Reglan and Protonix were added today Surgery team are planning to discontinue Castillo catheter and epidural catheter 02/23/2023 Patient still has normal bowel movement, did not pass S although he has no abd ominal pain. NG tube was taken off. No vomiting. Patient continued on TPN and Zosyn for now We'll continue to monitor Objective - Vital Signs Vital signs: Vital Signs Temp 98 F 02/23/23 14:00 Pulse 66 02/23/23 14:00 Resp 18 02/23/23 14:00 BP 135/89 02/23/23 14:00 Pulse Ox 99 02/23/23 14:00 FiO2 Intake & Output 02/22/23 02/23/23 02/23/23 18:59 06:59 18:59 Intake Total 1014.3333 Output Total 125 1600 Balance 889.3333 -1600 Weight 108.862 kg 108.862 kg Intake: Intake, IV Titration 1014.3333 Amount Mvi, Adult No.4 with Vit 1014.3333 K 10 ml Trace (Conc-1Ml/ Dose) 1 ml Sodium Phosphate 10 mmol In Amino Acid 5%-D20w+Lytes* E* 1,000 ml @ 75 mls/hr IV .BY DURATION [facility] Rx#: [id number] Output: Urine 125 1600 Other: Voiding Method Indwelling Catheter Toilet Toilet Urinal Urinal - Exam GENERAL: The patient is alert and oriented x3, not in any acute distress. Well developed, well nourished. HEENT: Pupils are round and equally reacting to light. EOMI. No scleral icterus. No conjunctival pallor. Normocephalic, atraumatic. No pharyngeal erythema. No thyromegaly. CARDIOVASCULAR: S1 and S2 present. No murmurs, rubs, or gallops. PULMONARY: Chest is clear to auscultation, no wheezing , no crackles. -ABDOMEN: Soft, nontender, nondistended, normoactive bowel sounds. No palpable organomegaly. Surgical wound with dressing in place rest of exam was deferred to surgery team MUSCULOSKELETAL: No joint swelling or deformity. EXTREMITIES: No cyanosis, clubbing, or pedal edema. NEUROLOGICAL: Gross neurological examination did not reveal any focal deficits. SKIN: No rashes. no petechiae. - Labs CBC & Chem 7: 02/22/23 06:21 02/23/23 06:24 Labs: Abnormal Lab Results - Last 24 Hours (Table) 02/23/23 Range/Units 06:24 Sodium 135 L (137-145) mmol/L Glucose 107 H (74-99) mg/dL Microbiology - Last 24 Hours (Table) 02/18/23 18:30 Anaerobic Culture - Final Other - Other Anaerobic Gm Negative Bacilli Anaerobic Gram Negative Cocci Anaerobic Gram Positive Cocci 02/19/23 05:17 Blood Culture - Preliminary Blood Assessment and Plan Assessment: Partial small bowel obstruction secondary to adhesions with sigmoid mass with possible perforation status post sigmoid colectomy and small bowel resection on 02/18 Possible intra-abdominal infection Urinary retention secondary to above History of appendectomy Plan: Continue with Zosyn Continue with normal saline Patient is started on TPN Pain management, currently pain controlled Surgical team consult infectious disease team on the case. Labs and medication were reviewed.. Continue same treatment. Continue with symptomatic treatment. Resume home medication. Monitor labs and vitals. DVT and GI prophylaxis. Further recommendations as per clinical course of the patient DVT prophylaxis: Subcutaneous heparin GI Prophylaxis: Pepcid Prognosis is guarded
[2023-02-23 17:51] LABS: Glucose,Whole Blood 106 mg/dL (70-110)
[2023-02-24 00:23] LABS: Glucose,Whole Blood 124 mg/dL (70-110)
[2023-02-24 06:16] LABS: Glucose,Whole Blood 115 mg/dL (70-110)
[2023-02-24 06:29] LABS: African American GFR (CKD) >90 (>60 ml/min/1.73 sqM); Anion Gap 8 mmol/L; Blood Urea Nitrogen 15 mg/dL (9-20); Calcium 8.7 mg/dL (8.4-10.2); Carbon Dioxide 27 mmol/L (22-30); Chloride 101 mmol/L (98-107); Glucose 124 mg/dL (74-99); Non-African American GFR(CKD) >90 (>60 ml/min/1.73 sqM); Phosphorus 4.3 mg/dL (2.5-4.5); Potassium 4.2 mmol/L (3.5-5.1); Sodium 136 mmol/L (137-145)
--- NOTE | 2023-02-24 12:14 | P.PN ---
Subjective Progress Note Date: 02/24/23 Principal diagnosis: Perforated colon and peritonitis patient is a 42-year-old male with a past medical history significant for chronic back pain history of appendectomy presenting to the hospital for abdominal pain initial concern for small bowel obstruction fail medical therapy patient is status post laparotomy with evidence of possible perforated sigmoid tumor status post sigmoid colectomy. On today's evaluation that is 02/24/2023, the patient continues to be afebrile , the patient is breathing comfortably on room air and no need for supplemental oxygen, the patient denies chest pain shortness of breath or cough , patient denies nausea/vomiting, no abdominal pain and the patient did have some burps but not passing any gas Patient white count is down to 10.02 as of 02/20/2023, creatinine is 0.69 cultures are currently growing anaerobes Objective - Vital Signs Vital signs: Vital Signs Temp 97.7 F 02/24/23 06:55 Pulse 62 02/24/23 06:55 Resp 16 02/24/23 06:55 BP 136/83 02/24/23 06:55 Pulse Ox 98 02/24/23 06:55 FiO2 Intake & Output 02/23/23 02/24/23 02/24/23 18:59 06:59 18:59 Intake Total 1836.666 Output Total 1000 Balance 836.666 Weight 108.862 kg Intake: Intake, IV Titration 1836.666 Amount Mvi, Adult No.4 with Vit 833.333 K 10 ml Trace (Conc-1Ml/ Dose) 1 ml Sodium Phosphate 10 mmol In Amino Acid 5%-D20w+Lytes* E* 1,000 ml @ 100 mls/hr IV .BY DURATION [facility] Rx#: [id number] Sodium Phosphate 10 mmol 1003.333 In Amino Acid 5%-D20w+ Lytes*E* 1,000 ml @ 100 mls/hr IV .BY DURATION [facility] Rx#:[id number] Output: Urine 1000 Other: Voiding Method Toilet Toilet Urinal Urinal # Voids 4 - Exam GENERAL DESCRIPTION: A middle-age male up in the chair in no distress RESPIRATORY SYSTEM: Unlabored breathing , clear to auscultation anteriorly HEART: S1 S2 regular rate and rhythm , ABDOMEN: Soft , mild tenderness EXTREMITIES: No edema feet - Labs CBC & Chem 7: 02/22/23 06:21 02/24/23 05:36 Labs: Abnormal Lab Results - Last 24 Hours (Table) 02/24/23 02/24/23 02/24/23 Range/Units 00:22 05:36 06:14 Sodium 136 L (137-145) mmol/L Glucose 124 H (74-99) mg/dL POC Glucose (mg/dL) 124 H 115 H (70-110) mg/dL Assessment and Plan (1) Perforated sigmoid colon Current Visit: Yes Status: Acute Code(s): K63.1 - PERFORATION OF INTESTINE (NONTRAUMATIC) SNOMED Code(s): 697170616 (2) Peritonitis Current Visit: Yes Status: Acute Code(s): K65.9 - PERITONITIS, UNSPECIFIED SNOMED Code(s): 80608484 (3) Leukocytosis Current Visit: Yes Status: Acute Code(s): D72.829 - ELEVATED WHITE BLOOD CELL COUNT, UNSPECIFIED SNOMED Code(s): 002246017 Plan: 1patient presented to hospital with abdominal pain diagnosed with a small bowel obstruction in this patient who is status post laparotomy with suspected sigmoid colon tumor with perforation s/p sigmoid colectomy concerning for peritonitis will need to cover for the enteric gram-negative both aerobes and anaerobes 2-cultures has been obtained results are currently growing anaerobes 3-patient remains to be afebrile and white count is normal, 4- patient to continue Zosyn 3.375 g every 8 hours and will transition to oral antibiotics on discharge Dictation was produced using [employer] dictation software. please excuse any grammatical, word or spelling errors. Time with Patient: Less than 30
[2023-02-24 12:20] LABS: Glucose,Whole Blood 114 mg/dL (70-110)
--- NOTE | 2023-02-24 13:26 | P.PN ---
Subjective Progress Note Date: 02/24/23 CHIEF COMPLAINT: Abdominal pain HISTORY OF PRESENT ILLNESS: Patient is postop day #6 status post exploratory laparotomy, sigmoid colectomy and small bowel resection for small bowel obstruction secondary to abdominal adhesion sigmoid colon mass with suspected perforation. Patient's pain is controlled. He has been up and ambulating. Still no bowel activity. Afebrile. Has TPN for nutrition support. Urinating without difficulty. Dr. Pedro covering for Dr. Isaac PHYSICAL EXAM: VITAL SIGNS: Reviewed. GENERAL: Well-developed in no acute distress. ABDOMEN: Soft. mildly distended. Incisional dressing clean, dry and intact. NEUROLOGIC: Alert and oriented. Cranial nerves II through XII grossly intact. ASSESSMENT: 1. Small bowel obstruction secondary to abdominal adhesion, sigmoid colon mass with suspected perforation status post exploratory laparotomy, sigmoid colectomy and small bowel resection PLAN: -Encouraged patient to ambulate in hallway and chew gum -Abdominal xray ordered to check for ileus -change abdominal dressing -Continue pain management -Keep patient nothing by mouth except ice chips and popsicles -Continue TPN for nutrition support -Continue antibiotics per ID service -Encourage patient to ambulate -Continue Reglan 10 mg IV every 6 hours -Encourage patient to use incentive spirometer -DVT prophylaxis subcu heparin and GI prophylaxis Protonix Physician Surgical Services Coordinator note has been reviewed by physician. Signing provider agrees with the documented findings, assessment, and plan of care. Objective - Vital Signs Vital signs: Vital Signs Temp 97.7 F 02/24/23 06:55 Pulse 62 02/24/23 06:55 Resp 16 02/24/23 06:55 BP 136/83 02/24/23 06:55 Pulse Ox 98 02/24/23 06:55 FiO2 Intake & Output 02/23/23 02/24/23 02/24/23 18:59 06:59 18:59 Intake Total 1836.666 Output Total 1000 Balance 836.666 Weight 108.862 kg Intake: Intake, IV Titration 1836.666 Amount Mvi, Adult No.4 with Vit 833.333 K 10 ml Trace (Conc-1Ml/ Dose) 1 ml Sodium Phosphate 10 mmol In Amino Acid 5%-D20w+Lytes* E* 1,000 ml @ 100 mls/hr IV .BY DURATION [facility] Rx#: [id number] Sodium Phosphate 10 mmol 1003.333 In Amino Acid 5%-D20w+ Lytes*E* 1,000 ml @ 100 mls/hr IV .BY DURATION [facility] Rx#:[id number] Output: Urine 1000 Other: Voiding Method Toilet Toilet Urinal Urinal # Voids 4 - Labs CBC & Chem 7: 02/22/23 06:21 02/24/23 05:36 Labs: Abnormal Lab Results - Last 24 Hours (Table) 02/24/23 02/24/23 02/24/23 Range/Units 00:22 05:36 06:14 Sodium 136 L (137-145) mmol/L Glucose 124 H (74-99) mg/dL POC Glucose (mg/dL) 124 H 115 H (70-110) mg/dL 02/24/23 Range/Units 12:19 Sodium (137-145) mmol/L Glucose (74-99) mg/dL POC Glucose (mg/dL) 114 H (70-110) mg/dL Microbiology - Last 24 Hours (Table) 02/19/23 05:17 Blood Culture - Final Blood
--- NOTE | 2023-02-24 15:28 | XR ---
EXAMINATION TYPE: XR abdomen 2V DATE OF EXAM: 02/24/2023 COMPARISON: 02/18/2023 INDICATION: Small bowel obstruction TECHNIQUE: Single view abdomen supine view FINDINGS: Prominent dilated small bowel loops are evident. Air is within:. No mass effect is evident. Psoas mar gins are normal. Organomegaly is not evident. IMPRESSION: 1. Dilated air-filled small bowel loops. Correlate for small bowel obstruction. Ileus could be consid ered. Follow-up is recommended
[2023-02-24 18:30] LABS: Glucose,Whole Blood 98 mg/dL (70-110)
[2023-02-24] MEDS: 1: MVI, ADULT NO.4 WITH VIT K 10 ML, TRACE (CONC-1ML/DOSE) 1 ML, SODIUM CHLORIDE 4MEQ/ML IV SCH (22:18)
[2023-02-25 00:19] LABS: Glucose,Whole Blood 168 mg/dL (70-110)
[2023-02-25 06:09] LABS: Glucose,Whole Blood 117 mg/dL (70-110)
--- NOTE | 2023-02-25 06:29 | P.PN ---
Subjective This is a 42 year old male with no significant medical history. He reports not having a bowel movement for over a week. On Wednesday he began having abdominal pain, lower quadrant coming and going and reported difficulty urinating. He feels bloated. He does report losing some weight also. Vomited once on Wednesday. He has history of appendectomy, no prior bowel obstruction. He denies fever, denies chills. No shortness of breath, no nausea vomiting or diarrhea. He has not had any change in his eating habits, no bloody stools or dark stools. He i nitially rated his pain about 8 or 9 out of 10 and now pain is about a 7 out of 10 after NG tube has been placed patient had 700 mL bilious output through NG tube. Computed tomography scan had shown evidence of small bowel obstruction. He does have positive bowel sounds and did have small bowel movement. White count 11.4 on admission, Sodium 136. Urinalsis negative. Indwelling catheter was placed for the retention with 1L of urine removed. Patient is admitted to the hospital with general surgery consultation for the small bowel obstruction. 02/16/2023 Patient evaluated today sitting up in bed. NG tube remains in place with bilious outpatient 350 mls in the last 24 hours. Patient did report having a small bowel movement today and abdominal pain has improved nontender now. CT enterography done showing wall thickening of the sigmoid colon in the left lower quadrant as seen in prior imaging there is submucosal hyperenhancement. Findings suggestive of active inflammation in the sigmoid colon and a loop of jejunumin in the mid abdomen wall and upstream dilation suggestive of partial obstruction given there is some fluid transition of the colon from prior exam on one day earlier. Corre late for Chron's. Patient on IV solumedrol and IV antibiotics. Surgery recommending to keep patient NPO. White blood cell count remains normal. 02/17/2023 Patient evaluated today resting in bed. Had a small BM today, non bloody. Abdominal pain continues to improve. Abdominal xray shows increased dilated small bowel loops. Clinically he is improving. Remains on IV steriods, IV antibiotics. 02/18/2023 Patient is evaluated today, he is sitting up. Had a small BM this AM but felt he was not passing stool, he described it as "scar tissue." Did not pass voiding trial, states he had an episode of urinary retention in the past due to an enlarged prostate. IDC was reinserted and pt has been started on flomax. He continues on IV steroids, IV flagyl and IV metronidazole. Abdominal xray today shows similar gasseous distention of bowel throughout the abdomen with nasogastric tube in place. 02/19/2023 This is a pleasant 42 years old male who presents with small bowel obstruction secondary to abdominal adhesions with sigmoid mass with possible perforation, status post exploratory laparotomy, sigmoid colectomy and small bowel resection. Today is postoperative day #1. Comfortable fully awake and oriented, abdominal pain this morning is 04/21. NG tube in place. No other new complaints no chest pain or dyspnea. His vitals stable. Has mild leukocytosis of 12.7 K. Currently covered with Zosyn normal saline 125 mL per hour 02/20/2023 Patient sitting up feels better, NG tube in place, abdominal pain is controlled Sigmoid biopsy still pending Patient is afebrile and vitals stable He remains on Zosyn, normal saline with 25 mm/h and TPN was started today 02/21/2023 pt is still wit NG Tube , he is npo he was started on TPN and he tolerates that well no or minimal abd pain and tenderness no bowel movement or passing gas yet 02/22/2023 Patient lying in bed comfortable, abdominal pain controlled Vitals stable RBC 10.0. Patient remains on normal saline 1 25 mL/h, TPN and Zosyn Reglan and Protonix were added today Surgery team are planning to discontinue Castillo catheter and epidural catheter 02/23/2023 Patient still has normal bowel movement, did not pass S although he has no abd ominal pain. NG tube was taken off. No vomiting. Patient continued on TPN and Zosyn for now We'll continue to monitor 02/24/2023 Patient clinically the same Abdominal pain is minimal and patient is not in distress however, passing gases no bowel movement Abdominal x-ray showing ileus Patient remains on IV Zosyn and Reglan Objective - Vital Signs Vital signs: Vital Signs Temp 97.7 F 02/24/23 06:55 Pulse 62 02/24/23 06:55 Resp 16 02/24/23 06:55 BP 136/83 02/24/23 06:55 Pulse Ox 98 02/24/23 06:55 FiO2 Intake & Output 02/23/23 02/24/23 02/24/23 18:59 06:59 18:59 Intake Total 1836.666 Output Total 1000 Balance 836.666 Weight 108.862 kg Intake: Intake, IV Titration 1836.666 Amount Mvi, Adult No.4 with Vit 833.333 K 10 ml Trace (Conc-1Ml/ Dose) 1 ml Sodium Phosphate 10 mmol In Amino Acid 5%-D20w+Lytes* E* 1,000 ml @ 100 mls/hr IV .BY DURATION [facility] Rx#: [id number] Sodium Phosphate 10 mmol 1003.333 In Amino Acid 5%-D20w+ Lytes*E* 1,000 ml @ 100 mls/hr IV .BY DURATION [facility] Rx#:[id number] Output: Urine 1000 Other: Voiding Method Toilet Toilet Urinal Urinal # Voids 4 - Exam GENERAL: The patient is alert and oriented x3, not in any acute distress. Well developed, well nourished. HEENT: Pupils are round and equally reacting to light. EOMI. No scleral icterus. No conjunctival pallor. Normocephalic, atraumatic. No pharyngeal erythema. No thyromegaly. CARDIOVASCULAR: S1 and S2 present. No murmurs, rubs, or gallops. PULMONARY: Chest is clear to auscultation, no wheezing , no crackles. -ABDOMEN: Soft, nontender, nondistended, normoactive bowel sounds. No palpable organomegaly. Surgical wound with dressing in place rest of exam was deferred to surgery team MUSCULOSKELETAL: No joint swelling or deformity. EXTREMITIES: No cyanosis, clubbing, or pedal edema. NEUROLOGICAL: Gross neurological examination did not reveal any focal deficits. SKIN: No rashes. no petechiae. - Labs CBC & Chem 7: 02/22/23 06:21 02/24/23 05:36 Labs: Abnormal Lab Results - Last 24 Hours (Table) 02/24/23 02/24/23 02/24/23 Range/Units 00:22 05:36 06:14 Sodium 136 L (137-145) mmol/L Glucose 124 H (74-99) mg/dL POC Glucose (mg/dL) 124 H 115 H (70-110) mg/dL 02/24/23 Range/Units 12:19 Sodium (137-145) mmol/L Glucose (74-99) mg/dL POC Glucose (mg/dL) 114 H (70-110) mg/dL Microbiology - Last 24 Hours (Table) 02/19/23 05:17 Blood Culture - Final Blood Assessment and Plan Assessment: Partial small bowel obstruction secondary to adhesions with sigmoid mass with possible perforation status post sigmoid colectomy and small bowel resection on 02/18 Possible intra-abdominal infection Urinary retention secondary to above History of appendectomy Plan: Continue with Zosyn Continue with normal saline Patient is started on TPN Pain management, currently pain controlled Surgical team consult infectious disease team on the case. Labs and medication were reviewed.. Continue same treatment. Continue with symptomatic treatment. Resume home medication. Monitor labs and vitals. DVT and GI prophylaxis. Further recommendations as per clinical course of the patient DVT prophylaxis: Subcutaneous heparin GI Prophylaxis: Pepcid Prognosis is guarded
[2023-02-25 06:35] LABS: African American GFR (CKD) >90 (>60 ml/min/1.73 sqM); Anion Gap 9 mmol/L; Blood Urea Nitrogen 15 mg/dL (9-20); Carbon Dioxide 27 mmol/L (22-30); Chloride 100 mmol/L (98-107); Glucose 120 mg/dL (74-99); Magnesium 2.1 mg/dL (1.6-2.3); Non-African American GFR(CKD) >90 (>60 ml/min/1.73 sqM); Phosphorus 4.2 mg/dL (2.5-4.5); Potassium 4.5 mmol/L (3.5-5.1); Sodium 136 mmol/L (137-145)
--- NOTE | 2023-02-25 11:46 | IR ---
PICC LINE PLACEMENT: HISTORY: Infection requiring long-term antibiotic therapy PROCEDURE: Ultrasound and fluoroscopic guidance of PICC line placement. COMPLICATIONS: None ANESTHESIA: 1. 1% Lidocaine locally. FINDINGS/TECHNIQUE: The procedure was explained to the patient. The risks, complications, benefits and alternatives were discussed and any questions were answered. Informed consent was obtained. The patient was placed supine on the fluoroscopic table and prepped and draped in the usual sterile fash ion. Utilizing a 21 gauge needle and sonographic and fluoroscopic guidance, access in the left basi lic vein was achieved and there is placement of a 0.018 guidewire. The vein is patent. A 4-F sheath was placed over the guidewire. The guidewire and dilator were removed and a 4-F. PICC line was plac ed through the sheath with the tip at the level of the SVC. The sheath was removed, the catheter was flushed and sutured into position. The patient was stable throughout the procedure and remained sta ble upon discharge from the Department of Radiology. The vein puncture was patent under ultrasound. A leal scale image was obtained to document patency of the vein punctured. All elements of the maximal barrier technique were utilized. FLUOROSCOPY TIME: DAP 0.5830Gy cm2 IMPRESSION: Successful PICC line placement under ultrasound and fluoroscopic guidance.
[2023-02-25 12:12] LABS: Glucose,Whole Blood 82 mg/dL (70-110)
--- NOTE | 2023-02-25 13:23 | P.PN ---
Subjective Progress Note Date: 02/25/23 Principal diagnosis: Perforated colon and peritonitis patient is a 42-year-old male with a past medical history significant for chronic back pain history of appendectomy presenting to the hospital for abdominal pain initial concern for small bowel obstruction fail medical therapy patient is status post laparotomy with evidence of possible perforated sigmoid tumor status post sigmoid colectomy. On today's evaluation that is 02/25/2023, the patient remains to be afebrile , the patient is breathing comfortably on room air and denies any shortness of breath, the patient denies chest pain or cough , patient abdominal discomfort has decreased in intensity, no nausea/vomiting and the patient did have some burps but not passing any gas Patient white count is down to 10.02 as of 02/20/2023, creatinine is 0.78 cultures are currently growing anaerobes Objective - Vital Signs Vital signs: Vital Signs Temp 98.1 F 02/25/23 07:37 Pulse 59 L 02/25/23 08:00 Resp 12 02/25/23 08:00 BP 124/75 02/25/23 07:37 Pulse Ox 100 02/25/23 07:37 FiO2 Intake & Output 02/24/23 02/25/23 02/25/23 18:59 06:59 18:59 Intake Total 1000 1001.667 Balance 1000 1001.667 Intake: Intake, IV Titration 1000 1001.667 Amount Mvi, Adult No.4 with Vit 1001.667 K 10 ml Trace (Conc-1Ml/ Dose) 1 ml Sodium Chloride 4Meq/ml Vial 24 meq In Amino Acid 5%-D20w +Lytes*E* 1,000 ml @ 100 mls/hr IV .BY DURATION [facility] Rx#:[id number] Sodium Chloride 4Meq/ml 1000 Vial 24 meq In Amino Acid 5%-D20w+Lytes*E* 1,000 ml @ 100 mls/hr IV .BY DURATION [facility] Rx#: [id number] Other: Voiding Method Toilet Toilet Urinal Urinal # Voids 2 - Exam GENERAL DESCRIPTION: A middle-age male up in the chair in no distress RESPIRATORY SYSTEM: Unlabored breathing , clear to auscultation anteriorly HEART: S1 S2 regular rate and rhythm , ABDOMEN: Soft , mild tenderness EXTREMITIES: No edema feet - Labs CBC & Chem 7: 02/22/23 06:21 02/25/23 05:29 Labs: Abnormal Lab Results - Last 24 Hours (Table) 02/24/23 02/25/23 02/25/23 Range/Units 12:19 00:17 05:29 Sodium 136 L (137-145) mmol/L Glucose 120 H (74-99) mg/dL POC Glucose (mg/dL) 114 H 168 H (70-110) mg/dL 02/25/23 Range/Units 06:07 Sodium (137-145) mmol/L Glucose (74-99) mg/dL POC Glucose (mg/dL) 117 H (70-110) mg/dL Microbiology - Last 24 Hours (Table) 02/19/23 05:17 Blood Culture - Final Blood Assessment and Plan (1) Perforated sigmoid colon Current Visit: Yes Status: Acute Code(s): K63.1 - PERFORATION OF INTESTINE (NONTRAUMATIC) SNOMED Code(s): 438848918 (2) Peritonitis Current Visit: Yes Status: Acute Code(s): K65.9 - PERITONITIS, UNSPECIFIED SNOMED Code(s): 01624807 (3) Leukocytosis Current Visit: Yes Status: Acute Code(s): D72.829 - ELEVATED WHITE BLOOD CELL COUNT, UNSPECIFIED SNOMED Code(s): 103542164 Plan: 1patient presented to hospital with abdominal pain diagnosed with a small bowel obstruction in this patient who is status post laparotomy with suspected sigmoid colon tumor with perforation s/p sigmoid colectomy concerning for peritonitis will need to cover for the enteric gram-negative both aerobes and anaerobes 2-cultures has been obtained results are currently growing anaerobes 3-patient remains to be afebrile and white count is normal, 4- patient to continue Zosyn 3.375 g every 8 hours , patient did get a PICC line, right IJ central line should be discontinued to decrease risk of line infection Dictation was produced using [employer] dictation software. please excuse any grammatical, word or spelling errors. Time with Patient: Less than 30
--- NOTE | 2023-02-25 14:01 | P.PN ---
Subjective Progress Note Date: 02/25/23 CHIEF COMPLAINT: Abdominal pain HISTORY OF PRESENT ILLNESS: Patient is postop day #7 status post exploratory laparotomy, sigmoid colectomy and small bowel resection for small bowel obstruction secondary to abdominal adhesion sigmoid colon mass with suspected perforation. Patient's pain is controlled. He has been up and ambulating. Still no bowel activity. Afebrile. Has TPN for nutrition support. Abdominal x-ray shows dilated air-filled small bowel loops. Correlate for small bowel obstruction. Ileus could be considered. Pathology results show invasive moderately differentiated adenocarcinoma with [address] Pedro covering for Dr. Isaac PHYSICAL EXAM: VITAL SIGNS: Reviewed. GENERAL: Well-developed in no acute distress. ABDOMEN: Soft. mildly distended. Incisional dressing clean, dry and intact. NEUROLOGIC: Alert and oriented. Cranial nerves II through XII grossly intact. ASSESSMENT: 1. Small bowel obstruction secondary to abdominal adhesion, sigmoid colon mass with suspected perforation status post exploratory laparotomy, sigmoid colectomy and small bowel resection PLAN: -Consult oncology service due to positive pathology results adenocarcinoma -Small bowel follow-through with Gastrografin ordered for further evaluation of possible small bowel obstruction versus ileus -Patient can have broth only until the small bowel follow-through for tomorrow -Encouraged patient to ambulate in hallway and chew gum -Discontinue the central line and PICC line ordered -Continue TPN for nutrition support -Continue antibiotics per ID service -Encourage patient to ambulate -Continue Reglan 10 mg IV every 6 hours -Encourage patient to use incentive spirometer -DVT prophylaxis subcu heparin and GI prophylaxis Protonix Physician Website Designer note has been reviewed by physician. Signing provider agrees with the documented findings, assessment, and plan of care. Objective - Vital Signs Vital signs: Vital Signs Temp 98.1 F 02/25/23 07:37 Pulse 59 L 02/25/23 07:37 Resp 12 02/25/23 07:37 BP 124/75 02/25/23 07:37 Pulse Ox 100 02/25/23 07:37 FiO2 Intake & Output 02/24/23 02/25/23 02/25/23 18:59 06:59 18:59 Intake Total 1000 1001.667 Balance 1000 1001.667 Intake: Intake, IV Titration 1000 1001.667 Amount Mvi, Adult No.4 with Vit 1001.667 K 10 ml Trace (Conc-1Ml/ Dose) 1 ml Sodium Chloride 4Meq/ml Vial 24 meq In Amino Acid 5%-D20w +Lytes*E* 1,000 ml @ 100 mls/hr IV .BY DURATION [facility] Rx#:[id number] Sodium Chloride 4Meq/ml 1000 Vial 24 meq In Amino Acid 5%-D20w+Lytes*E* 1,000 ml @ 100 mls/hr IV .BY DURATION [facility] Rx#: [id number] Other: Voiding Method Toilet Urinal # Voids 2 - Labs CBC & Chem 7: 02/22/23 06:21 02/25/23 05:29 Labs: Abnormal Lab Results - Last 24 Hours (Table) 02/24/23 02/25/23 02/25/23 Range/Units 12:19 00:17 05:29 Sodium 136 L (137-145) mmol/L Glucose 120 H (74-99) mg/dL POC Glucose (mg/dL) 114 H 168 H (70-110) mg/dL 02/25/23 Range/Units 06:07 Sodium (137-145) mmol/L Glucose (74-99) mg/dL POC Glucose (mg/dL) 117 H (70-110) mg/dL Microbiology - Last 24 Hours (Table) 02/19/23 05:17 Blood Culture - Final Blood
[2023-02-25 17:35] LABS: Glucose,Whole Blood 75 mg/dL (70-110)
[2023-02-25] MEDS ORDERED: RX INFO: IV CONTRAST WAS GIVEN 1 EACH MISC MISCELLANE PRN (20:46)
--- NOTE | 2023-02-25 21:07 | P.CONS ---
History of Present Illness - Reason for Consult Consult date: 02/25/23 colon adenocarcinoma, new diagnosis Requesting physician: Tricia Springer - Chief Complaint abd pain - History of Present Illness Mr. Weiss is a 42 yo male with no significant PNH who presented to the hospital with c/o no BM for over a week. Pt reported that he 1st noted change in bowel habits with increased constipation about 2 years ago. He was awakened with lower abd pain, associated with bloating and difficulty urinating, vomited once. Denied fevers, sweats, SOB, chest pain, leg swelling, black or bloody stool. He has had notable unintentional wt loss. He had NG tube placed, CT AP showed SBO. On the he had exp lap, sigmoid colectomy, small bowel resection. Post op he is doing well, he is on TPN, he had broth today, no vomiting or unusual abd pain. Labs reviewed did not reveal any glaring abnormalities, mild anemia, lymphopenia, renal and liver function normal, slightly low albumin and protein levels. Path reports a Grade 2, 6.5cm tumor invading the musclari propria with perinural invasion, 05/11 LN +, no macroscopic tumor perforation, BRAF V600E negative. Review of Systems 10 point ROS is neg except as stated in HPI Past Medical History Past Medical History: No Reported History, Cancer Additional Past Medical History / Comment(s): chronic back pain History of Any Multi-Drug Resistant Organisms: None Reported Past Surgical History: Appendectomy Additional Past Surgical History / Comment(s): Kidney stone Past Anesthesia/Blood Transfusion Reactions: No Reported Reaction Past Psychological History: No Psychological Hx Reported Smoking Status: Never smoker Past Alcohol Use History: None Reported Past Drug Use History: None Reported - Past Family History Mother Family Medical History: No Reported History Father Family Medical History: No Reported History Medications and Allergies Home Medications Medication Instructions Recorded Confirmed Type No Known Home Medications 02/14/23 02/14/23 History Allergies Allergy/AdvReac Type Severity Reaction Status Date / Time No Known Allergies Allergy Verified 02/14/23 17:24 Physical Exam Vitals: Vital Signs Temp Pulse Resp BP BP Pulse Ox 02/25/23 14:00 97.5 F L 78 14 117/71 98 02/25/23 08:00 59 L 12 02/25/23 07:37 98.1 F 59 L 12 124/75 100 02/25/23 02:00 98.1 F 70 16 124/78 97 02/24/23 22:18 63 16 02/24/23 20:00 98.3 F 63 16 115/67 99 Intake and Output 02/25/23 02/25/23 02/25/23 06:59 14:59 22:59 Intake Total 1001.667 Balance 1001.667 Intake: Intake, IV Titration 1001.667 Amount Mvi, Adult No.4 with Vit 1001.667 K 10 ml Trace (Conc-1Ml/ Dose) 1 ml Sodium Chloride 4Meq/ml Vial 24 meq In Amino Acid 5%-D20w +Lytes*E* 1,000 ml @ 100 mls/hr IV .BY DURATION [facility], [facility]–1983 Rx#:[id number] Other: Voiding Method Toilet Urinal # Voids 2 - Constitutional General appearance: average body habitus, cooperative, no acute distress - EENT Eyes: anicteric sclerae, EOMI ENT: hearing grossly normal, normal oropharynx - Neck Neck: no lymphadenopathy - Respiratory Respiratory: bilateral: CTA - Cardiovascular Rhythm: regular Heart sounds: normal: S1, S2 Abnormal Heart Sounds: no systolic murmur, no diastolic murmur, no rub, no S3 Gallop, no S4 Gallop, no click, no other leg Peripheral Edema: bilateral: None - Gastrointestinal General gastrointestinal: absent bowel sounds, no decreased bowel sounds, no distended, no hepatomegaly, no hyperactive bowel sounds, no normal bowel sounds, no organomegaly, no rigid, no scaphoid, soft, no splenomegaly, tenderness, no umbilical hernia, no ventral hernia - Integumentary Integumentary: normal - Neurologic Neurologic: CNII-XII intact - Musculoskeletal Musculoskeletal: strength equal bilaterally - Psychiatric Psychiatric: A&O x's 3, appropriate affect, intact judgment & insight Results CBC & Chem 7: 02/22/23 06:21 02/25/23 05:29 Labs: Abnormal Lab Results - Last 24 Hours (Table) 02/25/23 02/25/23 02/25/23 Range/Units 00:17 05:29 06:07 Sodium 136 L (137-145) mmol/L Glucose 120 H (74-99) mg/dL POC Glucose (mg/dL) 168 H 117 H (70-110) mg/dL Microbiology - Last 24 Hours (Table) 02/19/23 05:17 Blood Culture - Final Blood CT scan - abdomen: report reviewed CT scan - pelvis: report reviewed Assessment and Plan (1) Colon adenocarcinoma Current Visit: Yes Status: Acute Priority: High Code(s): C18.9 - MALIGNANT NEOPLASM OF COLON, UNSPECIFIED SNOMED Code(s): 295623406 Plan: Newly diagnosed colon adenocarcinoma -Had pt call to discuss pathology -Path report reviewed. Grade 2, 6.5cm tumor invading the musclari propria with perinural invasion, 05/11 LN +, no macroscopic tumor perforation, final pathological staging pT3 pN1a Mx-stage IIIA colon adenocarcinoma. BRAF V600E negative. -Recommended based on staging and pathology adjuvant chemotherapy to reduce the risk of recurrence. 6mo chemotherapy with FOLFOX regimen is the standard adjuvant regimen. No treatment would begin until pt has healed from surgery. -We discussed that pt age at diagnosis, children need to begin screening at age 33. -Recommended genetic testing for mcfadden syndrome -Tissue blocks will be requested to be sent for NGS testing -CT chest to complete staging ordered All questions answered to the best of my ability. Pt stated that they are not making any decision about doing treatment until she has had time to research everything. Time with Patient: Greater than 30
--- NOTE | 2023-02-25 22:41 | P.PN ---
Subjective This is a 42 year old male with no significant medical history. He reports not having a bowel movement for over a week. On Wednesday he began having abdominal pain, lower quadrant coming and going and reported difficulty urinating. He feels bloated. He does report losing some weight also. Vomited once on Wednesday. He has history of appendectomy, no prior bowel obstruction. He denies fever, denies chills. No shortness of breath, no nausea vomiting or diarrhea. He has not had any change in his eating habits, no bloody stools or dark stools. He i nitially rated his pain about 8 or 9 out of 10 and now pain is about a 7 out of 10 after NG tube has been placed patient had 700 mL bilious output through NG tube. Computed tomography scan had shown evidence of small bowel obstruction. He does have positive bowel sounds and did have small bowel movement. White count 11.4 on admission, Sodium 136. Urinalsis negative. Indwelling catheter was placed for the retention with 1L of urine removed. Patient is admitted to the hospital with general surgery consultation for the small bowel obstruction. 02/16/2023 Patient evaluated today sitting up in bed. NG tube remains in place with bilious outpatient 350 mls in the last 24 hours. Patient did report having a small bowel movement today and abdominal pain has improved nontender now. CT enterography done showing wall thickening of the sigmoid colon in the left lower quadrant as seen in prior imaging there is submucosal hyperenhancement. Findings suggestive of active inflammation in the sigmoid colon and a loop of jejunumin in the mid abdomen wall and upstream dilation suggestive of partial obstruction given there is some fluid transition of the colon from prior exam on one day earlier. Corre late for Chron's. Patient on IV solumedrol and IV antibiotics. Surgery recommending to keep patient NPO. White blood cell count remains normal. 02/17/2023 Patient evaluated today resting in bed. Had a small BM today, non bloody. Abdominal pain continues to improve. Abdominal xray shows increased dilated small bowel loops. Clinically he is improving. Remains on IV steriods, IV antibiotics. 02/18/2023 Patient is evaluated today, he is sitting up. Had a small BM this AM but felt he was not passing stool, he described it as "scar tissue." Did not pass voiding trial, states he had an episode of urinary retention in the past due to an enlarged prostate. IDC was reinserted and pt has been started on flomax. He continues on IV steroids, IV flagyl and IV metronidazole. Abdominal xray today shows similar gasseous distention of bowel throughout the abdomen with nasogastric tube in place. 02/19/2023 This is a pleasant 42 years old male who presents with small bowel obstruction secondary to abdominal adhesions with sigmoid mass with possible perforation, status post exploratory laparotomy, sigmoid colectomy and small bowel resection. Today is postoperative day #1. Comfortable fully awake and oriented, abdominal pain this morning is 04/21. NG tube in place. No other new complaints no chest pain or dyspnea. His vitals stable. Has mild leukocytosis of 12.7 K. Currently covered with Zosyn normal saline 125 mL per hour 02/20/2023 Patient sitting up feels better, NG tube in place, abdominal pain is controlled Sigmoid biopsy still pending Patient is afebrile and vitals stable He remains on Zosyn, normal saline with 25 mm/h and TPN was started today 02/21/2023 pt is still wit NG Tube , he is npo he was started on TPN and he tolerates that well no or minimal abd pain and tenderness no bowel movement or passing gas yet 02/22/2023 Patient lying in bed comfortable, abdominal pain controlled Vitals stable RBC 10.0. Patient remains on normal saline 1 25 mL/h, TPN and Zosyn Reglan and Protonix were added today Surgery team are planning to discontinue Castillo catheter and epidural catheter 02/23/2023 Patient still has normal bowel movement, did not pass S although he has no abd ominal pain. NG tube was taken off. No vomiting. 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 Oncology team were consulted who recommended chemotherapy after wound healing and also CT of the chest for staging which is pending for now. And creatinine within the reference range Objective - Vital Signs Vital signs: Vital Signs Temp 97.5 F L 02/25/23 18:07 Pulse 84 02/25/23 21:00 Resp 18 02/25/23 18:07 BP 119/68 02/25/23 18:07 Pulse Ox 98 02/25/23 18:07 FiO2 Intake & Output 02/25/23 02/25/23 02/26/23 06:59 18:59 06:59 Intake Total 1001.667 Balance 1001.667 Intake: Intake, IV Titration 1001.667 Amount Mvi, Adult No.4 with Vit 1001.667 K 10 ml Trace (Conc-1Ml/ Dose) 1 ml Sodium Chloride 4Meq/ml Vial 24 meq In Amino Acid 5%-D20w +Lytes*E* 1,000 ml @ 100 mls/hr IV .BY DURATION [facility] Rx#:[id number] Other: Voiding Method Toilet Toilet Toilet Urinal Urinal Urinal # Voids 2 4 - Exam GENERAL: The patient is alert and oriented x3, not in any acute distress. Well developed, well nourished. HEENT: Pupils are round and equally reacting to light. EOMI. No scleral icterus. No conjunctival pallor. Normocephalic, atraumatic. No pharyngeal erythema. No thyromegaly. CARDIOVASCULAR: S1 and S2 present. No murmurs, rubs, or gallops. PULMONARY: Chest is clear to auscultation, no wheezing , no crackles. -ABDOMEN: Soft, nontender, nondistended, normoactive bowel sounds. No palpable organomegaly. Surgical wound with dressing in place rest of exam was deferred to surgery team MUSCULOSKELETAL: No joint swelling or deformity. EXTREMITIES: No cyanosis, clubbing, or pedal edema. NEUROLOGICAL: Gross neurological examination did not reveal any focal deficits. SKIN: No rashes. no petechiae. - Labs CBC & Chem 7: 02/22/23 06:21 02/25/23 05:29 Labs: Abnormal Lab Results - Last 24 Hours (Table) 02/25/23 02/25/23 02/25/23 Range/Units 00:17 05:29 06:07 Sodium 136 L (137-145) mmol/L Glucose 120 H (74-99) mg/dL POC Glucose (mg/dL) 168 H 117 H (70-110) mg/dL Assessment and Plan Assessment: Adenocarcinoma, of the sigmoid colon status post surgical resection Partial small bowel obstruction secondary to adhesions with sigmoid mass with possible perforation status post sigmoid colectomy and small bowel resection on 02/18 Possible intra-abdominal infection Urinary retention secondary to above History of appendectomy Plan: Continue with Zosyn Oncology consult Patient is started on TPN Pain management, currently pain controlled Surgical team consult infectious disease team on the case. Labs and medication were reviewed.. Continue same treatment. Continue with symptomatic treatment. Resume home medication. Monitor labs and vitals. DVT and GI prophylaxis. Further recommendations as per clinical course of the patient DVT prophylaxis: Subcutaneous heparin GI Prophylaxis: Pepcid Prognosis is guarded
[2023-02-25 23:58] LABS: Glucose,Whole Blood 131 mg/dL (70-110)
[2023-02-26 06:15] LABS: Glucose,Whole Blood 89 mg/dL (70-110)
[2023-02-26 07:09] LABS: African American GFR (CKD) >90 (>60 ml/min/1.73 sqM); Anion Gap 8 mmol/L; Blood Urea Nitrogen 15 mg/dL (9-20); Calcium 8.9 mg/dL (8.4-10.2); Carbon Dioxide 27 mmol/L (22-30); Chloride 102 mmol/L (98-107); Glucose 92 mg/dL (74-99); Magnesium 2.1 mg/dL (1.6-2.3); Non-African American GFR(CKD) >90 (>60 ml/min/1.73 sqM); Phosphorus 4.2 mg/dL (2.5-4.5); Potassium 4.5 mmol/L (3.5-5.1); Sodium 137 mmol/L (137-145)
--- NOTE | 2023-02-26 09:01 | CT ---
EXAMINATION TYPE: CT chest w con DATE OF EXAM: 02/25/2023 COMPARISON: Radiograph 02/18/2023 HISTORY: 42-year-old male staging colon adenocarcinoma TECHNIQUE: Contiguous axial scanning of the chest after the administration of 100 mL of Isovue 300. Coronal/sagittal reconstructions performed. CT DLP: 385.7mGycm. Automatic exposure control utilized for a dose reduction. FINDINGS: The heart is normal size with trace anterior pericardial fluid measuring 5 mm thick. Aorta normal caliber weight conventional arch vessel branching anatomy. No thoracic lymphadenopathy by CT size criteria. Minimal emphysematous change. Hazy dependent atelectasis is present. Bandlike areas of atelectasis at the left base. No consolidation or pleural effusion. No suspicious pulmonary nodule is seen. Visualized upper abdomen shows mild free intraperitoneal air. Scattered prominent bowel loops are pre sent throughout. Scattered hepatic hypodensities measuring up to 1.1 cm a nonspecific, likely cysts. Refer to recent 04/17/2022 CT for further details. Bones: [facility] in the lower thoracic spine. IMPRESSION: 1. Mild free air is seen scattered within the upper abdomen. Query bowel perforation versus recent pineda rgery. Appropriate follow-up recommended. 2. No evidence for metastatic disease in the chest. Areas of dependent atelectasis and additional ban dlike atelectasis at the left base.
[2023-02-26 10:52] LABS: Basophils # (A) 0.02 X 10*3/uL (0.00-0.10); Basophils % (A) 0.2 %; Eosinophils # (A) 0.36 X 10*3/uL (0.04-0.35); Eosinophils % (A) 4.3 %; HCT 37.1 % (39.6-50.0); HGB 11.3 g/dL (13.0-17.0); Lymphocytes # (A) 0.47 X 10*3/uL (0.90-5.00); Lymphocytes % (A) 5.5 %; MCH 25.2 pg (27.0-32.0); MCHC 30.5 g/dL (32.0-37.0); MCV 82.6 FL (80.0-97.0); Mean Platelet Volume 9.1 FL (9.5-12.2); Monocytes # (A) 0.71 X 10*3/uL (0.20-1.00); Monocytes % (A) 8.4 %; NRBC Per 100 WBC 0 X 10*3/uL (0.00-0.01); Neutrophils # (A) 6.86 X 10*3/uL (1.80-7.70); Platelet Count 385 X 10*3/uL (140-440); RBC 4.49 X 10*6/uL (4.40-5.60); RDW 13.4 % (11.5-14.5); WBC 8.47 X 10*3/uL (4.50-10.00)
[2023-02-26 12:20] LABS: Glucose,Whole Blood 105 mg/dL (70-110)
--- NOTE | 2023-02-26 13:01 | P.PN ---
Subjective Progress Note Date: 02/26/23 CHIEF COMPLAINT: Abdominal pain HISTORY OF PRESENT ILLNESS: Patient is postop day #8 status post exploratory laparotomy, sigmoid colectomy and small bowel resection for small bowel obstruction secondary to abdominal adhesion sigmoid colon mass with suspected perforation. Patient prince had no bowel movement or flatus. He did tolerate the broth yesterday. However it did cause some abdominal bloating. He denies any nausea or vomiting. He is scheduled for small bowel follow-through today. He was evaluated by oncology service yesterday and they had recommended adjuvant chemotherapy. Afebrile. WBC 8.47 Hgb 11.3 platelets 385 sodium is 137 potassium 4.5 creatinine 0.82. Patient has PICC line in place for his TPN Dr. Pedro covering for Dr. Isaac PHYSICAL EXAM: VITAL SIGNS: Reviewed. GENERAL: Well-developed in no acute distress. ABDOMEN: Soft. mildly distended. Incisional dressing clean, dry and intact. NEUROLOGIC: Alert and oriented. Cranial nerves II through XII grossly intact. ASSESSMENT: 1. Small bowel obstruction secondary to abdominal adhesion, sigmoid colon mass with suspected perforation status post exploratory laparotomy, sigmoid colectomy and small bowel resection 2. Colon adenocarcinoma PLAN: -Patient scheduled for small bowel follow-through series today -Keep patient nothing by mouth except for popsicles, ice chips and broth -Continue pain management. IV Tylenol added for pain -Encouraged patient to ambulate in hallway and chew gum -Continue TPN for nutrition support -Continue antibiotics per ID service -Encourage patient to ambulate -Continue Reglan 10 mg IV every 6 hours -Encourage patient to use incentive spirometer -DVT prophylaxis subcu heparin and GI prophylaxis Protonix Physician Telegraph Service Clerk note has been reviewed by physician. Signing provider agrees with the documented findings, assessment, and plan of care. Objective - Vital Signs Vital signs: Vital Signs Temp 98.2 F 02/26/23 07:00 Pulse 66 02/26/23 07:00 Resp 19 02/26/23 07:00 BP 145/73 02/26/23 07:00 Pulse Ox 99 02/26/23 07:00 FiO2 Intake & Output 02/25/23 02/26/23 02/26/23 18:59 06:59 18:59 Intake Total 667 Output Total 250 Balance 2017.667 -250 Intake: Intake, IV Titration 66 Amount Mvi, Adult No.4 with Vit 2018.667 K 10 ml Trace (Conc-1Ml/ Dose) 1 ml Sodium Chloride 4Meq/ml Vial 24 meq In Amino Acid 5%-D20w +Lytes*E* 1,000 ml @ 100 mls/hr IV .BY DURATION [facility] Rx#:[id number] Output: Urine 250 Other: Voiding Method Toilet Toilet Urinal Urinal # Voids 4 - Labs CBC & Chem 7: 02/26/23 05:47 02/26/23 05:47 Labs: Abnormal Lab Results - Last 24 Hours (Table) 02/25/23 02/26/23 Range/Units 23:57 05:47 Hgb 11.3 L (13.0-17.0) g/dL Hct 37.1 L (39.6-50.0) % MCH 25.2 L (27.0-32.0) pg MCHC 30.5 L (32.0-37.0) g/dL MPV 9.1 L (9.5-12.2) FL Lymphocytes # 0.47 L (0.90-5.00) X 10*3/uL Eosinophils # 0.36 H (0.04-0.35) X 10*3/uL POC Glucose (mg/dL) 131 H (70-110) mg/dL
--- NOTE | 2023-02-26 13:17 | P.PN ---
Subjective Progress Note Date: 02/26/23 Principal diagnosis: Perforated colon and peritonitis patient is a 42-year-old male with a past medical history significant for chronic back pain history of appendectomy presenting to the hospital for abdominal pain initial concern for small bowel obstruction fail medical therapy patient is status post laparotomy with evidence of possible perforated sigmoid tumor status post sigmoid colectomy. On today's evaluation that is 02/26/2023, the patient denies any fever or chills, the patient is breathing comfortably on room air and no need for any supplemental oxygen the patient denies chest pain shortness of breath or cough , patient denies nausea/vomiting, no abdominal pain, patient mentioned he continued to have burps but not passing any gas Patient white count is 8.47, creatinine 0.82, cultures are currently growing anaerobes Objective - Vital Signs Vital signs: Vital Signs Temp 98.2 F 02/26/23 07:00 Pulse 66 02/26/23 07:00 Resp 19 02/26/23 07:00 BP 145/73 02/26/23 07:00 Pulse Ox 99 02/26/23 07:00 FiO2 Intake & Output 02/25/23 02/26/23 02/26/23 18:59 06:59 18:59 Intake Total Output Total 250 Balance 7 -250 Intake: Intake, IV Titration Amount Mvi, Adult No.4 with Vit K 10 ml Trace (Conc-1Ml/ Dose) 1 ml Sodium Chloride 4Meq/ml Vial 24 meq In Amino Acid 5%-D20w +Lytes*E* 1,000 ml @ 100 mls/hr IV .BY DURATION [facility] Rx#:[id number] Output: Urine 250 Other: Voiding Method Toilet Toilet Urinal Urinal # Voids 4 - Exam GENERAL DESCRIPTION: A middle-age male up in the chair in no distress RESPIRATORY SYSTEM: Unlabored breathing , clear to auscultation anteriorly HEART: S1 S2 regular rate and rhythm , ABDOMEN: Soft , mild tenderness EXTREMITIES: No edema feet - Labs CBC & Chem 7: 02/26/23 05:47 02/26/23 05:47 Labs: Abnormal Lab Results - Last 24 Hours (Table) 02/25/23 02/26/23 Range/Units 23:57 05:47 Hgb 11.3 L (13.0-17.0) g/dL Hct 37.1 L (39.6-50.0) % MCH 25.2 L (27.0-32.0) pg MCHC 30.5 L (32.0-37.0) g/dL MPV 9.1 L (9.5-12.2) FL Lymphocytes # 0.47 L (0.90-5.00) X 10*3/uL Eosinophils # 0.36 H (0.04-0.35) X 10*3/uL POC Glucose (mg/dL) 131 H (70-110) mg/dL Assessment and Plan (1) Perforated sigmoid colon Current Visit: Yes Status: Acute Code(s): K63.1 - PERFORATION OF INTESTINE (NONTRAUMATIC) SNOMED Code(s): 297527634 (2) Peritonitis Current Visit: Yes Status: Acute Code(s): K65.9 - PERITONITIS, UNSPECIFIED SNOMED Code(s): 98137365 (3) Leukocytosis Current Visit: Yes Status: Acute Code(s): D72.829 - ELEVATED WHITE BLOOD CELL COUNT, UNSPECIFIED SNOMED Code(s): 477586080 Plan: 1patient presented to hospital with abdominal pain diagnosed with a small bowel obstruction in this patient who is status post laparotomy with suspected sigmoid colon tumor with perforation s/p sigmoid colectomy concerning for peritonitis will need to cover for the enteric gram-negative both aerobes and anaerobes 2-cultures has been obtained , currently growing anaerobes 3-patient remains to be afebrile and white count has been normal, patient will continue Zosyn 3.375 g every 8 hours and monitor clinical course closely right IJ has been discontinued Dictation was produced using [employer] dictation software. please excuse any grammatical, word or spelling errors. Time with Patient: Less than 30
--- NOTE | 2023-02-26 15:08 | XR ---
EXAMINATION TYPE: XR chest 1V portable DATE OF EXAM: 02/26/2023 3:03 PM CLINICAL INDICATION:Male, 42 years old with history of confirm tube placement; [facility] COMPARISON: Chest radiographs from 03/20/2023 TECHNIQUE: XR chest 1V portable Frontal view of the chest. FINDINGS: Lungs/Pleura: There is no evidence of pleural effusion, focal consolidation, or pneumothorax. Pulmonary vascularity: Unremarkable. Heart/mediastinum: Cardiomediastinal silhouette is unremarkable. Musculoskeletal: No acute osseous pathology. Other findings: Distended loops of bowel within the abdomen Lines/Tubes: Nasogastric tube with its distal tip and side-port projecting under the diaphragm. Left-sided PICC with distal tip at the superior vena cava/brachiocephalic confluence. IMPRESSION: 1. Nasogastric tube in appropriate position. 2. Left PICC in appropriate position. 3. Upper abdominal bowel loops concerning for small bowel obstruction.
[2023-02-26] MEDS: HYDROmorphone 1 MG/ML 1 ML SYRINGE IVP PRN (15:55)
--- NOTE | 2023-02-26 18:10 | P.PN ---
Subjective Progress Note Date: 02/26/23 Principal diagnosis: colon cancer, SBO At today's visit patient is resting comfortably in bed. Patient is reporting abdominal discomfort after drinking contrast for small bowel x-rays this morning. Denies nausea vomiting. Objective - Vital Signs Vital signs: Vital Signs Temp 98 F 02/26/23 17:26 Pulse 76 02/26/23 17:26 Resp 19 02/26/23 17:26 BP 147/84 02/26/23 17:26 Pulse Ox 96 02/26/23 17:26 FiO2 Intake & Output 02/25/23 02/26/23 02/26/23 18:59 06:59 18:59 Intake Total Output Total 250 Balance -250 Weight 108.862 kg Intake: Intake, IV Titration Amount Mvi, Adult No.4 with Vit K 10 ml Trace (Conc-1Ml/ Dose) 1 ml Sodium Chloride 4Meq/ml Vial 24 meq In Amino Acid 5%-D20w +Lytes*E* 1,000 ml @ 100 mls/hr IV .[facility] Rx#:[id number] Output: Urine 250 Other: Voiding Method Toilet Toilet Urinal Urinal # Voids 4 - Constitutional General appearance: Present: average body habitus, no acute distress - EENT Eyes: Present: anicteric sclerae, EOMI ENT: Present: hearing grossly normal - Respiratory Details: breathing is even and unlabored - Cardiovascular Details: skin warm and dry - Integumentary Integumentary: Absent: cyanotic - Neurologic Neurologic Comment(s): grossly intact - Musculoskeletal Musculoskeletal: Present: strength equal bilaterally - Psychiatric Psychiatric: Present: A&O x's 3 - Labs CBC & Chem 7: 02/26/23 05:47 02/26/23 05:47 Labs: Abnormal Lab Results - Last 24 Hours (Table) 02/25/23 02/26/23 Range/Units 23:57 05:47 Hgb 11.3 L (13.0-17.0) g/dL Hct 37.1 L (39.6-50.0) % MCH 25.2 L (27.0-32.0) pg MCHC 30.5 L (32.0-37.0) g/dL MPV 9.1 L (9.5-12.2) FL Lymphocytes # 0.47 L (0.90-5.00) X 10*3/uL Eosinophils # 0.36 H (0.04-0.35) X 10*3/uL POC Glucose (mg/dL) 131 H (70-110) mg/dL - Imaging and Cardiology CT scan - chest: report reviewed Assessment and Plan (1) Colon adenocarcinoma Current Visit: Yes Status: Acute Priority: High Code(s): C18.9 - MALIGNANT NEOPLASM OF COLON, UNSPECIFIED SNOMED Code(s): 206473275 (2) SBO (small bowel obstruction) Current Visit: Yes Status: Acute Priority: High Code(s): K56.609 - UNSP INTESTNL OBST, UNSP TO PARTIAL VERSUS COMPLETE OBST SNOMED Code(s): 639207435 (3) Anemia Current Visit: Yes Status: Acute Priority: Medium Code(s): D64.9 - ANEMIA, UNSPECIFIED SNOMED Code(s): 316641122 Plan: Newly diagnosed colon adenocarcinoma -Path report reviewed. Grade 2, 6.5cm tumor invading the musclari propria with perinural invasion, 05/11 LN +, no macroscopic tumor perforation, final pathological staging pT3 pN1a Mx-stage IIIA colon adenocarcinoma. BRAF V600E negative. -Recommended based on staging and pathology adjuvant chemotherapy to reduce the risk of recurrence. 6mo chemotherapy with FOLFOX regimen is the standard a djuvant regimen. No treatment would begin until pt has healed from surgery, which is typically 4-6 weeks -We discussed that pt age at diagnosis, children need to begin screening at age 33. -Recommended genetic testing for mcfadden syndrome -Tissue blocks will be requested to be sent for NGS testing -CT chest ordered to complete staging. Scan revealed no evidence for metastatic disease in the chest Pt and stated that they are not making any decision about doing treatment until they have had time to research everything. Clinic f/u will be scheduled upon discharge, so further discussion can be had regarding treatment options and goals of care Anemia: -Mild anemia noted. Hgb 11.3. MCV low end normal. With newly diagnosed colon adenocarcinoma and bowel surgery will order anemia workup to r/o underlying nutritional deficiencies. attests: I have seen and examined patient, performed H&P, developed impression and plan of care. Discussed with dictator. Agree with documentation, dictated as a scribe.
[2023-02-26 18:35] LABS: Glucose,Whole Blood 105 mg/dL (70-110)
[2023-02-26] MEDS: ACETAMINOPHEN IV (For NPO) 1,000 MG in EMPTY BAG 1 BAG IVPB SCH (18:39)
--- NOTE | 2023-02-26 21:35 | FL ---
EXAMINATION TYPE: FL small bowel follow through with Gastrografin DATE OF EXAM: 02/26/2023 CLINICAL HISTORY: 42-year-old male abdominal distention, small bowel obstruction TECHNIQUE: A single contrast small bowel follow through is performed utilizing Gastrografin. COMPARISON: CT abdomen 02/14/2023 and abdominal radiograph 02/24/2023 Total images: 13. Total fluoroscopy time: 9. Only serial portable radiographs were obtained. FINDINGS: [facility] image of the abdomen shows persistent diffusely distended bowel loops. Small bowel d ilated up to 7.7 cm. There seems to be some air within the right side of the colon. Imaging is performed up to 10 hours 35 minutes at which point some faint contrast enhancement is note d within what appears to be the right side of the colon. Cecum is distended up to 9.2 cm and ascendin g colon up to 6.5 cm. Anterior midline skin maria isabel from recent surgery. IMPRESSION: 1. Small bowel transit time of 10 hours 35 minutes. 2. Persistent diffusely dilated small bowel loops measuring up to 7.7 cm. 3. The right side of the colon also appears to be distended with the cecum 9.2 cm and ascending colon 6.5 cm.
--- NOTE | 2023-02-26 23:24 | P.PN ---
Subjective This is a 42 year old male with no significant medical history. He reports not having a bowel movement for over a week. On Wednesday he began having abdominal pain, lower quadrant coming and going and reported difficulty urinating. He feels bloated. He does report losing some weight also. Vomited once on Wednesday. He has history of appendectomy, no prior bowel obstruction. He denies fever, denies chills. No shortness of breath, no nausea vomiting or diarrhea. He has not had any change in his eating habits, no bloody stools or dark stools. He i nitially rated his pain about 8 or 9 out of 10 and now pain is about a 7 out of 10 after NG tube has been placed patient had 700 mL bilious output through NG tube. Computed tomography scan had shown evidence of small bowel obstruction. He does have positive bowel sounds and did have small bowel movement. White count 11.4 on admission, Sodium 136. Urinalsis negative. Indwelling catheter was placed for the retention with 1L of urine removed. Patient is admitted to the hospital with general surgery consultation for the small bowel obstruction. 02/16/2023 Patient evaluated today sitting up in bed. NG tube remains in place with bilious outpatient 350 mls in the last 24 hours. Patient did report having a small bowel movement today and abdominal pain has improved nontender now. CT enterography done showing wall thickening of the sigmoid colon in the left lower quadrant as seen in prior imaging there is submucosal hyperenhancement. Findings suggestive of active inflammation in the sigmoid colon and a loop of jejunumin in the mid abdomen wall and upstream dilation suggestive of partial obstruction given there is some fluid transition of the colon from prior exam on one day earlier. Corre late for Chron's. Patient on IV solumedrol and IV antibiotics. Surgery recommending to keep patient NPO. White blood cell count remains normal. 02/17/2023 Patient evaluated today resting in bed. Had a small BM today, non bloody. Abdominal pain continues to improve. Abdominal xray shows increased dilated small bowel loops. Clinically he is improving. Remains on IV steriods, IV antibiotics. 02/18/2023 Patient is evaluated today, he is sitting up. Had a small BM this AM but felt he was not passing stool, he described it as "scar tissue." Did not pass voiding trial, states he had an episode of urinary retention in the past due to an enlarged prostate. IDC was reinserted and pt has been started on flomax. He continues on IV steroids, IV flagyl and IV metronidazole. Abdominal xray today shows similar gasseous distention of bowel throughout the abdomen with nasogastric tube in place. 02/19/2023 This is a pleasant 42 years old male who presents with small bowel obstruction secondary to abdominal adhesions with sigmoid mass with possible perforation, status post exploratory laparotomy, sigmoid colectomy and small bowel resection. Today is postoperative day #1. Comfortable fully awake and oriented, abdominal pain this morning is 04/21. NG tube in place. No other new complaints no chest pain or dyspnea. His vitals stable. Has mild leukocytosis of 12.7 K. Currently covered with Zosyn normal saline 125 mL per hour 02/20/2023 Patient sitting up feels better, NG tube in place, abdominal pain is controlled Sigmoid biopsy still pending Patient is afebrile and vitals stable He remains on Zosyn, normal saline with 25 mm/h and TPN was started today 02/21/2023 pt is still wit NG Tube , he is npo he was started on TPN and he tolerates that well no or minimal abd pain and tenderness no bowel movement or passing gas yet 02/22/2023 Patient lying in bed comfortable, abdominal pain controlled Vitals stable RBC 10.0. Patient remains on normal saline 1 25 mL/h, TPN and Zosyn Reglan and Protonix were added today Surgery team are planning to discontinue Castillo catheter and epidural catheter 02/23/2023 Patient still has normal bowel movement, did not pass S although he has no abd ominal pain. NG tube was taken off. No vomiting. 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 Oncology team were consulted who recommended chemotherapy after wound healing and also CT of the chest for staging which is pending for now. And creatinine within the reference range 02/26/2023 Patient is not in distress he is calm no abdominal pain and abdomen looks soft No bowel movement, passing gas, he had a CAT scan of the chest today which showed no metastatic disease but possible mild free air in the upper abdomen suspicious for perforated viscus versus recent surgery. Surgery team on the case. Barium swallow through was ordered showing dilated small bowel loops. Also: His 9.2 and ascendin.5 cm Patient remains on normal saline and Zosyn and TPN Objective - Vital Signs Vital signs: Vital Signs Temp 98.1 F 02/26/23 20:07 Pulse 76 02/26/23 20:07 Resp 18 02/26/23 20:07 BP 136/82 02/26/23 20:07 Pulse Ox 96 02/26/23 20:07 FiO2 Intake & Output 02/26/23 02/26/23 02/27/23 06:59 18:59 06:59 Output Total 250 Balance -250 Weight 108.862 kg Output: Urine 250 Other: Voiding Method Toilet Urinal - Exam GENERAL: The patient is alert and oriented x3, not in any acute distress. Well developed, well nourished. HEENT: Pupils are round and equally reacting to light. EOMI. No scleral icterus. No conjunctival pallor. Normocephalic, atraumatic. No pharyngeal erythema. No thyromegaly. CARDIOVASCULAR: S1 and S2 present. No murmurs, rubs, or gallops. PULMONARY: Chest is clear to auscultation, no wheezing , no crackles. -ABDOMEN: Soft, nontender, nondistended, normoactive bowel sounds. No palpable organomegaly. Surgical wound with dressing in place rest of exam was deferred to surgery team MUSCULOSKELETAL: No joint swelling or deformity. EXTREMITIES: No cyanosis, clubbing, or pedal edema. NEUROLOGICAL: Gross neurological examination did not reveal any focal deficits. SKIN: No rashes. no petechiae. - Labs CBC & Chem 7: 02/26/23 05:47 02/26/23 05:47 Labs: Abnormal Lab Results - Last 24 Hours (Table) 02/25/23 02/26/23 Range/Units 23:57 05:47 Hgb 11.3 L (13.0-17.0) g/dL Hct 37.1 L (39.6-50.0) % MCH 25.2 L (27.0-32.0) pg MCHC 30.5 L (32.0-37.0) g/dL MPV 9.1 L (9.5-12.2) FL Lymphocytes # 0.47 L (0.90-5.00) X 10*3/uL Eosinophils # 0.36 H (0.04-0.35) X 10*3/uL POC Glucose (mg/dL) 131 H (70-110) mg/dL Assessment and Plan Assessment: Adenocarcinoma, of the sigmoid colon status post surgical resection Partial small bowel obstruction secondary to adhesions with sigmoid mass with possible perforation status post sigmoid colectomy and small bowel resection on 02/18 Adenocarcinoma of the sigmoid colon, new diagnosis intra-abdominal infection Urinary retention secondary to above History of appendectomy Plan: Continue with Zosyn Oncology consult Patient is started on TPN Pain management, currently pain controlled Surgical team consult infectious disease team on the case. Labs and medication were reviewed.. Continue same treatment. Continue with symptomatic treatment. Resume home medication. Monitor labs and vitals. DVT and GI prophylaxis. Further recommendations as per clinical course of the patient DVT prophylaxis: Subcutaneous heparin GI Prophylaxis: Pepcid Prognosis is guarded
[2023-02-27 00:06] LABS: Glucose,Whole Blood 137 mg/dL (70-110)
[2023-02-27 03:04] LABS: % Iron Saturation 16.85 (15.00-50.00)
[2023-02-27 04:56] LABS: African American GFR (CKD) >90 (>60 ml/min/1.73 sqM); Anion Gap 6 mmol/L; Blood Urea Nitrogen 16 mg/dL (9-20); Calcium 8.7 mg/dL (8.4-10.2); Carbon Dioxide 27 mmol/L (22-30); Chloride 102 mmol/L (98-107); Glucose 138 mg/dL (74-99); Non-African American GFR(CKD) >90 (>60 ml/min/1.73 sqM); Phosphorus 3.8 mg/dL (2.5-4.5); Potassium 3.7 mmol/L (3.5-5.1); Sodium 135 mmol/L (137-145)
[2023-02-27 05:17] LABS: Glucose,Whole Blood 123 mg/dL (70-110)
[2023-02-27 11:36] LABS: Glucose,Whole Blood 112 mg/dL (70-110)
[2023-02-27] MEDS: POTASSIUM CHLORIDE 10 MEQ in WATER FOR INJECTION 1 100ML.BAG IVPB SCH (12:15)
[2023-02-27 16:42] LABS: Glucose,Whole Blood 115 mg/dL (70-110)
--- NOTE | 2023-02-27 19:27 | P.PN ---
Subjective This is a 42 year old male with no significant medical history. He reports not having a bowel movement for over a week. On Wednesday he began having abdominal pain, lower quadrant coming and going and reported difficulty urinating. He feels bloated. He does report losing some weight also. Vomited once on Wednesday. He has history of appendectomy, no prior bowel obstruction. He denies fever, denies chills. No shortness of breath, no nausea vomiting or diarrhea. He has not had any change in his eating habits, no bloody stools or dark stools. He i nitially rated his pain about 8 or 9 out of 10 and now pain is about a 7 out of 10 after NG tube has been placed patient had 700 mL bilious output through NG tube. Computed tomography scan had shown evidence of small bowel obstruction. He does have positive bowel sounds and did have small bowel movement. White count 11.4 on admission, Sodium 136. Urinalsis negative. Indwelling catheter was placed for the retention with 1L of urine removed. Patient is admitted to the hospital with general surgery consultation for the small bowel obstruction. 02/16/2023 Patient evaluated today sitting up in bed. NG tube remains in place with bilious outpatient 350 mls in the last 24 hours. Patient did report having a small bowel movement today and abdominal pain has improved nontender now. CT enterography done showing wall thickening of the sigmoid colon in the left lower quadrant as seen in prior imaging there is submucosal hyperenhancement. Findings suggestive of active inflammation in the sigmoid colon and a loop of jejunumin in the mid abdomen wall and upstream dilation suggestive of partial obstruction given there is some fluid transition of the colon from prior exam on one day earlier. Corre late for Chron's. Patient on IV solumedrol and IV antibiotics. Surgery recommending to keep patient NPO. White blood cell count remains normal. 02/17/2023 Patient evaluated today resting in bed. Had a small BM today, non bloody. Abdominal pain continues to improve. Abdominal xray shows increased dilated small bowel loops. Clinically he is improving. Remains on IV steriods, IV antibiotics. 02/18/2023 Patient is evaluated today, he is sitting up. Had a small BM this AM but felt he was not passing stool, he described it as "scar tissue." Did not pass voiding trial, states he had an episode of urinary retention in the past due to an enlarged prostate. IDC was reinserted and pt has been started on flomax. He continues on IV steroids, IV flagyl and IV metronidazole. Abdominal xray today shows similar gasseous distention of bowel throughout the abdomen with nasogastric tube in place. 02/19/2023 This is a pleasant 42 years old male who presents with small bowel obstruction secondary to abdominal adhesions with sigmoid mass with possible perforation, status post exploratory laparotomy, sigmoid colectomy and small bowel resection. Today is postoperative day #1. Comfortable fully awake and oriented, abdominal pain this morning is 04/21. NG tube in place. No other new complaints no chest pain or dyspnea. His vitals stable. Has mild leukocytosis of 12.7 K. Currently covered with Zosyn normal saline 125 mL per hour 02/20/2023 Patient sitting up feels better, NG tube in place, abdominal pain is controlled Sigmoid biopsy still pending Patient is afebrile and vitals stable He remains on Zosyn, normal saline with 25 mm/h and TPN was started today 02/21/2023 pt is still wit NG Tube , he is npo he was started on TPN and he tolerates that well no or minimal abd pain and tenderness no bowel movement or passing gas yet 02/22/2023 Patient lying in bed comfortable, abdominal pain controlled Vitals stable RBC 10.0. Patient remains on normal saline 1 25 mL/h, TPN and Zosyn Reglan and Protonix were added today Surgery team are planning to discontinue Castillo catheter and epidural catheter 02/23/2023 Patient still has normal bowel movement, did not pass S although he has no abd ominal pain. NG tube was taken off. No vomiting. 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 Oncology team were consulted who recommended chemotherapy after wound healing and also CT of the chest for staging which is pending for now. And creatinine within the reference range 02/26/2023 Patient is not in distress he is calm no abdominal pain and abdomen looks soft No bowel movement, passing gas, he had a CAT scan of the chest today which showed no metastatic disease but possible mild free air in the upper abdomen suspicious for perforated viscus versus recent surgery. Surgery team on the case. Barium swallow through was ordered showing dilated small bowel loops. Also: His 9.2 and ascendin.5 cm Patient remains on normal saline and Zosyn and TPN 02/27/1944 Patient yesterday and last night his became more distended without worsening pain or tenderness and after NG tube placement this morning his distention significantly came down. Patient reports having green bowel movement this morning Procedure replaced back. Patient remains on normal saline 1 25 mL/h, TPN, Zosyn [employer] Technician/oncologist team on the case for possible chemotherapy surgical problem Objective - Vital Signs Vital signs: Vital Signs Temp 97.7 F 02/27/23 12:56 Pulse 67 02/27/23 12:56 Resp 19 02/27/23 12:56 BP 128/76 02/27/23 12:56 Pulse Ox 98 02/27/23 12:56 FiO2 Intake & Output 02/27/23 02/27/23 02/28/23 06:59 18:59 06:59 Intake Total 1006 Output Total 700 500 Balance -700 506 Intake: Intake, IV Titration 1006 Amount Sodium Chloride 4Meq/ml 1006 Vial 24 meq In Amino Acid 5%-D20w+Lytes*E* 1,000 ml @ 100 mls/hr IV .[facility] Rx#: [id number] Output: Gastric Drainage 400 Urine 700 100 Other: Voiding Method Indwelling Catheter # Voids 3 # Bowel Movements 1 - Exam GENERAL: The patient is alert and oriented x3, not in any acute distress. Well developed, well nourished. HEENT: Pupils are round and equally reacting to light. EOMI. No scleral icterus. No conjunctival pallor. Normocephalic, atraumatic. No pharyngeal erythema. No thyromegaly. CARDIOVASCULAR: S1 and S2 present. No murmurs, rubs, or gallops. PULMONARY: Chest is clear to auscultation, no wheezing , no crackles. -ABDOMEN: Soft, nontender, nondistended, normoactive bowel sounds. No palpable organomegaly. Surgical wound with dressing in place rest of exam was deferred to surgery team MUSCULOSKELETAL: No joint swelling or deformity. EXTREMITIES: No cyanosis, clubbing, or pedal edema. NEUROLOGICAL: Gross neurological examination did not reveal any focal deficits. SKIN: No rashes. no petechiae. - Labs CBC & Chem 7: 02/26/23 05:47 02/27/23 03:30 Labs: Abnormal Lab Results - Last 24 Hours (Table) 02/26/23 02/27/23 02/27/23 Range/Units 15:52 00:05 03:30 Sodium 135 L (137-145) mmol/L Glucose 138 H (74-99) mg/dL POC Glucose (mg/dL) 137 H (70-110) mg/dL Iron 46 L (65-175) UG/DL Transferrin 195.0 L (204.0-354.0) mg/dL 02/27/23 02/27/23 02/27/23 Range/Units 05:14 11:35 16:41 Sodium (137-145) mmol/L Glucose (74-99) mg/dL POC Glucose (mg/dL) 123 H 112 H 115 H (70-110) mg/dL Iron (65-175) UG/DL Transferrin (204.0-354.0) mg/dL Assessment and Plan Assessment: Adenocarcinoma, of the sigmoid colon status post surgical resection Partial small bowel obstruction secondary to adhesions with sigmoid mass with possible perforation status post sigmoid colectomy and small bowel resection on 02/18 Adenocarcinoma of the sigmoid colon, new diagnosis intra-abdominal infection Urinary retention secondary to above History of appendectomy Plan: Continue with Zosyn Oncology consult Patient is started on TPN Pain management, currently pain controlled Surgical team consult infectious disease team on the case. Labs and medication were reviewed.. Continue same treatment. Continue with symptomatic treatment. Resume home medication. Monitor labs and vitals. DVT and GI prophylaxis. Further recommendations as per clinical course of the patient DVT prophylaxis: Subcutaneous heparin GI Prophylaxis: Pepcid Prognosis is guarded
--- NOTE | 2023-02-27 19:35 | P.PN ---
Subjective Progress Note Date: 02/27/23 Principal diagnosis: Perforated colon and peritonitis patient is a 42-year-old male with a past medical history significant for chronic back pain history of appendectomy presenting to the hospital for abdominal pain initial concern for small bowel obstruction fail medical therapy patient is status post laparotomy with evidence of possible perforated sigmoid tumor status post sigmoid colectomy. On today's evaluation that is 02/27/2023, the patient remains to be afebrile, the patient is breathing comfortably on room air, the patient denies shortness of breath, chest pain and no cough , patient did have worsening abdominal pain after he drank contrast for abdominal series , NG has been reinserted , no further vomiting and abdominal pain has decreased in intensity Patient white count is 8.47 as of yesterday, creatinine 0.77, cultures are currently growing anaerobes , abdominal series with small and large bowl observation Objective - Vital Signs Vital signs: Vital Signs Temp 98.0 F 02/27/23 07:33 Pulse 64 02/27/23 07:33 Resp 20 02/27/23 07:33 BP 135/76 02/27/23 07:33 Pulse Ox 97 02/27/23 07:33 FiO2 Intake & Output 02/26/23 02/27/23 02/27/23 18:59 06:59 18:59 Intake Total 1017 Output Total 1050 700 100 Balance -33 -700 -100 Weight 108.862 kg Intake: Intake, IV Titration 1017 Amount Mvi, Adult No.4 with Vit 1017 K 10 ml Trace (Conc-1Ml/ Dose) 1 ml Sodium Chloride 4Meq/ml Vial 24 meq In Amino Acid 5%-D20w +Lytes*E* 1,000 ml @ 100 mls/hr IV .BY DURATION [facility] Rx#:[id number] Output: Urine 300 700 100 Emesis 750 Other: Voiding Method Indwelling Catheter # Voids 1 # Bowel Movements 1 - Exam GENERAL DESCRIPTION: A middle-age male up in the chair in no distress RESPIRATORY SYSTEM: Unlabored breathing , clear to auscultation anteriorly HEART: S1 S2 regular rate and rhythm , ABDOMEN: Soft , mild tenderness EXTREMITIES: No edema feet - Labs CBC & Chem 7: 02/26/23 05:47 02/27/23 03:30 Labs: Abnormal Lab Results - Last 24 Hours (Table) 1102/27/23 02/27/23 Range/Units 15:52 00:05 03:30 Sodium 135 L (137-145) mmol/L Glucose 138 H (74-99) mg/dL POC Glucose (mg/dL) 137 H (70-110) mg/dL Iron 46 L (65-175) UG/DL Transferrin 195.0 L (204.0-354.0) mg/dL 02/27/23 02/27/23 Range/Units 05:14 11:35 Sodium (137-145) mmol/L Glucose (74-99) mg/dL POC Glucose (mg/dL) 123 H 112 H (70-110) mg/dL Iron (65-175) UG/DL Transferrin (204.0-354.0) mg/dL Assessment and Plan (1) Perforated sigmoid colon Current Visit: Yes Status: Acute Code(s): K63.1 - PERFORATION OF INTESTINE (NONTRAUMATIC) SNOMED Code(s): 941364407 (2) Peritonitis Current Visit: Yes Status: Acute Code(s): K65.9 - PERITONITIS, UNSPECIFIED SNOMED Code(s): 80567133 (3) Leukocytosis Current Visit: Yes Status: Acute Code(s): D72.829 - ELEVATED WHITE BLOOD CELL COUNT, UNSPECIFIED SNOMED Code(s): 368441512 Plan: 1patient presented to hospital with abdominal pain diagnosed with a small bowel obstruction in this patient who is status post laparotomy with suspected sigmoid colon tumor with perforation s/p sigmoid colectomy concerning for peritonitis will need to cover for the enteric gram-negative both aerobes and anaerobes 2-cultures has been obtained , currently growing anaerobes 3-patient remains to be afebrile and white count has been normal,did have evidence of bowl obstruction pattern on abdominal series , Surgery is following the patient will continue Zosyn 3.375 g every 8 hours and monitor clinical course closely Dictation was produced using [employer] dictation software. please excuse any grammatical, word or spelling errors. Time with Patient: Less than 30
[2023-02-27 23:56] LABS: Glucose,Whole Blood 125 mg/dL (70-110)
[2023-02-28 05:31] LABS: African American GFR (CKD) >90 (>60 ml/min/1.73 sqM); Anion Gap 7 mmol/L; Blood Urea Nitrogen 15 mg/dL (9-20); Calcium 8.8 mg/dL (8.4-10.2); Carbon Dioxide 26 mmol/L (22-30); Chloride 103 mmol/L (98-107); Glucose 110 mg/dL (74-99); Magnesium 1.9 mg/dL (1.6-2.3); Non-African American GFR(CKD) >90 (>60 ml/min/1.73 sqM); Phosphorus 3.8 mg/dL (2.5-4.5); Potassium 4.1 mmol/L (3.5-5.1); Sodium 136 mmol/L (137-145)
[2023-02-28 05:51] LABS: Glucose,Whole Blood 117 mg/dL (70-110)
--- NOTE | 2023-02-28 10:07 | P.PN ---
Subjective This is a 42 year old male with no significant medical history. He reports not having a bowel movement for over a week. On Wednesday he began having abdominal pain, lower quadrant coming and going and reported difficulty urinating. He feels bloated. He does report losing some weight also. Vomited once on Wednesday. He has history of appendectomy, no prior bowel obstruction. He denies fever, denies chills. No shortness of breath, no nausea vomiting or diarrhea. He has not had any change in his eating habits, no bloody stools or dark stools. He i nitially rated his pain about 8 or 9 out of 10 and now pain is about a 7 out of 10 after NG tube has been placed patient had 700 mL bilious output through NG tube. Computed tomography scan had shown evidence of small bowel obstruction. He does have positive bowel sounds and did have small bowel movement. White count 11.4 on admission, Sodium 136. Urinalsis negative. Indwelling catheter was placed for the retention with 1L of urine removed. Patient is admitted to the hospital with general surgery consultation for the small bowel obstruction. 02/16/2023 Patient evaluated today sitting up in bed. NG tube remains in place with bilious outpatient 350 mls in the last 24 hours. Patient did report having a small bowel movement today and abdominal pain has improved nontender now. CT enterography done showing wall thickening of the sigmoid colon in the left lower quadrant as seen in prior imaging there is submucosal hyperenhancement. Findings suggestive of active inflammation in the sigmoid colon and a loop of jejunumin in the mid abdomen wall and upstream dilation suggestive of partial obstruction given there is some fluid transition of the colon from prior exam on one day earlier. Corre late for Chron's. Patient on IV solumedrol and IV antibiotics. Surgery recommending to keep patient NPO. White blood cell count remains normal. 02/17/2023 Patient evaluated today resting in bed. Had a small BM today, non bloody. Abdominal pain continues to improve. Abdominal xray shows increased dilated small bowel loops. Clinically he is improving. Remains on IV steriods, IV antibiotics. 02/18/2023 Patient is evaluated today, he is sitting up. Had a small BM this AM but felt he was not passing stool, he described it as "scar tissue." Did not pass voiding trial, states he had an episode of urinary retention in the past due to an enlarged prostate. IDC was reinserted and pt has been started on flomax. He continues on IV steroids, IV flagyl and IV metronidazole. Abdominal xray today shows similar gasseous distention of bowel throughout the abdomen with nasogastric tube in place. 02/19/2023 This is a pleasant 42 years old male who presents with small bowel obstruction secondary to abdominal adhesions with sigmoid mass with possible perforation, status post exploratory laparotomy, sigmoid colectomy and small bowel resection. Today is postoperative day #1. Comfortable fully awake and oriented, abdominal pain this morning is 04/21. NG tube in place. No other new complaints no chest pain or dyspnea. His vitals stable. Has mild leukocytosis of 12.7 K. Currently covered with Zosyn normal saline 125 mL per hour 02/20/2023 Patient sitting up feels better, NG tube in place, abdominal pain is controlled Sigmoid biopsy still pending Patient is afebrile and vitals stable He remains on Zosyn, normal saline with 25 mm/h and TPN was started today 02/21/2023 pt is still wit NG Tube , he is npo he was started on TPN and he tolerates that well no or minimal abd pain and tenderness no bowel movement or passing gas yet 02/22/2023 Patient lying in bed comfortable, abdominal pain controlled Vitals stable RBC 10.0. Patient remains on normal saline 1 25 mL/h, TPN and Zosyn Reglan and Protonix were added today Surgery team are planning to discontinue Castillo catheter and epidural catheter 02/23/2023 Patient still has normal bowel movement, did not pass S although he has no abd ominal pain. NG tube was taken off. No vomiting. 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 Oncology team were consulted who recommended chemotherapy after wound healing and also CT of the chest for staging which is pending for now. And creatinine within the reference range 02/26/2023 Patient is not in distress he is calm no abdominal pain and abdomen looks soft No bowel movement, passing gas, he had a CAT scan of the chest today which showed no metastatic disease but possible mild free air in the upper abdomen suspicious for perforated viscus versus recent surgery. Surgery team on the case. Barium swallow through was ordered showing dilated small bowel loops. Also: His 9.2 and ascendin.5 cm Patient remains on normal saline and Zosyn and TPN 02/27/1944 Patient yesterday and last night his became more distended without worsening pain or tenderness and after NG tube placement this morning his distention significantly came down. Patient reports having green bowel movement this morning Procedure replaced back. Patient remains on normal saline 1 25 mL/h, TPN, Zosyn Finishing Supervisor Plastic Sheets/oncologist team on the case for possible chemotherapy surgical problem 02/28/2023 Patient still with NG tube in place. And reports significant improvement today after had several bowel movement of green coloration since yesterday, he said yesterday he could not counts many times but this morning already has a twice greenish bowel movements No abdominal pain or tenderness. Patient remains on Zosyn, normal saline 1 25 mL/h Continue with TPN Objective - Vital Signs Vital signs: Vital Signs Temp 97.3 F L 02/28/23 07:17 Pulse 71 02/28/23 07:17 Resp 20 02/28/23 07:17 BP 138/80 02/28/23 07:17 Pulse Ox 97 02/28/23 07:17 FiO2 Intake & Output 02/27/23 02/28/23 02/28/23 18:59 06:59 18:59 Intake Total 2022 1700 Output Total 500 320 Balance 1523 1380 Intake: Intake, IV Titration 2022 1700 Amount Mvi, Adult No.4 with Vit 1017 K 10 ml Trace (Conc-1Ml/ Dose) 1 ml Sodium Chloride 4Meq/ml Vial 24 meq In Amino Acid 5%-D20w +Lytes*E* 1,000 ml @ 100 mls/hr IV .BY DURATION [facility] Rx#:[id number] Piperacillin-Tazobactam 3 100 .375 gm In Sodium Chloride 0.9% 100 ml @ 25 mls/hr IVPB Q8HR [facility] Rx# :[id number] Sodium Chloride 0.9% 1, 1500 000 ml @ 125 mls/hr IV . Q8H [facility] Rx#:[id number] Sodium Chloride 4Meq/ml 1006 Vial 24 meq In Amino Acid 5%-D20w+Lytes*E* 1,000 ml @ 100 mls/hr IV .BY DURATION [facility] Rx#: [id number] metroNIDAZOLE-NS PMX 500 100 mg In Saline 1 100ml.bag @ 100 mls/hr IVPB Q8HR [facility] Rx#:[id number] Output: Gastric Drainage 400 320 Urine 100 Other: # Voids 3 - Exam GENERAL: The patient is alert and oriented x3, not in any acute distress. Well developed, well nourished. HEENT: Pupils are round and equally reacting to light. EOMI. No scleral icterus. No conjunctival pallor. Normocephalic, atraumatic. No pharyngeal erythema. No thyromegaly. CARDIOVASCULAR: S1 and S2 present. No murmurs, rubs, or gallops. PULMONARY: Chest is clear to auscultation, no wheezing , no crackles. -ABDOMEN: Soft, nontender, nondistended, normoactive bowel sounds. No palpable organomegaly. Surgical wound with dressing in place rest of exam was deferred to surgery team MUSCULOSKELETAL: No joint swelling or deformity. EXTREMITIES: No cyanosis, clubbing, or pedal edema. NEUROLOGICAL: Gross neurological examination did not reveal any focal deficits. SKIN: No rashes. no petechiae. - Labs CBC & Chem 7: 02/26/23 05:47 02/28/23 04:39 Labs: Abnormal Lab Results - Last 24 Hours (Table) 02/27/23 02/27/23 02/27/23 Range/Units 11:35 16:41 23:53 Sodium (137-145) mmol/L Glucose (74-99) mg/dL POC Glucose (mg/dL) 112 H 115 H 125 H (70-110) mg/dL 02/28/23 02/28/23 Range/Units 04:39 05:50 Sodium 136 L (137-145) mmol/L Glucose 110 H (74-99) mg/dL POC Glucose (mg/dL) 117 H (70-110) mg/dL Assessment and Plan Assessment: Adenocarcinoma, of the sigmoid colon status post surgical resection Partial small bowel obstruction secondary to adhesions with sigmoid mass with possible perforation status post sigmoid colectomy and small bowel resection on 02/18 Adenocarcinoma of the sigmoid colon, new diagnosis intra-abdominal infection Urinary retention secondary to above History of appendectomy Plan: Continue with Zosyn Oncology consult Patient is started on TPN Pain management, currently pain controlled Surgical team consult infectious disease team on the case. Oncology team evaluated the patient Labs and medication were reviewed.. Continue same treatment. Continue with symptomatic treatment. Resume home medication. Monitor labs and vitals. DVT and GI prophylaxis. Further recommendations as per clinical course of the patient DVT prophylaxis: Subcutaneous heparin GI Prophylaxis: Pepcid Prognosis is guarded
--- NOTE | 2023-02-28 10:08 | P.PN ---
Progress Note - Text Progress Note Date: 02/28/23 Patient feels better today. He is had some flatus. On exam vital signs appear stable. Abdomen soft. Status post colon resection with prolonged postoperative ileus. Patient is having flatus. We will start clear liquids.
[2023-02-28 11:25] LABS: Glucose,Whole Blood 114 mg/dL (70-110)
--- NOTE | 2023-02-28 12:09 | P.PN ---
Subjective Progress Note Date: 02/28/23 Principal diagnosis: Perforated colon and peritonitis patient is a 42-year-old male with a past medical history significant for chronic back pain history of appendectomy presenting to the hospital for abdominal pain initial concern for small bowel obstruction fail medical therapy patient is status post laparotomy with evidence of possible perforated sigmoid tumor status post sigmoid colectomy. On today's evaluation that is 02/28/2023, the patient continues to be afebrile, the patient is breathing comfortably on room air and no need for supplemental oxygen, the patient denies chest pain shortness of breath or cough , patient denies any further nausea vomiting the patient had multiple bowel movements since yesterday and NG has been discontinued Patient white count is 8.47 as of 02/26/2023, creatinine is 0.74, cultures are currently growing anaerobes , abdominal series with small and large bowl observation Objective - Vital Signs Vital signs: Vital Signs Temp 97.3 F L 02/28/23 07:17 Pulse 71 02/28/23 07:17 Resp 20 02/28/23 07:17 BP 138/80 02/28/23 07:17 Pulse Ox 97 02/28/23 07:17 FiO2 Intake & Output 02/27/23 02/28/23 02/28/23 18:59 06:59 18:59 Intake Total 2022 1700 Output Total 500 320 Balance 1523 1380 Intake: Intake, IV Titration 2022 1700 Amount Mvi, Adult No.4 with Vit 1017 K 10 ml Trace (Conc-1Ml/ Dose) 1 ml Sodium Chloride 4Meq/ml Vial 24 meq In Amino Acid 5%-D20w +Lytes*E* 1,000 ml @ 100 mls/hr IV .BY DURATION [facility] Rx#:[id number] Piperacillin-Tazobactam 3 100 .375 gm In Sodium Chloride 0.9% 100 ml @ 25 mls/hr IVPB Q8HR [facility] Rx# :[id number] Sodium Chloride 0.9% 1, 1500 000 ml @ 125 mls/hr IV . Q8H [facility] Rx#:[id number] Sodium Chloride 4Meq/ml 1006 Vial 24 meq In Amino Acid 5%-D20w+Lytes*E* 1,000 ml @ 100 mls/hr IV .BY DURATION [facility] Rx#: [id number] metroNIDAZOLE-NS PMX 500 100 mg In Saline 1 100ml.bag @ 100 mls/hr IVPB Q8HR [facility] Rx#:[id number] Output: Gastric Drainage 400 320 Urine 100 Other: # Voids 3 - Exam GENERAL DESCRIPTION: A middle-age male up in the chair in no distress RESPIRATORY SYSTEM: Unlabored breathing , clear to auscultation anteriorly HEART: S1 S2 regular rate and rhythm , ABDOMEN: Soft , mild tenderness EXTREMITIES: No edema feet - Labs CBC & Chem 7: 02/26/23 05:47 02/28/23 04:39 Labs: Abnormal Lab Results - Last 24 Hours (Table) 02/27/23 02/27/23 02/28/23 Range/Units 16:41 23:53 04:39 Sodium 136 L (137-145) mmol/L Glucose 110 H (74-99) mg/dL POC Glucose (mg/dL) 115 H 125 H (70-110) mg/dL 02/28/23 02/28/23 Range/Units 05:50 11:24 Sodium (137-145) mmol/L Glucose (74-99) mg/dL POC Glucose (mg/dL) 117 H 114 H (70-110) mg/dL Assessment and Plan (1) Perforated sigmoid colon Current Visit: Yes Status: Acute Code(s): K63.1 - PERFORATION OF INTESTINE (NONTRAUMATIC) SNOMED Code(s): 356889175 (2) Peritonitis Current Visit: Yes Status: Acute Code(s): K65.9 - PERITONITIS, UNSPECIFIED SNOMED Code(s): 37073150 (3) Leukocytosis Current Visit: Yes Status: Acute Code(s): D72.829 - ELEVATED WHITE BLOOD CELL COUNT, UNSPECIFIED SNOMED Code(s): 872635583 Plan: 1patient presented to hospital with abdominal pain diagnosed with a small bowel obstruction in this patient who is status post laparotomy with suspected sigmoid colon tumor with perforation s/p sigmoid colectomy concerning for peritonitis will need to cover for the enteric gram-negative both aerobes and anaerobes 2-cultures has been obtained , currently growing anaerobes 3-patient remains to be afebrile and white count has been normal 4-patient seemed to have shown clinical improvement, we will continue Zosyn 3.375 g every 8 hours and monitor clinical course closely Dictation was produced using dragon dictation software. please excuse any grammatical, word or spelling errors. Time with Patient: Less than 30
[2023-02-28 16:25] LABS: Glucose,Whole Blood 122 mg/dL (70-110)
[2023-02-28 19:24] LABS: Glucose,Whole Blood 110 mg/dL (70-110)
[2023-03-01 00:20] LABS: Glucose,Whole Blood 132 mg/dL (70-110)
[2023-03-01 06:01] LABS: Glucose,Whole Blood 139 mg/dL (70-110)
[2023-03-01 06:34] LABS: African American GFR (CKD) >90 (>60 ml/min/1.73 sqM); Anion Gap 8 mmol/L; Blood Urea Nitrogen 13 mg/dL (9-20); Calcium 8.8 mg/dL (8.4-10.2); Carbon Dioxide 25 mmol/L (22-30); Chloride 102 mmol/L (98-107); Glucose 128 mg/dL (74-99); Magnesium 1.9 mg/dL (1.6-2.3); Non-African American GFR(CKD) >90 (>60 ml/min/1.73 sqM); Phosphorus 3.9 mg/dL (2.5-4.5); Potassium 4.1 mmol/L (3.5-5.1); Sodium 135 mmol/L (137-145)
--- NOTE | 2023-03-01 08:54 | XR ---
EXAMINATION TYPE: XR abdomen 2V DATE OF EXAM: 03/01/2023 HISTORY: Pain. Technique: 3 views of the abdomen are submitted. Comparison: None. Findings: Again noted is dilatation of small and large bowel with scattered air-fluid levels measuring up to 5 cm versus 5.8 cm previously. Retained contrast is noted. Postoperative ileus again is suspected. No sizable air-fluid levels are seen. No mass effects are noted. No renal calcifications are identified. IMPRESSION: 1. Minimally improved features of postoperative ileus. Continued progress studies are advised.
[2023-03-01] MEDS ORDERED: HYDROcodone/APAP 5-325MG 1 EACH TAB PO PRN (10:54)
[2023-03-01 11:35] LABS: Glucose,Whole Blood 119 mg/dL (70-110)
--- NOTE | 2023-03-01 11:44 | P.PN ---
Subjective Progress Note Date: 03/02/23 CHIEF COMPLAINT: Abdominal pain HISTORY OF PRESENT ILLNESS: Patient is postop day #11 status post exploratory laparotomy, sigmoid colectomy and small bowel resection for small bowel obstruction secondary to abdominal adhesion sigmoid colon mass with suspected perforation. Patient has minimal pain at the incision site. He is now having bowel movements. Denies any nausea or vomiting. Abdominal x-ray reports minimally improved features of postoperative ileus. Afebrile. PHYSICAL EXAM: VITAL SIGNS: Reviewed. GENERAL: Well-developed in no acute distress. ABDOMEN: Soft. mildly distended. Incisional dressing clean, dry and intact. NEUROLOGIC: Alert and oriented. Cranial nerves II through XII grossly intact. ASSESSMENT: 1. Small bowel obstruction secondary to abdominal adhesion, sigmoid colon mass with suspected perforation status post exploratory laparotomy, sigmoid colectomy and small bowel resection 2. Colon adenocarcinoma PLAN: -Advance diet to clear liquids -Continue pain management. Oral Tylenol and Garland added for pain management -Encouraged patient to ambulate in hallway -Continue TPN for nutrition support -Continue antibiotics per ID service -Encourage patient to ambulate -Continue Reglan 10 mg IV every 6 hours -Encourage patient to use incentive spirometer -DVT prophylaxis subcu heparin and GI prophylaxis Protonix Physician Detail Technician note has been reviewed by physician. Signing provider agrees with the documented findings, assessment, and plan of care. I have personally seen and examined the patient, reviewed the DIE MAKER APPRENTICE /PAs history, exam and MDM and agree with the assessment and plan as written. Based on total visit time, I have performed more than 50% of the visit. As above: Progress notes and studies from the last week were reviewed. Based on persistent small bowel dilation I ordered a repeat abdominal x-ray today. Small bowel dilation somewhat improved. Contrast is seen in the colon. The descending colon is not distended. Ileus versus PSBO still difficult to say with certainty. Patient states he does feel better today. He has no pain c urrently. No nausea this morning. He is passing flatus and small amount of liquid bile stool. Will begin clear liquids. If patient fails trial of diet Will order CT abdomen and pelvis. Case discussed in detail with the patient and also I called his by phone. Pathology findings discussed as well. Appreciate oncologic input. Continue TPN for now. Objective - Vital Signs Vital signs: Vital Signs Temp 97.8 F 03/01/23 06:48 Pulse 56 L 03/01/23 06:48 Resp 17 03/01/23 06:48 BP 130/77 03/01/23 06:48 Pulse Ox 98 03/01/23 06:48 FiO2 Intake & Output 02/28/23 03/01/23 03/01/23 18:59 06:59 18:59 Intake Total 1017 1006 Balance 1017 1006 Intake: Intake, IV Titration 1017 1006 Amount Mvi, Adult No.4 with Vit 1017 K 10 ml Trace (Conc-1Ml/ Dose) 1 ml Sodium Chloride 4Meq/ml Vial 24 meq In Amino Acid 5%-D20w +Lytes*E* 1,000 ml @ 100 mls/hr IV .BY DURATION [facility] Rx#:[id number] Sodium Chloride 4Meq/ml 1006 Vial 24 meq In Amino Acid 5%-D20w+Lytes*E* 1,000 ml @ 100 mls/hr IV .BY DURATION [facility] Rx#: [id number] Other: # Voids 3 2 - Labs CBC & Chem 7: 02/26/23 05:47 03/01/23 05:13 Labs: Abnormal Lab Results - Last 24 Hours (Table) 02/28/23 02/28/23 03/01/23 Range/Units 11:24 16:23 00:16 Sodium (137-145) mmol/L Glucose (74-99) mg/dL POC Glucose (mg/dL) 114 H 122 H 132 H (70-110) mg/dL 03/01/23 03/01/23 Range/Units 05:13 05:58 Sodium 135 L (137-145) mmol/L Glucose 128 H (74-99) mg/dL POC Glucose (mg/dL) 139 H (70-110) mg/dL
--- NOTE | 2023-03-01 12:22 | P.PN ---
Subjective Progress Note Date: 03/01/23 Principal diagnosis: Perforated colon and peritonitis patient is a 42-year-old male with a past medical history significant for chronic back pain history of appendectomy presenting to the hospital for abdominal pain initial concern for small bowel obstruction fail medical therapy patient is status post laparotomy with evidence of possible perforated sigmoid tumor status post sigmoid colectomy. On today's evaluation that is 03/01/2023, the patient remains to be afebrile, the patient is breathing comfortably on room air and denies any shortness of breath, the patient denies chest pain or cough , patient denies abdominal pain, patient denies any further nausea/vomiting and did have bowel movement Patient white count is 8.47 as of 02/26/2023, creatinine is 0.69, cultures are currently growing anaerobes Objective - Vital Signs Vital signs: Vital Signs Temp 97.8 F 03/01/23 06:48 Pulse 56 L 03/01/23 06:48 Resp 17 03/01/23 06:48 BP 130/77 03/01/23 06:48 Pulse Ox 98 03/01/23 06:48 FiO2 Intake & Output 02/28/23 03/01/23 03/01/23 18:59 06:59 18:59 Intake Total 1017 1006 Balance 1017 1006 Intake: Intake, IV Titration 1017 1006 Amount Mvi, Adult No.4 with Vit 1017 K 10 ml Trace (Conc-1Ml/ Dose) 1 ml Sodium Chloride 4Meq/ml Vial 24 meq In Amino Acid 5%-D20w +Lytes*E* 1,000 ml @ 100 mls/hr IV .BY DURATION TISH Rx#:[id number] Sodium Chloride 4Meq/ml 1006 Vial 24 meq In Amino Acid 5%-D20w+Lytes*E* 1,000 ml @ 100 mls/hr IV .BY DURATION TISH Rx#: [id number] Other: # Voids 3 2 1 - Exam GENERAL DESCRIPTION: A middle-age male up in the chair in no distress RESPIRATORY SYSTEM: Unlabored breathing , clear to auscultation anteriorly HEART: S1 S2 regular rate and rhythm , ABDOMEN: Soft , mild tenderness EXTREMITIES: No edema feet - Labs CBC & Chem 7: 02/26/23 05:47 03/01/23 05:13 Labs: Abnormal Lab Results - Last 24 Hours (Table) 02/28/23 03/01/23 03/01/23 Range/Units 16:23 00:16 05:13 Sodium 135 L (137-145) mmol/L Glucose 128 H (74-99) mg/dL POC Glucose (mg/dL) 122 H 132 H (70-110) mg/dL 03/01/23 03/01/23 Range/Units 05:58 11:33 Sodium (137-145) mmol/L Glucose (74-99) mg/dL POC Glucose (mg/dL) 139 H 119 H (70-110) mg/dL Assessment and Plan (1) Perforated sigmoid colon Current Visit: Yes Status: Acute Code(s): K63.1 - PERFORATION OF INTESTINE (NONTRAUMATIC) SNOMED Code(s): 620415044 (2) Peritonitis Current Visit: Yes Status: Acute Code(s): K65.9 - PERITONITIS, UNSPECIFIED SNOMED Code(s): 10755154 (3) Leukocytosis Current Visit: Yes Status: Acute Code(s): D72.829 - ELEVATED WHITE BLOOD CELL COUNT, UNSPECIFIED SNOMED Code(s): 478399362 Plan: 1patient presented to hospital with abdominal pain diagnosed with a small bowel obstruction in this patient who is status post laparotomy with suspected sigmoid colon tumor with perforation s/p sigmoid colectomy concerning for peritonitis will need to cover for the enteric gram-negative both aerobes and anaerobes 2-abdominal cultures grew mostly anaerobes 3-patient remains to be afebrile and white count has been normal 4-patient is slowly clinically improving. Continue with the current treatment of Zosyn 3.375 g every 8 hours and monitor clinical course closely Dictation was produced using [employer] dictation software. please excuse any grammatical, word or spelling errors. Time with Patient: Less than 30
--- NOTE | 2023-03-01 13:46 | P.PN ---
Subjective Progress Note Date: 03/01/23 This is a 42 year old male with no significant medical history. He reports not having a bowel movement for over a week. On Wednesday he began having abdominal pain, lower quadrant coming and going and reported difficulty urinating. He feels bloated. He does report losing some weight also. Vomited once on Wednesday. He has history of appendectomy, no prior bowel obstruction. He denies fever, denies chills. No shortness of breath, no nausea vomiting or diarrhea. He has not had any change in his eating habits, no bloody stools or dark stools. He initially rated his pain about 8 or 9 out of 10 and now pain is about a 7 out of 10 after NG tube has been placed patient had 700 mL bilious output through NG tube. Computed tomography scan had shown evidence of small bowel obstruction. He does have positive bowel sounds and did have small bowel movement. White count 11.4 on admission, Sodium 136. Urinalsis negative. Indwelling catheter was placed for the retention with 1L of urine removed. Patient is admitted to the hospital with general surgery consultation for the small bowel obstruction. 02/16/2023 Patient evaluated today sitting up in bed. NG tube remains in place with bilious outpatient 350 mls in the last 24 hours. Patient did report having a small bowel movement today and abdominal pain has improved nontender now. CT enterography done showing wall thickening of the sigmoid colon in the left lower quadrant as seen in prior imaging there is submucosal hyperenhancement. Findings suggestive of active inflammation in the sigmoid colon and a loop of jejunumin in the mid abdomen wall and upstream dilation suggestive of partial obstruction given there is some fluid transition of the colon from prior exam on one day earlier. Correlate for Chron's. Patient on IV solumedrol and IV antibiotics. Surgery recommending to keep patient NPO. White blood cell count remains normal. 02/17/2023 Patient evaluated today resting in bed. Had a small BM today, non bloody. Abdominal pain continues to improve. Abdominal xray shows increased dilated small bowel loops. Clinically he is improving. Remains on IV steriods, IV antibiotics. 02/18/2023 Patient is evaluated today, he is sitting up. Had a small BM this AM but felt he was not passing stool, he described it as "scar tissue." Did not pass voiding trial, states he had an episode of urinary retention in the past due to an enlarged prostate. IDC was reinserted and pt has been started on flomax. He continues on IV steroids, IV flagyl and IV metronidazole. Abdominal xray today shows similar gasseous distention of bowel throughout the abdomen with nasogastric tube in place. 02/19/2023 This is a pleasant 42 years old male who presents with small bowel obstruction secondary to abdominal adhesions with sigmoid mass with possible perforation, status post exploratory laparotomy, sigmoid colectomy and small bowel resection. Today is postoperative day #1. Comfortable fully awake and oriented, abdominal pain this morning is 04/21. NG t ube in place. No other new complaints no chest pain or dyspnea. His vitals stable. Has mild leukocytosis of 12.7 K. Currently covered with Zosyn normal saline 125 mL per hour 02/20/2023 Patient sitting up feels better, NG tube in place, abdominal pain is controlled Sigmoid biopsy still pending Patient is afebrile and vitals stable He remains on Zosyn, normal saline with 25 mm/h and TPN was started today 02/21/2023 pt is still wit NG Tube , he is npo he was started on TPN and he tolerates that well no or minimal abd pain and tenderness no bowel movement or passing gas yet 02/22/2023 Patient lying in bed comfortable, abdominal pain controlled Vitals stable RBC 10.0. Patient remains on normal saline 1 25 mL/h, TPN and Zosyn Reglan and Protonix were added today Surgery team are planning to discontinue Castillo catheter and epidural catheter 02/23/2023 Patient still has normal bowel movement, did not pass S although he has no abdominal pain. NG tube was taken off. No vomiting. 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 Oncology team were consulted who recommended chemotherapy after wound healing and also CT of the chest for staging which is pending for now. And creatinine within the reference range 02/26/2023 Patient is not in distress he is calm no abdominal pain and abdomen looks soft No bowel movement, passing gas, he had a CAT scan of the chest today which showed no metastatic disease but possible mild free air in the upper abdomen suspicious for perforated viscus versus recent surgery. Surgery team on the case. Barium swallow through was ordered showing dilated small bowel loops. Also: His 9.2 and ascendin.5 cm Patient remains on normal saline and Zosyn and TPN 02/27/1944 Patient yesterday and last night his became more distended without worsening pain or tenderness and after NG tube placement this morning his distention significantly came down. Patient reports having green bowel movement this morning Procedure replaced back. Patient remains on normal saline 1 25 mL/h, TPN, Zosyn Finisher Hand/oncologist team on the case for possible chemotherapy surgical kamila baxter 02/28/2023 Patient still with NG tube in place. And reports significant improvement today after had several bowel movement of green coloration since yesterday, he said yesterday he could not counts many times but this morning already has a twice greenish bowel movements No abdominal pain or tenderness. Patient remains on Zosyn, normal saline 1 25 mL/h Continue with TPN 03/01. Patient seen and examined. Patient had some abdominal cramps overnight but currently denies abdominal pain. Denies any nausea or vomiting. Currently on TPN. Surgery started patient on clear liquid diet REVIEW OF SYSTEMS: CONSTITUTIONAL: No fever, no malaise,. CARDIOVASCULAR: No chest pain, no palpitations, no syncope. PULMONARY: No shortness of breath, no cough, GASTROINTESTINAL: As mentioned above NEUROLOGICAL: No headaches, no weakness, PHYSICAL EXAMINATION: GENERAL: The patient is alert and oriented x3, not in any acute distress. Well developed, well nourished. HEENT: Pupils are round and equally reacting to light. EOMI. No scleral icterus. No conjunctival pallor. Normocephalic, atraumatic. No pharyngeal erythema. No thyromegaly. CARDIOVASCULAR: S1 and S2 present. No murmurs, rubs, or gallops. PULMONARY: Chest is clear to auscultation, no wheezing or crackles. ABDOMEN: Laparotomy surgical incision seen, no tenderness, no guarding MUSCULOSKELETAL: No joint swelling or deformity. EXTREMITIES: No cyanosis, clubbing, or pedal edema. NEUROLOGICAL: Gross neurological examination did not reveal any focal deficits. SKIN: No rashes. Assessment and plan Adenocarcinoma, of the sigmoid colon status post surgical resection Partial small bowel obstruction secondary to adhesions with sigmoid mass with possible perforation status post sigmoid colectomy and small bowel resection on 02/18 Adenocarcinoma of the sigmoid colon, new diagnosis intra-abdominal infection Urinary retention secondary to above History of appendectomy Monitor vital signs Monitor CBC Monitor CMP Continue telemetry monitoring Encourage use of incentive spirometer Continue IV Zosyn Continue TPN Surgery following ID following Oncology following Labs and medication were reviewed.. Continue same treatment. Continue with symptomatic treatment. Resume home medication. Monitor labs and vitals. DVT and GI prophylaxis. Further recommendations as per clinical course of the patient Dictation was produced using [employer] dictation software. please excuse any grammatical, word or spelling errors. Objective - Vital Signs Vital signs: Vital Signs Temp 97.8 F 03/01/23 06:48 Pulse 56 L 03/01/23 06:48 Resp 17 03/01/23 06:48 BP 130/77 03/01/23 06:48 Pulse Ox 98 03/01/23 06:48 FiO2 Intake & Output 02/28/23 03/01/23 03/01/23 18:59 06:59 18:59 Intake Total 1017 1006 Balance 1017 1006 Intake: Intake, IV Titration 1017 1006 Amount Mvi, Adult No.4 with Vit 1017 K 10 ml Trace (Conc-1Ml/ Dose) 1 ml Sodium Chloride 4Meq/ml Vial 24 meq In Amino Acid 5%-D20w +Lytes*E* 1,000 ml @ 100 mls/hr IV .BY DURATION TISH Rx#:[id number] Sodium Chloride 4Meq/ml 1006 Vial 24 meq In Amino Acid 5%-D20w+Lytes*E* 1,000 ml @ 100 mls/hr IV .BY DURATION TISH Rx#: [id number] Other: # Voids 3 2 1 - Labs CBC & Chem 7: 02/26/23 05:47 03/01/23 05:13 Labs: Abnormal Lab Results - Last 24 Hours (Table) 02/28/23 02/28/23 03/01/23 Range/Units 11:24 16:23 00:16 Sodium (137-145) mmol/L Glucose (74-99) mg/dL POC Glucose (mg/dL) 114 H 122 H 132 H (70-110) mg/dL 03/01/23 03/01/23 Range/Units 05:13 05:58 Sodium 135 L (137-145) mmol/L Glucose 128 H (74-99) mg/dL POC Glucose (mg/dL) 139 H (70-110) mg/dL
[2023-03-01] MEDS: ACETAMINOPHEN TAB 325 MG TAB PO PRN (16:12)
[2023-03-01 16:41] LABS: Glucose,Whole Blood 115 mg/dL (70-110)
[2023-03-01] MEDS: traMADol 50 MG TAB PO PRN (18:02)
[2023-03-01 19:08] LABS: Glucose,Whole Blood 113 mg/dL (70-110)
[2023-03-01 23:51] LABS: Glucose,Whole Blood 130 mg/dL (70-110)
[2023-03-02 05:33] LABS: Glucose,Whole Blood 110 mg/dL (70-110)
[2023-03-02 07:22] LABS: African American GFR (CKD) >90 (>60 ml/min/1.73 sqM); Anion Gap 6 mmol/L; Blood Urea Nitrogen 13 mg/dL (9-20); Calcium 8.8 mg/dL (8.4-10.2); Carbon Dioxide 26 mmol/L (22-30); Chloride 104 mmol/L (98-107); Glucose 91 mg/dL (74-99); Magnesium 1.9 mg/dL (1.6-2.3); Non-African American GFR(CKD) >90 (>60 ml/min/1.73 sqM); Potassium 4.2 mmol/L (3.5-5.1); Sodium 136 mmol/L (137-145)
[2023-03-02 07:57] VITALS: RESP 18
--- NOTE | 2023-03-02 11:41 | P.PN ---
Subjective Progress Note Date: 03/02/23 CHIEF COMPLAINT: Abdominal pain HISTORY OF PRESENT ILLNESS: Patient is postop day #12 status post exploratory laparotomy, sigmoid colectomy and small bowel resection for small bowel obstruction secondary to abdominal adhesion sigmoid colon mass with suspected perforation. Patient reports that he is feeling better. He is having loose bowel movements and flatus. Denies any nausea or vomiting. He tolerated the clear liquids. Pain is controlled with oral meds. Afebrile sodium 136 potassium 4.2 creatinine 0.71 magnesium 1.9 PHYSICAL EXAM: VITAL SIGNS: Reviewed. GENERAL: Well-developed in no acute distress. ABDOMEN: Soft. mildly distended. Less bloated. Incisional dressing clean, dry and intact. NEUROLOGIC: Alert and oriented. Cranial nerves II through XII grossly intact. ASSESSMENT: 1. Small bowel obstruction secondary to abdominal adhesion, sigmoid colon mass with suspected perforation status post exploratory laparotomy, sigmoid colectomy and small bowel resection 2. Colon adenocarcinoma PLAN: -Advance diet to full liquids -Continue pain management -Encouraged patient to ambulate in hallway -Continue TPN for nutrition support until oral intake increases -Continue antibiotics per ID service -Encourage patient to ambulate -Continue Reglan 10 mg IV every 6 hours -Encourage patient to use incentive spirometer -DVT prophylaxis subcu heparin and GI prophylaxis Protonix Physician Mortar Maker note has been reviewed by physician. Signing provider agrees with the documented findings, assessment, and plan of care. I have personally seen and examined the patient, reviewed the GAS PUMPER /PAs history, exam and MDM and agree with the assessment and plan as written. Based on total v isit time, I have performed more than 50% of the visit. As above: Patient doing well today. He has had about 8 soft/liquid stool since yesterday. Denies nausea or vomiting. Only has mild pain along the midline incision. He has been ambulating all day per the nursing staff. Tolerating full liquids currently. Plan probable discharge tomorrow on a full liquid diet if doing well. Gradual advancement of diet at home will be advised. We'll reassess tomorrow. Objective - Vital Signs Vital signs: Vital Signs Temp 97.5 F L 03/02/23 07:16 Pulse 68 03/02/23 07:16 Resp 18 03/02/23 07:16 BP 124/80 03/02/23 07:16 Pulse Ox 98 03/02/23 08:25 FiO2 Intake & Output 03/01/23 03/02/23 03/02/23 18:59 06:59 18:59 Intake Total 1017 1006 Balance 1017 1006 Weight 108.862 kg Intake: Intake, IV Titration 1017 1006 Amount Mvi, Adult No.4 with Vit 1017 K 10 ml Trace (Conc-1Ml/ Dose) 1 ml Sodium Chloride 4Meq/ml Vial 24 meq In Amino Acid 5%-D20w +Lytes*E* 1,000 ml @ 100 mls/hr IV .BY DURATION TISH Rx#:[id number] Sodium Chloride 4Meq/ml 1006 Vial 24 meq In Amino Acid 5%-D20w+Lytes*E* 1,000 ml @ 100 mls/hr IV .BY DURATION TISH Rx#: [id number] Other: # Voids 1 2 - Labs CBC & Chem 7: 02/26/23 05:47 03/02/23 06:09 Labs: Abnormal Lab Results - Last 24 Hours (Table) 03/01/23 03/01/23 03/01/23 Range/Units 11:33 16:40 19:07 Sodium (137-145) mmol/L POC Glucose (mg/dL) 119 H 115 H 113 H (70-110) mg/dL 03/01/23 03/02/23 Range/Units 23:49 06:09 Sodium 136 L (137-145) mmol/L POC Glucose (mg/dL) 130 H (70-110) mg/dL
--- NOTE | 2023-03-02 12:40 | P.PN ---
Subjective Progress Note Date: 03/02/23 This is a 42 year old male with no significant medical history. He reports not having a bowel movement for over a week. On Wednesday he began having abdominal pain, lower quadrant coming and going and reported difficulty urinating. He feels bloated. He does report losing some weight also. Vomited once on Wednesday. He has history of appendectomy, no prior bowel obstruction. He denies fever, denies chills. No shortness of breath, no nausea vomiting or diarrhea. He has not had any change in his eating habits, no bloody stools or dark stools. He initially rated his pain about 8 or 9 out of 10 and now pain is about a 7 out of 10 after NG tube has been placed patient had 700 mL bilious output through NG tube. Computed tomography scan had shown evidence of small bowel obstruction. He does have positive bowel sounds and did have small bowel movement. White count 11.4 on admission, Sodium 136. Urinalsis negative. Indwelling catheter was placed for the retention with 1L of urine removed. Patient is admitted to the hospital with general surgery consultation for the small bowel obstruction. 02/16/2023 Patient evaluated today sitting up in bed. NG tube remains in place with bilious outpatient 350 mls in the last 24 hours. Patient did report having a small bowel movement today and abdominal pain has improved nontender now. CT enterography done showing wall thickening of the sigmoid colon in the left lower quadrant as seen in prior imaging there is submucosal hyperenhancement. Findings suggestive of active inflammation in the sigmoid colon and a loop of jejunumin in the mid abdomen wall and upstream dilation suggestive of partial obstruction given there is some fluid transition of the colon from prior exam on one day earlier. Correlate for Chron's. Patient on IV solumedrol and IV antibiotics. Surgery recommending to keep patient NPO. White blood cell count remains normal. 02/17/2023 Patient evaluated today resting in bed. Had a small BM today, non bloody. Abdominal pain continues to improve. Abdominal xray shows increased dilated small bowel loops. Clinically he is improving. Remains on IV steriods, IV antibiotics. 02/18/2023 Patient is evaluated today, he is sitting up. Had a small BM this AM but felt he was not passing stool, he described it as "scar tissue." Did not pass voiding trial, states he had an episode of urinary retention in the past due to an enlarged prostate. IDC was reinserted and pt has been started on flomax. He continues on IV steroids, IV flagyl and IV metronidazole. Abdominal xray today shows similar gasseous distention of bowel throughout the abdomen with nasogastric tube in place. 02/19/2023 This is a pleasant 42 years old male who presents with small bowel obstruction secondary to abdominal adhesions with sigmoid mass with possible perforation, status post exploratory laparotomy, sigmoid colectomy and small bowel resection. Today is postoperative day #1. Comfortable fully awake and oriented, abdominal pain this morning is 04/21. NG t ube in place. No other new complaints no chest pain or dyspnea. His vitals stable. Has mild leukocytosis of 12.7 K. Currently covered with Zosyn normal saline 125 mL per hour 02/20/2023 Patient sitting up feels better, NG tube in place, abdominal pain is controlled Sigmoid biopsy still pending Patient is afebrile and vitals stable He remains on Zosyn, normal saline with 25 mm/h and TPN was started today 02/21/2023 pt is still wit NG Tube , he is npo he was started on TPN and he tolerates that well no or minimal abd pain and tenderness no bowel movement or passing gas yet 02/22/2023 Patient lying in bed comfortable, abdominal pain controlled Vitals stable RBC 10.0. Patient remains on normal saline 1 25 mL/h, TPN and Zosyn Reglan and Protonix were added today Surgery team are planning to discontinue Castillo catheter and epidural catheter 02/23/2023 Patient still has normal bowel movement, did not pass S although he has no abdominal pain. NG tube was taken off. No vomiting. 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 Oncology team were consulted who recommended chemotherapy after wound healing and also CT of the chest for staging which is pending for now. And creatinine within the reference range 02/26/2023 Patient is not in distress he is calm no abdominal pain and abdomen looks soft No bowel movement, passing gas, he had a CAT scan of the chest today which showed no metastatic disease but possible mild free air in the upper abdomen suspicious for perforated viscus versus recent surgery. Surgery team on the case. Barium swallow through was ordered showing dilated small bowel loops. Also: His 9.2 and ascendin.5 cm Patient remains on normal saline and Zosyn and TPN 02/27/1944 Patient yesterday and last night his became more distended without worsening pain or tenderness and after NG tube placement this morning his distention significantly came down. Patient reports having green bowel movement this morning Procedure replaced back. Patient remains on normal saline 1 25 mL/h, TPN, Zosyn Winch Runner/oncologist team on the case for possible chemotherapy surgical kamila baxter 02/28/2023 Patient still with NG tube in place. And reports significant improvement today after had several bowel movement of green coloration since yesterday, he said yesterday he could not counts many times but this morning already has a twice greenish bowel movements No abdominal pain or tenderness. Patient remains on Zosyn, normal saline 1 25 mL/h Continue with TPN 03/01. Patient seen and examined. Patient had some abdominal cramps overnight but currently denies abdominal pain. Denies any nausea or vomiting. Currently on TPN. Surgery started patient on clear liquid diet 03/02. Patient seen and examined. Labs were done showed sodium 136, potassium 4.2, BUN 13, creatinine 0.71. States he feels much better, tolerating clear liquid diet, diet advanced to full liquid REVIEW OF SYSTEMS: CONSTITUTIONAL: No fever, no malaise,. CARDIOVASCULAR: No chest pain, no palpitations, no syncope. PULMONARY: No shortness of breath, no cough, GASTROINTESTINAL: As mentioned above NEUROLOGICAL: No headaches, no weakness, PHYSICAL EXAMINATION: GENERAL: The patient is alert and oriented x3, not in any acute distress. Well developed, well nourished. HEENT: Pupils are round and equally reacting to light. EOMI. No scleral icterus. No conjunctival pallor. Normocephalic, atraumatic. No pharyngeal erythema. No thyromegaly. CARDIOVASCULAR: S1 and S2 present. No murmurs, rubs, or gallops. PULMONARY: Chest is clear to auscultation, no wheezing or crackles. ABDOMEN: Laparotomy surgical incision seen, no tenderness, no guarding MUSCULOSKELETAL: No joint swelling or deformity. EXTREMITIES: No cyanosis, clubbing, or pedal edema. NEUROLOGICAL: Gross neurological examination did not reveal any focal deficits. SKIN: No rashes. Assessment and plan Adenocarcinoma, of the sigmoid colon status post surgical resection Partial small bowel obstruction secondary to adhesions with sigmoid mass with possible perforation status post sigmoid colectomy and small bowel resection on 02/18 Adenocarcinoma of the sigmoid colon, new diagnosis intra-abdominal infection Urinary retention secondary to above History of appendectomy Monitor vital signs Monitor CBC Monitor CMP Continue telemetry monitoring Encourage use of incentive spirometer Continue IV Zosyn Continue TPN Advance diet to full liquid Surgery following ID following Oncology following Labs and medication were reviewed.. Continue same treatment. Continue with symptomatic treatment. Resume home medication. Monitor labs and vitals. DVT and GI prophylaxis. Further recommendations as per clinical course of the patient Dictation was produced using [employer] dictation software. please excuse any grammatical, word or spelling errors. Objective - Vital Signs Vital signs: Vital Signs Temp 97.5 F L 03/02/23 07:16 Pulse 68 03/02/23 07:16 Resp 18 03/02/23 07:16 BP 124/80 03/02/23 07:16 Pulse Ox 98 03/02/23 08:25 FiO2 Intake & Output 03/01/23 03/02/23 03/02/23 18:59 06:59 18:59 Intake Total 1017 1006 Balance 1017 1006 Weight 108.862 kg Intake: Intake, IV Titration 1017 1006 Amount Mvi, Adult No.4 with Vit 1017 K 10 ml Trace (Conc-1Ml/ Dose) 1 ml Sodium Chloride 4Meq/ml Vial 24 meq In Amino Acid 5%-D20w +Lytes*E* 1,000 ml @ 100 mls/hr IV .BY DURATION TISH Rx#:[id number] Sodium Chloride 4Meq/ml 1006 Vial 24 meq In Amino Acid 5%-D20w+Lytes*E* 1,000 ml @ 100 mls/hr IV .BY DURATION TISH Rx#: [id number] Other: # Voids 1 2 - Labs CBC & Chem 7: 02/26/23 05:47 03/02/23 06:09 Labs: Abnormal Lab Results - Last 24 Hours (Table) 03/01/23 03/01/23 03/01/23 Range/Units 11:33 16:40 19:07 Sodium (137-145) mmol/L POC Glucose (mg/dL) 119 H 115 H 113 H (70-110) mg/dL 03/01/23 03/02/23 Range/Units 23:49 06:09 Sodium 136 L (137-145) mmol/L POC Glucose (mg/dL) 130 H (70-110) mg/dL
--- NOTE | 2023-03-02 14:30 | P.PN ---
Subjective Progress Note Date: 03/02/23 Principal diagnosis: Perforated colon and peritonitis patient is a 42-year-old male with a past medical history significant for chronic back pain history of appendectomy presenting to the hospital for abdominal pain initial concern for small bowel obstruction fail medical therapy patient is status post laparotomy with evidence of possible perforated sigmoid tumor status post sigmoid colectomy. On today's evaluation that is 03/02/2023, the patient continues to be afebrile, the patient is breathing comfortably on room air without the need for supplemental oxygen, the patient denies shortness of breath chest pain and no significant cough , patient denies nausea/vomiting, no abdominal pain and patient continue to have a bowel movement Patient white count is 8.47 as of 02/26/2023, creatinine is 0.71, cultures are currently growing anaerobes Objective - Vital Signs Vital signs: Vital Signs Temp 97.5 F L 03/02/23 07:16 Pulse 68 03/02/23 07:16 Resp 18 03/02/23 07:16 BP 124/80 03/02/23 07:16 Pulse Ox 98 03/02/23 08:25 FiO2 Intake & Output 03/01/23 03/02/23 03/02/23 18:59 06:59 18:59 Intake Total 1017 1006 Balance 1017 1006 Weight 108.862 kg Intake: Intake, IV Titration 1017 1006 Amount Mvi, Adult No.4 with Vit 1017 K 10 ml Trace (Conc-1Ml/ Dose) 1 ml Sodium Chloride 4Meq/ml Vial 24 meq In Amino Acid 5%-D20w +Lytes*E* 1,000 ml @ 100 mls/hr IV .BY DURATION TISH Rx#:[id number] Sodium Chloride 4Meq/ml 1006 Vial 24 meq In Amino Acid 5%-D20w+Lytes*E* 1,000 ml @ 100 mls/hr IV .BY DURATION TISH Rx#: [id number] Other: # Voids 1 2 1 # Bowel Movements 1 - Exam GENERAL DESCRIPTION: A middle-age male up in the chair in no distress RESPIRATORY SYSTEM: Unlabored breathing , clear to auscultation anteriorly HEART: S1 S2 regular rate and rhythm , ABDOMEN: Soft , mild tenderness EXTREMITIES: No edema feet - Labs CBC & Chem 7: 02/26/23 05:47 03/02/23 06:09 Labs: Abnormal Lab Results - Last 24 Hours (Table) 03/01/23 03/01/23 03/01/23 Range/Units 16:40 19:07 23:49 Sodium (137-145) mmol/L POC Glucose (mg/dL) 115 H 113 H 130 H (70-110) mg/dL 03/02/23 Range/Units 06:09 Sodium 136 L (137-145) mmol/L POC Glucose (mg/dL) (70-110) mg/dL Assessment and Plan (1) Perforated sigmoid colon Current Visit: Yes Status: Acute Code(s): K63.1 - PERFORATION OF INTESTINE (NONTRAUMATIC) SNOMED Code(s): 473094815 (2) Peritonitis Current Visit: Yes Status: Acute Code(s): K65.9 - PERITONITIS, UNSPECIFIED SNOMED Code(s): 05635998 (3) Leukocytosis Current Visit: Yes Status: Acute Code(s): D72.829 - ELEVATED WHITE BLOOD CELL COUNT, UNSPECIFIED SNOMED Code(s): 780245882 Plan: 1patient presented to hospital with abdominal pain diagnosed with a small bowel obstruction in this patient who is status post laparotomy with suspected sigmoid colon tumor with perforation s/p sigmoid colectomy concerning for peritonitis will need to cover for the enteric gram-negative both aerobes and anaerobes 2-abdominal cultures grew mostly anaerobes 3-patient remains to be afebrile and white count has been normal 4-patient has shown clinical improvement and will continue with Zosyn 3.375 g every 8 hours and hopefully transition to oral on discharge Dictation was produced using [email or web address] dictation software. please excuse any grammatical, word or spelling errors. Time with Patient: Less than 30
[2023-03-02 16:05] LABS: Methylmalonic Acid <0.10 umol/L (<0.40)
[2023-03-02 17:38] LABS: Glucose,Whole Blood 106 mg/dL (70-110)
[2023-03-02 19:26] LABS: Glucose,Whole Blood 126 mg/dL (70-110)
[2023-03-03 00:41] LABS: Glucose,Whole Blood 139 mg/dL (70-110)
[2023-03-03 03:08] VITALS: TEMP 97.8
[2023-03-03 05:36] LABS: Glucose,Whole Blood 118 mg/dL (70-110)
[2023-03-03 06:36] LABS: African American GFR (CKD) >90 (>60 ml/min/1.73 sqM); Anion Gap 6 mmol/L; Blood Urea Nitrogen 13 mg/dL (9-20); Carbon Dioxide 26 mmol/L (22-30); Chloride 103 mmol/L (98-107); Glucose 109 mg/dL (74-99); Magnesium 1.9 mg/dL (1.6-2.3); Non-African American GFR(CKD) >90 (>60 ml/min/1.73 sqM); Phosphorus 4.1 mg/dL (2.5-4.5); Potassium 4.4 mmol/L (3.5-5.1); Sodium 135 mmol/L (137-145)
[2023-03-03 07:30] VITALS: BP 126/76; PULSE 52
[2023-03-03 08:48] LABS: Basophils # (A) 0.04 X 10*3/uL (0.00-0.10); Basophils % (A) 0.9 %; Eosinophils # (A) 0.28 X 10*3/uL (0.04-0.35); Eosinophils % (A) 6.5 %; HCT 33.5 % (39.6-50.0); HGB 10.5 g/dL (13.0-17.0); Lymphocytes # (A) 0.71 X 10*3/uL (0.90-5.00); Lymphocytes % (A) 16.4 %; MCH 25.6 pg (27.0-32.0); MCHC 31.3 g/dL (32.0-37.0); MCV 81.7 FL (80.0-97.0); Monocytes # (A) 0.43 X 10*3/uL (0.20-1.00); Monocytes % (A) 9.9 %; NRBC Per 100 WBC 0 X 10*3/uL (0.00-0.01); Neutrophils # (A) 2.86 X 10*3/uL (1.80-7.70); Neutrophils % (A) 66.1 %; Platelet Count 352 X 10*3/uL (140-440); RDW 13.8 % (11.5-14.5); WBC 4.33 X 10*3/uL (4.50-10.00)
--- NOTE | 2023-03-03 11:04 | P.PN ---
Subjective Progress Note Date: 03/03/23 CHIEF COMPLAINT: Abdominal pain HISTORY OF PRESENT ILLNESS: Patient is postop day #13 status post exploratory laparotomy, sigmoid colectomy and small bowel resection for small bowel obstruction secondary to abdominal adhesion sigmoid colon mass with suspected perforation. Patient is tolerating diet. He feels well. He reports very minimal pain at incision site. Rates pain 1 out of 10. He has not required pain medication suggestive morning. He is having bowel movements. Afebrile. WBC 4.33 Hgb 10.5 platelets 352 sodium 135 potassium 4.4 creatinine 0.75 PHYSICAL EXAM: VITAL SIGNS: Reviewed. GENERAL: Well-developed in no acute distress. ABDOMEN: Soft. Nondistended. Incision site clean dry and intact. NEUROLOGIC: Alert and oriented. Cranial nerves II through XII grossly intact. ASSESSMENT: 1. Small bowel obstruction secondary to abdominal adhesion, sigmoid colon mass with suspected perforation status post exploratory laparotomy, sigmoid colectomy and small bowel resection 2. Colon adenocarcinoma 3. Postoperative ileus resolved, can be expected finding PLAN: -Patient can be discharged from surgical standpoint -Continue full liquid diet after discharge until seen by surgeon -Wean off TPN -Infectious disease is recommending 7 days of Augmentin. Prescription written -Encourage patient to use incentive spirometer -Encourage patient to ambulate -DVT prophylaxis subcu heparin and GI prophylaxis Protonix Physician Solar Installer Pv note has been reviewed by physician. Signing provider agrees with the documented findings, assessment, and plan of care. Objective - Vital Signs Vital signs: Vital Signs Temp 97.8 F 03/03/23 06:36 Pulse 52 L 03/03/23 06:36 Resp 18 03/03/23 06:36 BP 126/76 03/03/23 06:36 Pulse Ox 97 03/03/23 06:36 FiO2 Intake & Output 03/02/23 03/03/23 03/03/23 18:59 06:59 18:59 Intake Total 1006 Balance 1006 Intake: Intake, IV Titration 1006 Amount Sodium Chloride 4Meq/ml 1006 Vial 24 meq In Amino Acid 5%-D20w+Lytes*E* 1,000 ml @ 100 mls/hr IV .BY DURATION TISH Rx#: [id number] Other: # Voids 1 2 # Bowel Movements 1 - Labs CBC & Chem 7: 03/03/23 05:43 03/03/23 05:43 Labs: Abnormal Lab Results - Last 24 Hours (Table) 03/02/23 03/03/23 03/03/23 Range/Units 11:44 00:38 05:33 WBC (4.50-10.00) X 10*3/uL RBC (4.40-5.60) X 10*6/uL Hgb (13.0-17.0) g/dL Hct (39.6-50.0) % MCH (27.0-32.0) pg MCHC (32.0-37.0) g/dL MPV (9.5-12.2) FL Lymphocytes # (0.90-5.00) X 10*3/uL Sodium (137-145) mmol/L Glucose (74-99) mg/dL POC Glucose (mg/dL) 126 H 139 H 118 H (70-110) mg/dL 03/03/23 03/03/23 Range/Units 05:43 05:43 WBC 4.33 L (4.50-10.00) X 10*3/uL RBC 4.10 L (4.40-5.60) X 10*6/uL Hgb 10.5 L (13.0-17.0) g/dL Hct 33.5 L (39.6-50.0) % MCH 25.6 L (27.0-32.0) pg MCHC 31.3 L (32.0-37.0) g/dL MPV 9.0 L (9.5-12.2) FL Lymphocytes # 0.71 L (0.90-5.00) X 10*3/uL Sodium 135 L (137-145) mmol/L Glucose 109 H (74-99) mg/dL POC Glucose (mg/dL) (70-110) mg/dL
[2023-03-03 11:45] LABS: Glucose,Whole Blood 101 mg/dL (70-110)
--- NOTE | 2023-03-03 12:12 | P.DS ---
Providers Date of admission: 02/14/23 17:14 Expected date of discharge: 03/03/23 Attending physician: Cydney Flroes Consults: 02/14/23 16:48 Consult Physician Urgent Consulting Provider: Jaguar Isaac Consult Reason/Comments: SBO Do you want consulting provider notified?: Already Contacted 02/18/23 20:29 Consult Physician Routine Consulting Provider: Jayson Argueta Consult Reason/Comments: Urinary retention Do you want consulting provider notified?: Yes, Notify in am Consult Physician Routine Consulting Provider: Gelacio Dorman Consult Reason/Comments: Suspected colon perforation Do you want consulting provider notified?: Yes, Notify in am 02/25/23 10:29 Consult Physician Routine Consulting Provider: Iam Franz Consult Reason/Comments: colon cancer Do you want consulting provider notified?: Yes Primary care physician: Stated None Hospital Course: Discharge diagnoses; Adenocarcinoma, of the sigmoid colon status post surgical resection Partial small bowel obstruction secondary to adhesions with sigmoid mass with possible perforation status post sigmoid colectomy and small bowel resection on 02/18 Adenocarcinoma of the sigmoid colon, new diagnosis intra-abdominal infection Urinary retention secondary to above History of appendectomy Hospital course; This is a 42 year old male with no significant medical history. He reports not having a bowel movement for over a week. On Wednesday he began having abdominal pain, lower quadrant coming and going and reported difficulty urinating. He feel s bloated. He does report losing some weight also. Vomited once on Wednesday. He has history of appendectomy, no prior bowel obstruction. He denies fever, denies chills. No shortness of breath, no nausea vomiting or diarrhea. He has not had any change in his eating habits, no bloody stools or dark stools. He initially rated his pain about 8 or 9 out of 10 and now pain is about a 7 out of 10 after NG tube has been placed patient had 700 mL bilious output through NG tube. Computed tomography scan had shown evidence of small bowel obstruction. He does have positive bowel sounds and did have small bowel movement. White count 11.4 on admission, Sodium 136. Urinalsis negative. Indwelling catheter was placed for the retention with 1L of urine removed. Patient is admitted to the hospital with general surgery consultation for the small bowel obstruction. 02/16/2023 Patient evaluated today sitting up in bed. NG tube remains in place with bilious outpatient 350 mls in the last 24 hours. Patient did report having a small bowel movement today and abdominal pain has improved nontender now. CT enterography done showing wall thickening of the sigmoid colon in the left lower quadrant as seen in prior imaging there is submucosal hyperenhancement. Findings suggestive of active inflammation in the sigmoid colon and a loop of jejunumin in the mid abdomen wall and upstream dilation suggestive of partial obstruction given there is some fluid transition of the colon from prior exam on one day earlier. Correlate for Chron's. Patient on IV solumedrol and IV antibiotics. Surgery recommending to keep patient NPO. White blood cell count remains normal. 02/17/2023 Patient evaluated today resting in bed. Had a small BM today, non bloody. Abdominal pain continues to improve. Abdominal xray shows increased dilated small bowel loops. Clinically he is improving. Remains on IV steriods, IV antibiotics. 02/18/2023 Patient is evaluated today, he is sitting up. Had a small BM this AM but felt he was not passing stool, he described it as "scar tissue." Did not pass voiding trial, states he had an episode of urinary retention in the past due to an enlarged prostate. IDC was reinserted and pt has been started on flomax. He continues on IV steroids, IV flagyl and IV metronidazole. Abdominal xray today shows similar gasseous distention of bowel throughout the abdomen with nasogastric tube in place. 02/19/2023 This is a pleasant 42 years old male who presents with small bowel obstruction secondary to abdominal adhesions with sigmoid mass with possible perforation, status post exploratory laparotomy, sigmoid colectomy and small bowel resection. Today is postoperative day #1. Comfortable fully awake and oriented, abdominal pain this morning is 1/10. NG tube in place. No other new complaints no chest pain or dyspnea. His vitals stable. Has mild leukocytosis of 12.7 K. Currently covered with Zosyn normal saline 125 mL per hour 02/20/2023 Patient sitting up feels better, NG tube in place, abdominal pain is controlled Sigmoid biopsy still pending Patient is afebrile and vitals stable He remains on Zosyn, normal saline with 25 mm/h and TPN was started today 02/21/2023 pt is still wit NG Tube , he is npo he was started on TPN and he tolerates that well no or minimal abd pain and tenderness no bowel movement or passing gas yet 02/22/2023 Patient lying in bed comfortable, abdominal pain controlled Vitals stable RBC 10.0. Patient remains on normal saline 1 25 mL/h, TPN and Zosyn Reglan and Protonix were added today Surgery team are planning to discontinue Castillo catheter and epidural catheter 02/23/2023 Patient still has normal bowel movement, did not pass S although he has no abdominal pain. NG tube was taken off. No vomiting. 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 Oncology team were consulted who recommended chemotherapy after wound healing and also CT of the chest for staging which is pending for now. And creatinine within the reference range 02/26/2023 Patient is not in distress he is calm no abdominal pain and abdomen looks soft No bowel movement, passing gas, he had a CAT scan of the chest today which showed no metastatic disease but possible mild free air in the upper abdomen suspicious for perforated viscus versus recent surgery. Surgery team on the case. Barium swallow through was ordered showing dilated small bowel loops. Also: His 9.2 and ascendin.5 cm Patient remains on normal saline and Zosyn and TPN 02/27/1944 Patient yesterday and last night his became more distended without worsening pain or tenderness and after NG tube placement this morning his distention significantly came down. Patient reports having green bowel movement this morning Procedure replaced back. Patient remains on normal saline 1 25 mL/h, TPN, Zosyn Floor Space Allocator/oncologist team on the case for possible chemotherapy surgical problem 02/28/2023 Patient still with NG tube in place. And reports significant improvement today after had several bowel movement of green coloration since yesterday, he said yesterday he could not counts many times but this morning already has a twice greenish bowel movements No abdominal pain or tenderness. Patient remains on Zosyn, normal saline 1 25 mL/h Continue with TPN 03/01. Patient seen and examined. Patient had some abdominal cramps overnight but currently denies abdominal pain. Denies any nausea or vomiting. Currently on TPN. Surgery started patient on clear liquid diet 03/02. Patient seen and examined. Labs were done showed sodium 136, potassium 4.2, BUN 13, creatinine 0.71. States he feels much better, tolerating clear liquid diet, diet advanced to full liquid 03/03. Patient will tolerate regular diet. Surgery cleared the patient for discharge. Being discharged on oral Augmentin for 1 week. Outpatient follow-up with ID and general surgery PHYSICAL EXAMINATION: GENERAL: The patient is alert and oriented x3, not in any acute distress. Well developed, well nourished. HEENT: Pupils are round and equally reacting to light. EOMI. No scleral icterus. No conjunctival pallor. Normocephalic, atraumatic. No pharyngeal erythema. No thyromegaly. CARDIOVASCULAR: S1 and S2 present. No murmurs, rubs, or gallops. PULMONARY: Chest is clear to auscultation, no wheezing or crackles. ABDOMEN: Laparotomy surgical incision seen, no tenderness, no guarding MUSCULOSKELETAL: No joint swelling or deformity. EXTREMITIES: No cyanosis, clubbing, or pedal edema. NEUROLOGICAL: Gross neurological examination did not reveal any focal deficits. SKIN: No rashes. Dictation was produced using [employer] dictation software. please excuse any grammatical, word or spelling errors. Patient Condition at Discharge: Fair Plan - Discharge Summary Discharge Rx Participant: No New Discharge Prescriptions: New traMADol HCl [Ultram] 50 mg PO Q6HR PRN 3 Days #12 tab PRN Reason: Pain Pantoprazole Sodium [Protonix] 40 mg PO DAILY 30 Days #30 tab Amoxic-Pot Clav 875-125Mg [Augmentin 875-125] 1 tab PO Q12HR 7 Days #14 tab Acetaminophen Tab [Tylenol Tab] 650 mg PO Q4H PRN #30 tablet PRN Reason: Pain Tamsulosin [Flomax] 0.4 mg PO BID 30 Days #60 cap Discharge Medication List Acetaminophen Tab [Tylenol Tab] 650 mg PO Q4H PRN #30 tablet 03/03/23 [Rx] Amoxic-Pot Clav 875-125Mg [Augmentin 875-125] 1 tab PO Q12HR 7 Days #14 tab 03/03/23 [Rx] Pantoprazole Sodium [Protonix] 40 mg PO DAILY 30 Days #30 tab 03/03/23 [Rx] Tamsulosin [Flomax] 0.4 mg PO BID 30 Days #60 cap 03/03/23 [Rx] traMADol HCl [Ultram] 50 mg PO Q6HR PRN 3 Days #12 tab 03/03/23 [Rx] Follow up Appointment(s)/Referral(s): Jaguar Isaac MD [Medical Doctor] - 03/10/23 2:10 pm Oneal Valverde MD [STAFF PHYSICIAN] - 4 Weeks (office will call with appointment time) None,Stated [Primary Care Provider] - 1-2 days Activity/Diet/Wound Care/Special Instructions: No driving while taking Ultram No lifting over 10 pounds You may shower. No soaking or tub baths for 2 weeks Very light activity until you are reevaluated at your follow up appointment with your surgeon Continue a Full liquid diet until seen by surgeon Discharge Disposition: HOME SELF-CARE
--- NOTE | 2023-03-10 18:14 | P.PN ---
Subjective Progress Note Date: 03/03/23 Principal diagnosis: Perforated colon and peritonitis patient is a 42-year-old male with a past medical history significant for chronic back pain history of appendectomy presenting to the hospital for abdominal pain initial concern for small bowel obstruction fail medical therapy patient is status post laparotomy with evidence of possible perforated sigmoid tumor status post sigmoid colectomy. On today's evaluation that is 03/03/2023, the patient remains to be afebrile, the patient is breathing comfortably on room air and the patient denies any shortness of breath, the patient denies chest pain or any cough , patient denies abdominal pain, no nausea/vomiting and did have bowel movements Patient white count is 4.33, creatinine is 0.75, cultures are currently growing anaerobes Objective - Vital Signs Vital signs: Vital Signs Temp 97.8 F 03/03/23 06:36 Pulse 52 L 03/03/23 06:36 Resp 18 03/03/23 06:36 BP 126/76 03/03/23 06:36 Pulse Ox 97 03/03/23 06:36 FiO2 Intake & Output 03/02/23 03/03/23 03/03/23 18:59 06:59 18:59 Intake Total 1006 Balance 1006 Intake: Intake, IV Titration 1006 Amount Sodium Chloride 4Meq/ml 1006 Vial 24 meq In Amino Acid 5%-D20w+Lytes*E* 1,000 ml @ 100 mls/hr IV .BY DURATION [facility] Rx#: [id number] Other: # Voids 1 2 # Bowel Movements 1 - Exam GENERAL DESCRIPTION: A middle-age male up in the chair in no distress RESPIRATORY SYSTEM: Unlabored breathing , clear to auscultation anteriorly HEART: S1 S2 regular rate and rhythm , ABDOMEN: Soft , mild tenderness EXTREMITIES: No edema feet - Labs CBC & Chem 7: 03/03/23 05:43 03/03/23 05:43 Labs: Abnormal Lab Results - Last 24 Hours (Table) 03/02/23 03/03/23 03/03/23 Range/Units 11:44 00:38 05:33 WBC (4.50-10.00) X 10*3/uL RBC (4.40-5.60) X 10*6/uL Hgb (13.0-17.0) g/dL Hct (39.6-50.0) % MCH (27.0-32.0) pg MCHC (32.0-37.0) g/dL MPV (9.5-12.2) FL Lymphocytes # (0.90-5.00) X 10*3/uL Sodium (137-145) mmol/L Glucose (74-99) mg/dL POC Glucose (mg/dL) 126 H 139 H 118 H (70-110) mg/dL 03/03/23 03/03/23 Range/Units 05:43 05:43 WBC 4.33 L (4.50-10.00) X 10*3/uL RBC 4.10 L (4.40-5.60) X 10*6/uL Hgb 10.5 L (13.0-17.0) g/dL Hct 33.5 L (39.6-50.0) % MCH 25.6 L (27.0-32.0) pg MCHC 31.3 L (32.0-37.0) g/dL MPV 9.0 L (9.5-12.2) FL Lymphocytes # 0.71 L (0.90-5.00) X 10*3/uL Sodium 135 L (137-145) mmol/L Glucose 109 H (74-99) mg/dL POC Glucose (mg/dL) (70-110) mg/dL Assessment and Plan (1) Perforated sigmoid colon Status: Acute Code(s): K63.1 - PERFORATION OF INTESTINE (NONTRAUMATIC) SNOMED Code(s): 442940076 (2) Peritonitis Status: Acute Code(s): K65.9 - PERITONITIS, UNSPECIFIED SNOMED Code(s): 93203400 (3) Leukocytosis Status: Acute Code(s): D72.829 - ELEVATED WHITE BLOOD CELL COUNT, UNSPECIFIED SNOMED Code(s): 737440550 Plan: 1patient presented to hospital with abdominal pain diagnosed with a small bowel obstruction in this patient who is status post laparotomy with suspected sigmoid colon tumor with perforation s/p sigmoid colectomy concerning for peritonitis will need to cover for the enteric gram-negative both aerobes and anaerobes 2-abdominal cultures grew mostly anaerobes 3-patient remains to be afebrile and white count has been normal 4-patient has shown clinical improvement and will finish therapy with a short course of oral Augmentin on discharge discussed with the admitting team Dictation was produced using [employer] dictation software. please excuse any gr ammatical, word or spelling errors. Time with Patient: Less than 30
== END 2023-03-03 14:35 | disposition home or self-care (01) | DRG 329 ==
LOC: EC 13:50 → 5NMEDONC 17:14 → 6NMEDSUR 02-22 18:47 → 4SSUR 02-26 18:55
PROVIDERS: ADMIT Internal Medicine; ATTEND Internal Medicine
PROC: 0D9670Z Drainage of Stomach with Drainage Device, Via Natural or Artificial Opening (ICD-10-PCS; 2023-02-14)
PROC: 0DBA0ZZ Excision of Jejunum, Open Approach (ICD-10-PCS; 2023-02-18)
PROC: 3E0R3BZ Introduction of Anesthetic Agent into Spinal Canal, Percutaneous Approach (ICD-10-PCS; 2023-02-18)
PROC: 00HU33Z Insertion of Infusion Device into Spinal Canal, Percutaneous Approach (ICD-10-PCS; 2023-02-18)
PROC: 0DTN0ZZ Resection of Sigmoid Colon, Open Approach (ICD-10-PCS; principal; 2023-02-18 11:00)
PROC: 3E0436Z Introduction of Nutritional Substance into Central Vein, Percutaneous Approach (ICD-10-PCS; 2023-02-20)
PROC: 02HV33Z Insertion of Infusion Device into Superior Vena Cava, Percutaneous Approach (ICD-10-PCS; 2023-02-25)
DX: C18.7 Malignant neoplasm of sigmoid colon (principal); K63.1 Perforation of intestine (nontraumatic); K65.9 Peritonitis, unspecified; K56.51 Intestinal adhesions [bands], with partial obstruction; K56.7 Ileus, unspecified; D63.0 Anemia in neoplastic disease; R33.8 Other retention of urine; G89.29 Other chronic pain; M54.9 Dorsalgia, unspecified; N40.0 Benign prostatic hyperplasia without lower urinary tract symptoms; D18.09 Hemangioma of other sites; Z28.310 Unvaccinated for COVID-19; Z79.899 Other long term (current) drug therapy
CPT/HCPCS: 36415; 36573; 51702; 51798; 71045; 71260; 74018; 74019; 74177; 74178; 74250; 76770; 80048; 80053; 81001; 81003; 82330; 82525; 82607; 82728; 82746; 83540; 83550; 83605; 83690; 83735; 83921; 84100; 84478; 85025; 86140; 86850; 86900; 86901; 87040; 87070; 87075; 87205; 88307; 88309; 88341; 88342; 94760; 96361; 96374; 99285